=== PATIENT | female | born 1965 | race Caucasian/White ===

== ENCOUNTER 2016-12-08 13:00 | Inpatient (IN) ==
[2016-12-08 14:52] LABS: Basophils # (Auto) 0 K/mcL (0.0-0.3); Basophils % (Auto) 0.3 % (0.0-2.0); Eosinophils # (Auto) 0.1 K/mcL (0.0-0.7); Eosinophils % (Auto) 0.5 % (0.0-7.0); Lymphocytes # (Auto) 3.2 K/mcL (1.5-4.8); Lymphocytes % (Auto) 32.1 % (15.5-49.0); Mean Cell Volume 98.5 fL (80.0-100.0); Mean Corpuscular Hemoglobin 33.5 pg (26.0-34.0); Monocytes # (Auto) 0.5 K/mcL (0.1-0.9); Monocytes % (Auto) 5.1 % (1.0-12.0); Platelet Count 250 K/mcL (140-440); RBC 4.58 M/mcL (4.00-5.20); Red Cell Distribution Width 12.9 % (11.5-14.5)
[2016-12-08 15:02] LABS: Blood Urea Nitrogen 10 mg/dl (6-20)
[2016-12-08 15:46] LABS: Appearance,Urine CLOUDY; Bacteria,Urine 0 /hpf (0); Bilirubin,Urine NEG (NEG); Color,Urine YELLOW; Glucose,Urine (UA) NEGATIVE (NEG); Leukocyte Esterase,Urine 25 /uL (NEG); Mucus,Urine MANY /hpf (0); Nitrate,Urine NEG (NEG); Protein,Urine NEG (NEG); Specific Gravity,Urine 1.025 (1.000-1.035); Urine Blood NEG mg/dL (<0.03); Urine Budding Yeast FEW /hpf (0); Urine RBC 6 /hpf (0-1); Urine Squamous Epithelial Cell 21 /hpf (0-4); Urine Transitional Epi Cells < 1 /hpf (0-2); Urine WBC 5 /hpf (0-4)
[2016-12-14] MEDS ORDERED: PREGABALIN 75 MG CAPSULE PO SCH (05:00)
[2016-12-14] MEDS ORDERED: ceFAZolin 1 GM VIAL IV SCH (05:00)
[2016-12-14] MEDS ORDERED: CELECOXIB 200 MG CAPSULE PO SCH (05:00)
[2016-12-14] MEDS ORDERED: oxyCODONE 10 MG TAB.ER.12H PO SCH (05:00)
[2016-12-14] MEDS ORDERED: KETOROLAC 30 MG, ROPIVACAINE HCL/PF 49.5 ML, EPINEPHrine 0.5 MG, 0.9 % SODIUM CHLORIDE ... IJ SCH (06:30)
[2016-12-14] MEDS ORDERED: PROPOFOL 200 MG/20 ML VIAL IV ONE (15:15)
[2016-12-14] MEDS ORDERED: MIDAZOLAM 5 MG/5 ML VIAL IV ONE (15:15)
[2016-12-14] MEDS ORDERED: ROPIVACAINE HCL/PF 30 ML VIAL IJ ONE (15:15)
[2016-12-14] MEDS ORDERED: GLYCOPYRROLATE 0.2 MG/ML VIAL IV ONE (15:15)
[2016-12-14] MEDS ORDERED: PHENYLEPHRINE 10 MG/ML VIAL IV ONE (15:15)
[2016-12-14] MEDS ORDERED: ePHEDrine 50 MG/ML AMPUL IV ONE (15:15)
[2016-12-14] MEDS ORDERED: TRANEXAMIC ACID 1,000 MG/10 ML VIAL IV ONE (15:15)
[2016-12-14] MEDS ORDERED: DEXAMETHASONE 10 MG/ML VIAL IV ONE (15:15)
[2016-12-14] MEDS ORDERED: ONDANSETRON 4 MG/2 ML VIAL IV ONE (15:15)
[2016-12-14] MEDS ORDERED: LIDOCAINE HCL/PF 100 MG/5 ML SYRINGE IV ONE (15:15)
[2016-12-14] MEDS ORDERED: GENTAMICIN SULFATE 800 MG/20 ML VIAL IR ONE (15:40)
[2016-12-14] MEDS ORDERED: MEPERIDINE 25 MG/ML SYRINGE IV PRN (17:10)
[2016-12-14] MEDS ORDERED: FLUMAZENIL 0.1 MG/ML ML IV PRN (17:10)
[2016-12-14] MEDS ORDERED: fentaNYL 100 MCG/2 ML VIAL IV PRN (17:10)
[2016-12-14] MEDS ORDERED: PROMETHAZINE 25 MG/ML VIAL IM PRN ×2 (17:10→17:14)
[2016-12-14] MEDS ORDERED: ONDANSETRON 4 MG/2 ML VIAL IV PRN ×2 (17:10→17:14)
[2016-12-14] MEDS ORDERED: LACTATED RINGERS 250 ML IV PRN (17:10)
[2016-12-14] MEDS ORDERED: IPRATROPIUM/ALBUTEROL 3 ML AMPUL.NEB NEB PRN (17:10)
[2016-12-14] MEDS ORDERED: METHOCARBAMOL 1,000 MG/10 ML VIAL IV PRN (17:10)
[2016-12-14] MEDS ORDERED: HYDROmorphone 2 MG/ML SYRINGE IV PRN ×2 (17:10→17:14)
[2016-12-14] MEDS ORDERED: BENZOCAINE/MENTHOL 1 LOZENGE PO PRN ×2 (17:10→17:14)
[2016-12-14] MEDS ORDERED: NALOXONE HCL 0.4 MG/ML VIAL IV PRN (17:10)
[2016-12-14] MEDS ORDERED: ePHEDrine 50 MG/ML AMPUL IV PRN (17:10)
[2016-12-14] MEDS ORDERED: MEPERIDINE 50 MG/ML SYRINGE IM PRN (17:10)
[2016-12-14] MEDS ORDERED: diphenhydrAMINE 50 MG/ML VIAL IV PRN (17:10)
[2016-12-14] MEDS ORDERED: PROMETHAZINE 25 MG/ML VIAL IV PRN (17:10)
--- NOTE | 2016-12-14 17:13 | Brief Operative Note ---
Date of procedure: 12/14/16 Pre-op diagnosis: left knee osteoarthritis, retained hardware Post-op diagnosis: same Procedure: left total knee arthroplasty, hardware removal Grafts/Implants: Yes Anesthesia: spinal Complications: none Surgeon: Benji Cerrato Medical Records Field Technician: Sally Angelo Estimated blood loss (cc): 100 Tourniquet Time (Minutes): 73 Specimens Removed/Pathology: none sent Condition: stable Disposition: PACU
[2016-12-14] MEDS ORDERED: METHOCARBAMOL 750 MG TABLET PO PRN (17:14)
[2016-12-14] MEDS ORDERED: POLYETHYLENE GLYCOL 3350 17 GM PACKET PO PRN (17:14)
[2016-12-14] MEDS ORDERED: DEXTROSE 50% 50 ML VIAL IV PRN (17:14)
[2016-12-14] MEDS ORDERED: MAGNESIUM HYDROXIDE 30 ML ORAL.SUSP PO PRN (17:14)
[2016-12-14] MEDS ORDERED: TRANEXAMIC ACID 1,000 MG/10 ML VIAL IV SCH (17:14)
[2016-12-14] MEDS ORDERED: FLEETS ADULT ENEMA PR PRN (17:14)
[2016-12-14] MEDS ORDERED: BISACODYL 10 MG SUPP.RECT PR PRN (17:14)
[2016-12-14] MEDS ORDERED: LACTATED RINGERS 1,000 ML IV SCH (17:15)
[2016-12-14] MEDS ORDERED: INSULIN LISPRO 1 UNIT/0.01 ML UNIT SQ SCH (17:30)
--- NOTE | 2016-12-14 18:15 | XRay Report ---
HISTORY: Reason for Exam:Post-Op Total Knee FINDINGS: There is a well positioned total knee prosthesis. No fracture is present. Air is present in the soft tissues around the joint due to the surgical procedure. There are calcified phleboliths in the anterior smith. IMPRESSION: Well-positioned left knee prosthesis Interpreted and Authenticated by: Magdy Trejo 12/14/16
[2016-12-14] MEDS: 0.9 % SODIUM CHLORIDE 1,000 ML IV SCH (19:11)
[2016-12-14] MEDS: DOCUSATE SODIUM 100 MG CAPSULE PO SCH (21:46)
[2016-12-14] MEDS: FERROUS SULFATE 325 MG TABLET PO SCH (21:47)
[2016-12-14] MEDS: ASPIRIN 325 MG ENTERIC COATED TABLET PO SCH (21:47)
[2016-12-14] MEDS: CITALOPRAM 20 MG TABLET PO SCH (21:47)
[2016-12-14] MEDS: traZODone HCL 50 MG TABLET PO SCH (21:47)
[2016-12-14] MEDS: SENNOSIDES 1 TABLET PO SCH (21:47)
[2016-12-14] MEDS: SIMVASTATIN 20 MG TABLET PO SCH (21:48)
[2016-12-14] MEDS: MIRTAZAPINE 15 MG TABLET PO SCH (21:48)
[2016-12-14] MEDS: metFORMIN 500 MG TABLET PO SCH (21:48)
[2016-12-14] MEDS: INSULIN LISPRO 1 UNIT/0.01 ML UNIT SQ SCH (21:49)
[2016-12-14] MEDS: LOSARTAN 25 MG TABLET PO SCH (21:51)
[2016-12-14] MEDS: 0.9 % SODIUM CHLORIDE 10 ML SYRINGE IV SCH (22:44)
[2016-12-14] MEDS: ceFAZolin 1 GM VIAL IV SCH (23:15)
[2016-12-15] MEDS: 0.9 % SODIUM CHLORIDE 1,000 ML IV SCH ×4 (03:55→16:54)
[2016-12-15] MEDS: 0.9 % SODIUM CHLORIDE 10 ML SYRINGE IV SCH ×3 (06:00→21:28)
--- NOTE | 2016-12-15 06:49 | Orthopedic Progress Note ---
Subjective Patient information: Note initiated : 12/15/16 at 6:47 am Service Date, if different from initiated Date: [] Patient: Unique Spencer 51 y/o F admitted on 12/14/16 for Left Total Knee Arthroplasty. Chief Complaint: [] Interval history: doing well. pain under control Objective Vital signs: Vital Signs Temp Pulse Resp BP Pulse Ox 12/15/16 03:06 98.1 F 69 18 105/68 92 12/14/16 23:16 97.6 F 70 18 92/58 93 12/14/16 21:15 98 12/14/16 21:14 98 12/14/16 21:05 76 113/75 98 12/14/16 20:05 63 101/66 94 12/14/16 19:35 62 105/72 94 12/14/16 19:05 68 96/63 93 12/14/16 18:50 66 104/48 92 12/14/16 18:35 64 118/73 89 L 12/14/16 18:20 67 123/79 84 L 12/14/16 18:15 97.1 F 66 16 114/65 96 12/14/16 18:05 97.1 F 66 16 114/65 96 12/14/16 17:50 97.1 F 76 16 137/79 99 12/14/16 17:45 97.1 F 71 16 134/70 96 12/14/16 17:40 97.1 F 70 16 119/68 95 12/14/16 17:35 97.1 F 66 16 101/62 93 12/14/16 13:02 98.3 F 16 122/74 92 Intake and Output 12/14/16 12/15/16 12/15/16 21:59 05:59 13:59 Intake Total 2040 / 2040 1200 / 1200 Output Total 450 / 450 200 / 200 Balance 1590 / 1590 1000 / 1000 Intake: IV 1000 / 1000 Sodium Chloride 0.9% 1, 1000 / 1000 000 ml @ 125 mls/hr IV . Q8H [facility] Rx#:[id number] Oral 240 / 240 200 / 200 IV - Manual Only 1800 / 1800 Output: Urine Catheter Amount 450 / 450 200 / 200 Other: Meal Dinner Percent of Meal Consumed 75% Feeding Ability Independent Weight 174 lb 8 oz Intake & Output: Intake & Output 12/14/16 12/15/1617 21:59 05:59 13:59 Intake Total 0 / 2040 1200 / 1200 Output Total 450 / 450 200 / 200 Balance 1590 / 1590 1000 / 1000 Weight 174 lb 8 oz Intake: IV 1000 / 1000 Sodium Chloride 0.9% 1, 1000 / 1000 000 ml @ 125 mls/hr IV . Q8H [facility] Rx#:[id number] Oral 240 / 240 200 / 200 IV - Manual Only 1800 / 1800 Output: Urine Catheter Amount 450 / 450 200 / 200 Other: Meal Dinner Percent of Meal Consumed 75% Feeding Ability Independent Incision: Yes healing Incision clean and dry: Yes Dressing: Yes clean, Yes dry, Yes intact Weight bearing status: full Neurological exam IM: Yes alert, Yes normal gait, Yes oriented X3, Yes motor sensory intact, Yes neurovascular intact Extremities exam IM: Yes normal inspection, Yes Foot pink and warm, Yes neurovascular intact - Labs CBC & BMP: 12/08/16 13:46 12/08/16 13:46 Labs: Orthopedic Labs 12/08/16 12/08/16 13:46 13:34 PT 13.7 Cancelled INR 1.0 Cancelled 12/15/16 12/08/16 12/08/16 05:38 13:46 13:35 Hgb Pending 15.4 H Cancelled Hct Pending 45.1 Cancelled Assessment and Plan (1) Knee osteoarthritis pod 1 s/p tka wbat pain control dvt prophylaxis d/c planning Status: Acute
--- NOTE | 2016-12-15 06:51 | Discharge Summary ---
Ortho Discharge - TKA - Patient Instructions Diet: Regular Diet Activity: activity as tolerated, ambulate with assistive device, weight bearing as tolerated Total Knee Protocol: For Total Knee: Start ROM NGA with stationary bike or rocking chair. Work on gaining full extension of knee. Posterior dislocation precautions provided. Hip abductor strengthening and gait training instructions provided. Apply Cryocuff as instructed. Dressing Care: May shower in 2 days Patient Education: Total Knee Replacement (DC) - Problem Maintenance (1) Knee osteoarthritis Status: Acute - Follow Up Plan Follow Up Appointments: Sally Angelo PA-C [Physician Strategic Marketing Manager] - 12/29/16 10:40 am Disposition: Home, Self-Care Prognosis: Good Rehab Potential: Good I certify that the patient requires SNF services: No Overall status at discharge: patient is progressing back to baseline - Orders For Discharge Prescriptions: Aspirin [Ecotrin] 325 mg PO BID #60 Docusate Sodium [Colace] 100 mg PO BID #60 capsule oxyCODONE/APAP [Percocet 5-325 mg] 1 - 2 tab PO Q4HP PRN #60 tablet PRN Reason: Pain
[2016-12-15] MEDS: ceFAZolin 1 GM VIAL IV SCH (06:57)
[2016-12-15] MEDS: INSULIN LISPRO 1 UNIT/0.01 ML UNIT SQ SCH ×4 (07:54→21:26)
[2016-12-15] MEDS: LEVOTHYROXINE 25 MCG TABLET PO SCH (07:55)
[2016-12-15] MEDS: FERROUS SULFATE 325 MG TABLET PO SCH ×2 (07:55→17:12)
[2016-12-15] MEDS: LEVOTHYROXINE SODIUM 112 MCG TABLET PO SCH (07:55)
[2016-12-15] MEDS: metFORMIN 500 MG TABLET PO SCH ×2 (07:55→17:12)
[2016-12-15] MEDS: PANTOPRAZOLE 40 MG TABLET PO SCH (07:55)
[2016-12-15] MEDS: GLIMEPIRIDE 2 MG TABLET PO SCH (08:05)
--- NOTE | 2016-12-15 09:15 | Operative Note ---
DATE OF OPERATION: 12/14/2016 PREOPERATIVE DIAGNOSES: 1. Degenerative joint disease, left knee. 2. Retained hardware, left knee. POSTOPERATIVE DIAGNOSES: 1. Degenerative joint disease, left knee. 2. Retained hardware, left knee. PROCEDURE: 1. Left total knee arthroplasty. 2. Left knee hardware removal. SURGEON: Amalia Cerrato M.D. BAKERY TEAM LEADER SURGEON: Sally Angelo PA-C. ANESTHESIA: Spinal with LMA assist. ESTIMATED BLOOD LOSS: 100 mL. COMPLICATIONS: None noted. SPECIMENS REMOVED: None. DRAINS: None. TOURNIQUET TIME: 1 hour 13 minutes at 300 mmHg. IMPLANTS: DePuy CMW2 gentamicin bone cement 20 grams x4; DePuy Attune patella medialized dome 35 mm cemented AOX; DePuy Attune tibial insert fixed bearing posterior stabilized size 5, 6 mm AOX; DePuy Attune femoral posterior stabilized size 5, left narrow; DePuy Attune tibial base fixed bearing size 4 cemented. INDICATIONS: The patient has had a long-standing history of worsening pain in the knee that has failed conservative treatment. Radiographs have confirmed advanced degenerative joint disease. After a long discussion about treatment options, the patient elected to proceed with a knee arthroplasty. The risks and benefits were discussed with the patient in detail including, but not limited to, the risks of anesthesia, problems with the heart or lungs related to anesthesia, infection, compromise or injury to the nerves and blood vessels, deep venous thrombosis, pulmonary embolism, pneumonia, continued pain after surgery, worsening pain or symptoms after surgery, swelling, loss of motion, instability, leg length discrepancy, and need for repeat surgery. DESCRIPTION OF PROCEDURE: The patient was seen in the pre-anesthesia waiting room where all questions were answered and the correct side and site were identified and marked. The patient was transferred to the operating room and administered the anesthetic and given pre-operative antibiotics. A time-out was then called. The extremity was prepped and draped, exsanguinated, and the tourniquet was inflated to 300 mmHg. A midline skin incision was then made with a standard medial parapatellar arthrotomy. Debridement of the menisci, ACL, and PCL was performed followed by balancing releases in the medial lateral plane. We then established intramedullary access to both the femur and tibia in a standard fashion. The femoral guide daina was initially placed with the distal femoral guide, pinned into place, and the distal femoral cut was performed and checked with a flat plate. We then turned our attention to the tibia. There was a screw in the tibial tubercle. This was dissected down, and we removed the screw. It was a 4.5 mm cortical screw, and this was backed out. The intramedullary guide was placed with the proximal tibial cutting block. The block was appropriately positioned off the affected side, varus and valgus was checked with the extra-medullary guide, and the block was pinned into place. The proximal tibial cut was performed and the tibia was prepared for the tibial implant with appropriate rotation. The tibia, femur, and posterior compartment were debrided of osteophytes, loose bodies, and meniscal fragments We then used the gap balancing technique to balance extension with the first two cuts and good balancing was obtained with a 10 millimeter gap block. We turned our attention back to the femur and used the referencing block and implant to size appropriately. Using the gap balancing technique for the flexion space we set our rotation of the femur off the tibial cut. Anesthesia gave the patient 1 gram of Tranexamic Acid via an intravenous route. We placed the 4 in 1 cutting block and made anterior, posterior, and chamfer cuts. Box plasty cuts were then made in a standard fashion for the posterior stabilized prosthesis. We then completed osteophyte release and posterior capsule release from the posterior compartment. Trials were placed and we chose the polyethylene insert thickness that provided the best stability in all planes. With the trials in place, we did a measured resection for a resurfacing patella. We sized the patella and placed the patella trial and performed a lateral facetectomy with the saw and rongeur. Good tracking was obtained. We removed all trials, irrigated and dried all cut surfaces. We cemented the components into place including tibia, femur and patella. We placed a trial liner and held the knee in full extension with the patella compressed while the cement cured. We then removed all excess cement and placed the final polyethylene tibiofemoral component. Irrigation with 3 liters of antibiotic saline was then performed using jet-lavage. We let the tourniquet down and coagulated bleeding vessels. We injected a 100 cubic centimeter volume including Ropivacaine 49.25 cubic centimeters at 5 milligrams per cubic centimeter, Ketorolac 30 milligrams, and Epinephrine 0.5 milligrams into 100 cubic centimeters volume of normal saline. We placed a deep drain and closed the retinaculum with looped #0 Maxon. We closed the subcutaneous tissue and skin in layers out to bart in the skin. A sterile pressure dressing was applied. All needle and sponge counts were correct. The patient was transferred to the recovery room in stable condition. WANDA:[email or web address] Job ID: [id number] Doc ID: [id number] Amalia Cerrato MD
[2016-12-15] MEDS: DOCUSATE SODIUM 100 MG CAPSULE PO SCH ×2 (09:37→21:24)
[2016-12-15] MEDS: ASPIRIN 325 MG ENTERIC COATED TABLET PO SCH ×2 (09:38→21:24)
[2016-12-15] MEDS: oxyCODONE/APAP 5/325MG TABLET PO PRN ×2 (14:06→21:24)
[2016-12-15] MEDS: LOSARTAN 25 MG TABLET PO SCH (21:24)
[2016-12-15] MEDS: traZODone HCL 50 MG TABLET PO SCH (21:24)
[2016-12-15] MEDS: SIMVASTATIN 20 MG TABLET PO SCH (21:24)
[2016-12-15] MEDS: CITALOPRAM 20 MG TABLET PO SCH (21:25)
[2016-12-15] MEDS: MIRTAZAPINE 15 MG TABLET PO SCH (21:25)
[2016-12-15] MEDS: SENNOSIDES 1 TABLET PO SCH (21:25)
[2016-12-15] MEDS ORDERED: FUROSEMIDE 20 MG/2 ML VIAL IV ONE ×2 (22:00→22:05)
[2016-12-16] MEDS: oxyCODONE/APAP 5/325MG TABLET PO PRN ×3 (01:16→08:53)
[2016-12-16] MEDS: 0.9 % SODIUM CHLORIDE 1,000 ML IV SCH (01:17)
[2016-12-16] MEDS: 0.9 % SODIUM CHLORIDE 10 ML SYRINGE IV SCH (05:23)
--- NOTE | 2016-12-16 06:53 | Orthopedic Progress Note ---
Subjective Patient information: Note initiated : 12/16/16 at 6:52 am Service Date, if different from initiated Date: [] Patient: Unique Spencer 51 y/o F admitted on 12/14/16 for Left Total Knee Arthroplasty. Chief Complaint: [] Interval history: doing well. no complaints Objective Vital signs: Vital Signs Temp Pulse Pulse Resp BP Pulse Ox 12/16/16 04:00 98.7 F 81 16 100/64 91 12/15/16 23:13 97.9 F 67 20 113/71 94 12/15/16 20:00 98.6 F 72 20 111/66 94 12/15/16 17:08 95 12/15/16 16:00 97.7 F 18 103/67 90 12/15/16 12:07 93 12/15/16 12:00 97.7 F 18 98/60 95 12/15/16 07:18 97.5 F 18 92/58 95 12/15/16 07:13 66 93 12/15/16 07:12 93 Intake and Output 12/15/16 12/16/16 12/16/16 21:59 05:59 13:59 Intake Total 1350 / 1350 Output Total 400 / 400 676 / 676 Balance -400 / -400 674 / 674 Intake: IV 1000 / 1000 Sodium Chloride 0.9% 1, 1000 / 1000 000 ml @ 125 mls/hr IV . Q8H [facility] Rx#:[id number] Oral 350 / 350 Output: Void Amount 400 / 400 675 / 675 # of times incontinent of 1 / 1 urine Other: Meal Dinner Percent of Meal Consumed 100% # Voids 1 1 Weight 184 lb 8 oz Intake & Output: Intake & Output 12/15/16 12/16/16 12/16/16 21:59 05:59 13:59 Intake Total 1350 / 1350 Output Total 400 / 400 676 / 676 Balance -400 / -400 674 / 674 Weight 184 lb 8 oz Intake: IV 1000 / 1000 Sodium Chloride 0.9% 1, 1000 / 1000 000 ml @ 125 mls/hr IV . Q8H [facility] Rx#:[id number] Oral 350 / 350 Output: Void Amount 400 / 400 675 / 675 # of times incontinent of 1 / 1 urine Other: Meal Dinner Percent of Meal Consumed 100% # Voids 1 1 Incision: Yes healing Incision clean and dry: Yes Dressing: Yes clean, Yes dry, Yes intact Weight bearing status: full Neurological exam IM: Yes alert, Yes normal gait, Yes oriented X3, Yes motor sensory intact, Yes neurovascular intact Extremities exam IM: No calf tenderness, Yes Foot pink and warm, Yes neurovascular intact - Labs CBC & BMP: 12/15/16 05:38 12/08/16 13:46 Labs: Orthopedic Labs 12/08/16 12/08/16 13:46 13:34 PT 13.7 Cancelled INR 1.0 Cancelled 12/16/16 12/15/16 12/08/16 04:45 05:38 13:46 Hgb Pending 12.6 15.4 H Hct Pending 36.9 45.1 12/08/16 13:35 Hgb Cancelled Hct Cancelled Assessment and Plan (1) Knee osteoarthritis pod 2 s/p tka wbat pain control dvt prophylaxis d/c planning Status: Acute
[2016-12-16] MEDS: LEVOTHYROXINE 25 MCG TABLET PO SCH (07:10)
[2016-12-16] MEDS: GLIMEPIRIDE 2 MG TABLET PO SCH (07:10)
[2016-12-16] MEDS: LEVOTHYROXINE SODIUM 112 MCG TABLET PO SCH (07:10)
[2016-12-16] MEDS: PANTOPRAZOLE 40 MG TABLET PO SCH (07:10)
[2016-12-16] MEDS: INSULIN LISPRO 1 UNIT/0.01 ML UNIT SQ SCH (07:16)
[2016-12-16] MEDS: metFORMIN 500 MG TABLET PO SCH (08:40)
[2016-12-16] MEDS: DOCUSATE SODIUM 100 MG CAPSULE PO SCH (08:40)
[2016-12-16] MEDS: FERROUS SULFATE 325 MG TABLET PO SCH (08:40)
[2016-12-16] MEDS: ASPIRIN 325 MG ENTERIC COATED TABLET PO SCH (08:40)
== END 2016-12-16 11:40 | disposition home or self-care (01) | DRG 470 ==
LOC: MEDSUR 12-14 12:45
PROVIDERS: ADMIT Orthopaedic Surgery Sports Medicine; ATTEND Orthopaedic Surgery Sports Medicine

== ENCOUNTER 2016-12-19 18:00 | Inpatient (IN) ==
[2016-12-19] MEDS ORDERED: 0.9 % SODIUM CHLORIDE 1,000 ML IV ONE ×2 (18:12→19:26)
[2016-12-19] MEDS ORDERED: ONDANSETRON 4 MG/2 ML VIAL IV ONE (18:19)
[2016-12-19] MEDS ORDERED: PROMETHAZINE 25 MG/ML VIAL ONE (18:39)
[2016-12-19] MEDS ORDERED: PROMETHAZINE 25 MG/ML VIAL IV ONE (18:43)
--- NOTE | 2016-12-19 18:43 | Emergency Department Note ---
SOB HPI - General Chief Complaint: Shortness of Breath/Dyspnea Stated Complaint: Shortness of breath, vomiting Time Seen by Provider: 12/19/16 18:38 Source: patient Mode of arrival: ambulatory Limitations: no limitations - History of Present Illness This patient had a left knee replacement last Tuesday by Dr. Cerrato. Today she developed nausea vomiting diarrhea and 30 minutes ago developed shortness of breath. No significant cough no pain with breathing. She does have swelling to the left leg. Her O2 saturation is 100% on room air. EKG was unremarkable. No chest pain. No abdominal pain. She does have clubbing but does not know the etiology. Does not have known COPD asthma cor pulmonale or pulmonary hypertension. MD Complaint: shortness of breath Onset (ago): minute(s) Context: recent illness Severity: moderate Consistency/Duration: constant Improves with: nothing - Related Data Home Medications Medication Instructions Recorded Confirmed Citalopram [Celexa] 40 mg PO HS 12/08/16 12/19/16 Ferrous Sulfate 325 mg PO BIDCC 12/08/16 12/19/16 Glimepiride [Amaryl] 2 mg PO QAMAC 12/08/16 12/19/16 Insulin Aspart [Novolog] 3 unit SQ TIDAC 12/08/16 12/19/16 Levothyroxine Sodium [Synthroid] 137 mcg PO QAMAC 12/08/16 12/19/16 Losartan [Cozaar] 6.25 mg PO HS 12/08/16 12/19/16 Mirtazapine [Remeron] 45 mg PO HS 12/08/16 12/19/16 Multivit,Ther Iron,Ca,FA & Min 1 tab PO DAILY 12/08/16 12/19/16 [Multivitamin W/Minerals] Omeprazole [PriLOSEC] 20 mg PO ACB 12/08/16 12/19/16 Pravastatin [Pravachol] 40 mg PO HS 12/08/16 12/19/16 metFORMIN [Glucophage] 500 mg PO BIDCC 12/08/16 12/19/16 traZODone HCL [Trazodone HCl] 50 mg PO HS 12/08/16 12/19/16 Previous Rx's Medication Instructions Recorded oxyCODONE/APAP [Percocet 5-325 mg] 1 - 2 tab PO Q4HP PRN #60 tablet 12/15/16 Ondansetron HCl [Zofran ODT] 4 mg SL Q4-6HP PRN #14 tablet 12/19/16 Allergies Allergy/AdvReac Type Severity Reaction Status Date / Time hydrocodone AdvReac Mild Itching Verified 12/19/16 18:05 codeine AdvReac Unknown Verified 12/19/16 18:05 ibuprofen [From Motrin] AdvReac Unknown Verified 12/19/16 18:05 lisinopril AdvReac Unknown Verified 12/19/16 18:05 quetiapine [From Seroquel] AdvReac Unknown Verified 12/19/16 18:05 Review of Systems Constitutional: Denies: fever, chills Eyes: Denies: eye pain ENT ED: Denies: ear pain Cardiovascular: Denies: chest pain Respiratory: Reports: dyspnea. Denies: cough Gastrointestinal: Reports: nausea, vomiting, diarrhea. Denies: abdominal pain Genitourinary: Denies: urgency Musculoskeletal: Denies: back pain Integumentary: Denies: rash, lesions Past Medical History - Past Medical History Medical history: Reports: arthritis, diabetes, hypertension, thyroid disease Surgical history ED: Reports: cholecystectomy, knee replacement Psychiatric history: Reports: depression Physical Exam - General Limitations: no limitations General appearance: alert, in no apparent distress - Head Head exam: atraumatic, normocephalic - Eye Eye exam: Present: normal appearance - ENT ENT exam: normal exam - Neck Neck exam: Present: normal inspection - Chest Chest inspection: Present: normal inspection - Respiratory Respiratory exam: Present: normal lung sounds bilaterally - Cardiovascular Cardiovascular exam: Present: regular rate, normal rhythm, normal heart sounds - Abdominal Exam Abdominal exam: Present: soft. Absent: distention, tenderness - Neurological Exam Neurological exam: Present: alert - Psychiatric Psychiatric exam: Present: normal affect, normal mood - Skin Skin exam: Present: warm, dry, intact Course Vital Signs Temperature 98.2 F 12/19/16 18:00 Pulse Rate 69 12/19/16 18:00 Respiratory Rate 18 12/19/16 18:00 Blood Pressure 148/79 12/19/16 18:00 Pulse Oximetry (%) 95 12/19/16 18:00 Temperature 98.2 F 12/19/16 18:00 Pulse Rate 73 12/19/16 21:00 Respiratory Rate 17 12/19/16 21:00 Blood Pressure 146/75 12/19/16 21:00 Pulse Oximetry (%) 93 12/19/16 21:00 Shortness of Breath/Dyspnea - [facility] Narrative Medical decision making narrative: CTA of chest was negative for PE but does show chronic lung disease with some sort of ground glass appearance. Left leg was negative for DVT. Nausea came under control with Zofran and Compazine. She finally felt well enough to go home. I think she most likely has a viral gastroenteritis. - Lab Data Lab results reviewed: Yes I reviewed the patient's lab results. Result diagrams: 12/19/16 18:14 12/19/16 18:14 Lab Results 12/19/16 12/19/16 12/19/16 Range/Units 18:14 18:14 18:14 WBC 11.6 H (4.5-11.0) K/mcL RBC 3.53 L (4.00-5.20) M/mcL Hgb 12.1 (12.0-15.0) g/dL Hct 34.7 L (36.0-48.0) % MCV 98.3 (80.0-100.0) fL MCH 34.2 H (26.0-34.0) pg MCHC 34.8 (31.0-36.0) g/dL RDW 12.8 (11.5-14.5) % Plt Count 291 (140-440) K/mcL MPV 7.9 (7.4-10.4) fL Gran % 78.2 H (38.0-78.0) % Lymph % (Auto) 15.5 (15.5-49.0) % [place] % (Auto) 5.5 (1.0-12.0) % Eos % (Auto) 0.6 (0.0-7.0) % Baso % (Auto) 0.2 (0.0-2.0) % Gran # 9.1 H (1.8-8.0) K/mcL Lymph # 1.8 (1.5-4.8) K/mcL Titus # 0.6 (0.1-0.9) K/mcL Eos # 0.1 (0.0-0.7) K/mcL Baso # 0 (0.0-0.3) K/mcL PT (11.9-14.5) sec INR (0.9-1.1) D-Dimer 1.79 H (0.00-0.40) ug/ml Sodium 140 (133-145) mmol/L Potassium 3.2 L (3.3-5.1) mmol/L Chloride 98 (96-108) mmol/L Carbon Dioxide 21 L (22-30) mmol/L Anion Gap 21.0 H (8-16) BUN 11 (6-20) mg/dl Creatinine 0.6 (0.6-1.1) mg/dl GFR Calculation 104 Glucose 147 H (70-105) mg/dL Calcium 8.9 (8.6-10.4) mg/dl Total Bilirubin 0.9 (0.0-1.0) mg/dL AST 16 (0-37) U/l ALT 10 (0-40) U/l Alkaline Phosphatase 67 (39-117) U/L Troponin T (0-0.03) ng/ml NT-Pro-B Natriuret Pep (0-125) pg/ml Total Protein 7.4 (5.9-8.4) gm/dL Albumin 3.8 (3.2-5.2) gm/dL Globulin 3.6 (2.2-3.7) gm/dL Albumin/Globulin Ratio 1.1 (1.0-2.3) Urine Color Urine Appearance Urine pH (5.0-9.0) Ur Specific [place] (1.000-1.035) Urine Protein (NEG) mg/dL Urine Glucose (UA) (NEG) mg/dL Urine Ketones (NEG) mg/dL Urine Occult Blood (<0.03) mg/dL Urine Nitrate (NEG) Urine Bilirubin (NEG) mg/dL Urine Urobilinogen (NEG) mg/dL Ur Leukocyte Esterase (NEG) /uL Ur Culture Indicated? 12/19/16 12/19/16 12/19/16 Range/Units 18:14 18:14 18:14 WBC (4.5-11.0) K/mcL RBC (4.00-5.20) M/mcL Hgb (12.0-15.0) g/dL Hct (36.0-48.0) % MCV (80.0-100.0) fL MCH (26.0-34.0) pg MCHC (31.0-36.0) g/dL RDW (11.5-14.5) % Plt Count (140-440) K/mcL MPV (7.4-10.4) fL Gran % (38.0-78.0) % Lymph % (Auto) (15.5-49.0) % [place]itus % (Auto) (1.0-12.0) % Eos % (Auto) (0.0-7.0) % Baso % (Auto) (0.0-2.0) % Gran # (1.8-8.0) K/mcL Lymph # (1.5-4.8) K/mcL Titus # (0.1-0.9) K/mcL Eos # (0.0-0.7) K/mcL Baso # (0.0-0.3) K/mcL PT 13.6 (11.9-14.5) sec INR 1.0 (0.9-1.1) D-Dimer (0.00-0.40) ug/ml Sodium (133-145) mmol/L Potassium (3.3-5.1) mmol/L Chloride (96-108) mmol/L Carbon Dioxide (22-30) mmol/L Anion Gap (8-16) BUN (6-20) mg/dl Creatinine (0.6-1.1) mg/dl GFR Calculation Glucose (70-105) mg/dL Calcium (8.6-10.4) mg/dl Total Bilirubin (0.0-1.0) mg/dL AST (0-37) U/l ALT (0-40) U/l Alkaline Phosphatase (39-117) U/L Troponin T < 0.01 (0-0.03) ng/ml NT-Pro-B Natriuret Pep 1123.0 H (0-125) pg/ml Total Protein (5.9-8.4) gm/dL Albumin (3.2-5.2) gm/dL Globulin (2.2-3.7) gm/dL Albumin/Globulin Ratio (1.0-2.3) Urine Color Urine Appearance Urine pH (5.0-9.0) Ur Specific [place] (1.000-1.035) Urine Protein (NEG) mg/dL Urine Glucose (UA) (NEG) mg/dL Urine Ketones (NEG) mg/dL Urine Occult Blood (<0.03) mg/dL Urine Nitrate (NEG) Urine Bilirubin (NEG) mg/dL Urine Urobilinogen (NEG) mg/dL Ur Leukocyte Esterase (NEG) /uL Ur Culture Indicated? 12/19/16 Range/Units 19:26 WBC (4.5-11.0) K/mcL RBC (4.00-5.20) M/mcL Hgb (12.0-15.0) g/dL Hct (36.0-48.0) % MCV (80.0-100.0) fL MCH (26.0-34.0) pg MCHC (31.0-36.0) g/dL RDW (11.5-14.5) % Plt Count (140-440) K/mcL MPV (7.4-10.4) fL Gran % (38.0-78.0) % Lymph % (Auto) (15.5-49.0) % [place] % (Auto) (1.0-12.0) % Eos % (Auto) (0.0-7.0) % Baso % (Auto) (0.0-2.0) % Gran # (1.8-8.0) K/mcL Lymph # (1.5-4.8) K/mcL Titus # (0.1-0.9) K/mcL Eos # (0.0-0.7) K/mcL Baso # (0.0-0.3) K/mcL PT (11.9-14.5) sec INR (0.9-1.1) D-Dimer (0.00-0.40) ug/ml Sodium (133-145) mmol/L Potassium (3.3-5.1) mmol/L Chloride (96-108) mmol/L Carbon Dioxide (22-30) mmol/L Anion Gap (8-16) BUN (6-20) mg/dl Creatinine (0.6-1.1) mg/dl GFR Calculation Glucose (70-105) mg/dL Calcium (8.6-10.4) mg/dl Total Bilirubin (0.0-1.0) mg/dL AST (0-37) U/l ALT (0-40) U/l Alkaline Phosphatase (39-117) U/L Troponin T (0-0.03) ng/ml NT-Pro-B Natriuret Pep (0-125) pg/ml Total Protein (5.9-8.4) gm/dL Albumin (3.2-5.2) gm/dL Globulin (2.2-3.7) gm/dL Albumin/Globulin Ratio (1.0-2.3) Urine Color Yellow Urine Appearance Clear Urine pH 6.0 (5.0-9.0) Ur Specific [place] 1.024 (1.000-1.035) Urine Protein Neg (NEG) mg/dL Urine Glucose (UA) Negative (NEG) mg/dL Urine Ketones 80 A (NEG) mg/dL Urine Occult Blood Neg (<0.03) mg/dL Urine Nitrate Neg (NEG) Urine Bilirubin Neg (NEG) mg/dL Urine Urobilinogen 2.0 A (NEG) mg/dL Ur Leukocyte Esterase Neg (NEG) /uL Ur Culture Indicated? No - Radiology Data Radiology results reviewed: Yes I reviewed the patient's radiology results. Disposition Clinical Impression: Gastroenteritis Disposition: Home, Self-Care Condition: Good Instructions: Gastroenteritis (ED) Prescriptions: Ondansetron HCl [Zofran ODT] 4 mg SL Q4-6HP PRN #14 tablet PRN Reason: Nausea Referrals: Caroline Cardona ARNP [Primary Care Provider] - Time of Disposition: 21:52
[2016-12-19 18:50] LABS: Basophils # (Auto) 0 K/mcL (0.0-0.3); Basophils % (Auto) 0.2 % (0.0-2.0); Eosinophils # (Auto) 0.1 K/mcL (0.0-0.7); Eosinophils % (Auto) 0.6 % (0.0-7.0); Granulocytes % (Auto) 78.2 % (38.0-78.0); Lymphocytes # (Auto) 1.8 K/mcL (1.5-4.8); Lymphocytes % (Auto) 15.5 % (15.5-49.0); Mean Cell Volume 98.3 fL (80.0-100.0); Mean Corpuscular HGB Conc 34.8 g/dL (31.0-36.0); Mean Corpuscular Hemoglobin 34.2 pg (26.0-34.0); Monocytes # (Auto) 0.6 K/mcL (0.1-0.9); Monocytes % (Auto) 5.5 % (1.0-12.0); Platelet Count 291 K/mcL (140-440); RBC 3.53 M/mcL (4.00-5.20); Red Cell Distribution Width 12.8 % (11.5-14.5)
[2016-12-19 19:15] LABS: ALT/SGPT 10 U/l (0-40); Albumin 3.8 gm/dL (3.2-5.2); Albumin/Globulin Ratio 1.1 (1.0-2.3); Alkaline Phosphatase 67 U/L (39-117); Blood Urea Nitrogen 11 mg/dl (6-20)
[2016-12-19] MEDS ORDERED: PROCHLORPERAZINE 10 MG/2 ML VIAL IV ONE (19:46)
[2016-12-19 20:15] LABS: Appearance,Urine CLEAR; Bilirubin,Urine NEG (NEG); Color,Urine YELLOW; Glucose,Urine (UA) NEGATIVE (NEG); Leukocyte Esterase,Urine NEG /uL (NEG); Nitrate,Urine NEG (NEG); Protein,Urine NEG (NEG); Specific Gravity,Urine 1.024 (1.000-1.035); Urine Blood NEG mg/dL (<0.03)
--- NOTE | 2016-12-19 20:19 | XRay Report ---
HISTORY: Reason for Exam:Shortness of breath FINDINGS: The lungs are clear. The heart, mediastinum, rosemary and pleura are normal. IMPRESSION: Normal chest Interpreted and Authenticated by: Magdy Trejo 12/19/16
--- NOTE | 2016-12-19 20:20 | XRay Report ---
HISTORY: Reason for Exam:nausea, vomiting, diarrhea FINDINGS: The bowel pattern is normal. The stomach is decompressed and there is very little air in the large or small intestine. There are clips in the gallbladder fossa. There are several phleboliths in the pelvis. There are a few vascular calcifications in both sides of the pelvis and in the groin. There is spur formation around the margins of the disks in the lower thoracic and mid lumbar spine. There is also a mild dextroscoliotic curvature. IMPRESSION: Normal bowel pattern Interpreted and Authenticated by: Magdy Trejo 12/19/16
--- NOTE | 2016-12-19 20:47 | Cat Scan Report ---
CLINICAL INFORMATION: Reason for Exam:Chest tightness, PE COMPARISON: None TECHNIQUE: Axial images obtained through the chest. intravenous contrast administration was administered, and scanning was performed during pulmonary arterial phase. Sagittally and coronally reformatted images were obtained. MIP reformatted images. FINDINGS: The pulmonary arteries are normal with no intraluminal filling defects. The aorta is normal in caliber and there is no aneurysm or dissection. Small amount of plaque is seen in the aortic arch. There is also plaque formation in the left anterior descending coronary artery. The heart size is normal. There is a mosaic pattern of mild groundglass alveolar opacities in both lower lobes and lingula. No lobar consolidation is present and there is no mass or pleural effusion. There is honeycombing in both upper lobes with numerous tiny cystic structures, predominantly in the periphery of the lungs. Associated with this is mild interstitial fibrosis. There are no abnormally enlarged lymph nodes. Patient is small hiatus hernia. There is moderate amount of gas in the distal thoracic esophagus. IMPRESSION: No evidence of pulmonary emboli Mild groundglass alveolar infiltrates in both lower lobes and lingula with honeycombing and mild interstitial fibrosis in the upper lobes. This could be due to a relatively early stage of usual interstitial pneumonia (idiopathic pulmonary fibrosis). Chronic hypersensitivity reaction and pneumonia are also in the differential. Mild atherosclerotic coronary artery disease Dr. Nieves was called with results Interpreted and Authenticated by: Magdy Trejo 12/19/16
[2016-12-19] MEDS ORDERED: ONDANSETRON (PP) 4 MG TABLET SL ONE (21:50)
[2016-12-19] MEDS ORDERED: IODIXANOL 100 ML BOTTLE IV ONE (22:46)
[2016-12-20] MEDS ORDERED: 0.9 % SODIUM CHLORIDE 1,000 ML IV ONE (01:41)
[2016-12-20] MEDS ORDERED: POTASSIUM CHLORIDE 40 MEQ in DEXTROSE 5% IN WATER 500 ML IV ONE (01:41)
[2016-12-20] MEDS ORDERED: NALOXONE HCL 0.4 MG/ML VIAL IV PRN (01:42)
[2016-12-20] MEDS ORDERED: IPRATROPIUM/ALBUTEROL 3 ML AMPUL.NEB NEB PRN (01:42)
[2016-12-20] MEDS ORDERED: LEVOFLOXACIN 750 MG/150 ML BAG IV SCH ×2 (01:45→17:00)
[2016-12-20] MEDS ORDERED: DEXTROSE 50% 50 ML VIAL IV PRN (01:51)
--- NOTE | 2016-12-20 02:02 | Internal Med History&Physical ---
Medical - H&P: HPI Patient information: Note initiated : 12/20/16 at 1:55 am Service Date, if different from initiated Date: [] Patient: Unique Spencer a 51 y/o F admitted on 12/19/16 for Shortness of breath, vomiting. Chief Complaint: [] History of present illness: Ms. Spencer is a 51 year old female with h/o asthma, DM, recent right TKA , presents to the hospital today with complaints of abdominal pain x 1 day. Nausea adn vomiting . The patient notes that she was ok until this AM, and then she has sudden onset abdominal pain, predominantly in the mid, and right abdominal region, diffuse, burining type, moving up, intermittent in nature. The pain lasts for 5-10 mins once it comes then subsides but does not go away. The patients pain is associated with significant nausea and vomiting. She denies any aggravating or releving factor for her pain. In the ER the patient has mild leucocytosis, and gievn her h/o recent SX she underwent a CTA chest which is neg for PE, but did show early pulmonary fibrosis vs infiltrate. Pt has no respiratory symptoms, The patient K was 3.2, X ray of Abdomen is negative. LFT neg, Pt has TKA done last month, and was taking narcotic pain medication for pain management. She had some constipation and she took 3 pills of OTC stool softeners to help her go and stopped the percoset which helped her a bit. Pt has s/p cholecystectomy, but still has her appendix. She does not report any urinary complaints. All systems: reviewed and no additional remarkable complaints except as stated ( as per HPI) Medical - H&P: PMH Medical history: HTN HLD DM Depression Obesity Surgical history: s/p TKA left leg S/p cholecystetomy Family history: reviewed and not pertinent Social history: denies smoking denies etoh denies recreational drugs. Medical - H&P: Meds Home Medications Medication Instructions Recorded Confirmed Type Citalopram [Celexa] 40 mg PO HS 12/08/16 12/19/16 History Ferrous Sulfate 325 mg PO BIDCC 12/08/16 12/19/16 History Glimepiride [Amaryl] 2 mg PO QAMAC 12/08/16 12/19/16 History Insulin Aspart [Novolog] 3 unit SQ TIDAC 12/08/16 12/19/16 History Levothyroxine Sodium [Synthroid] 137 mcg PO QAMAC 12/08/16 12/19/16 History Losartan [Cozaar] 6.25 mg PO HS 12/08/16 12/19/16 History Mirtazapine [Remeron] 45 mg PO HS 12/08/16 12/19/16 History Multivit,Ther Iron,Ca,FA & Min 1 tab PO DAILY 12/08/16 12/19/16 History [Multivitamin W/Minerals] Omeprazole [PriLOSEC] 20 mg PO ACB 12/08/16 12/19/16 History Pravastatin [Pravachol] 40 mg PO HS 12/08/16 12/19/16 History metFORMIN [Glucophage] 500 mg PO BIDCC 12/08/16 12/19/16 History traZODone HCL [Trazodone HCl] 50 mg PO HS 12/08/16 12/19/16 History oxyCODONE/APAP [Percocet 5-325 mg] 1 - 2 tab PO Q4HP PRN #60 tablet 12/15/1611/01 Rx Ondansetron HCl [Zofran ODT] 4 mg SL Q4-6HP PRN #14 tablet 12/19/16 Rx Allergies Allergy/AdvReac Type Severity Reaction Status Date / Time hydrocodone AdvReac Mild Itching Verified 12/19/16 18:05 codeine AdvReac Unknown Verified 12/19/16 18:05 ibuprofen [From Motrin] AdvReac Unknown Verified 12/19/16 18:05 lisinopril AdvReac Unknown Verified 12/19/16 18:05 quetiapine [From Seroquel] AdvReac Unknown Verified 12/19/16 18:05 Medical - H&P: Exam - Constitutional Vitals: Temp Pulse Resp BP Pulse Ox 97.9 F 67 18 147/81 95 12/19/16 22:56 12/19/16 22:56 12/19/16 22:56 12/19/16 22:56 12/19/16 22:56 Exam: GENERAL: The patient is a well-developed, well-nourished in no apparent distress. Is alert and oriented x3. VITAL SIGNS: Reviewed and as noted elsewhere. HEENT: Head is normocephalic and atraumatic. Extraocular muscles are intact. Pupils are equal, round, and reactive to light. Nares appeared normal. Mouth appears any without lesions. Mucous membranes are moist. NECK: Normal to inspection, Supple, No lymphadenopathy or thyromegaly. LUNGS: Air entry equal on both sides, no wheezing, crackles or rhonchi noted. No accessory muscles of respiration HEART: Regular rate and rhythm normal, S1 and S2 heard, no Gallop, S3 or Rub Noted, No Gross murmur heard. ABDOMEN: Soft, tender in the right lower quadrant, right upper quadrant. Positive bowel sounds but hypoactive. No hepatosplenomegaly was noted. EXTREMITIES: No cyanosis, clubbing, rash, lesions or edema. NEUROLOGIC: Cranial nerves II through XII are grossly intact. Motor and Sensory System Grossly Intact PSYCHIATRIC: Normal affect, Normal Mood. Appropriate Behavior. SKIN: No ulceration or wounds noted, No jaundice, No rash noted. Medical - H&P: Reslt - Labs CBC & Chem 7: 12/19/16 18:14 12/19/16 18:14 Medical - H&P: A/P - Narrative A/P Narrative: a/p Pneumonia: Noted on CT Scan,: Elevated wbc noted, Blood cultures, patients can sometimes have GI symptoms with atypical PNA, IV levofloxacin for now, monitor. Nausea vomiting diarrhea / Abdominal pain : Etiology? await Cdiff? due to PNA? given her tenderness, will get CT abdomen. IV fluids for the night and then once she is better hydrated will get CT in the AM. IV pepcid, IV zofran and phenergan for symptomatic control Hypokalemia: K 3.2. replace IV Dm: insluin with sliding scale HTN: BP stable, hold meds for now, monitor and resume once renal function is stable. HLD: continue statin DVT: hep sq Code: Full Diet. : DM/ Cardiac diet. Medical - H&P: Qual - VTE Deep Vein Thrombosis/Pulmonary Embolism Present on Admission: No
[2016-12-20] MEDS ORDERED: LEVOFLOXACIN 750 MG/150 ML BAG IV ONE (02:08)
[2016-12-20] MEDS ORDERED: FAMOTIDINE/PF 20 MG/2 ML VIAL IV ONE (02:09)
[2016-12-20] MEDS ORDERED: POTASSIUM CHLORIDE 20 MEQ/10 ML VIAL IV ONE (02:10)
[2016-12-20] MEDS: FAMOTIDINE/PF 20 MG/2 ML VIAL IV SCH ×3 (02:14→20:48)
[2016-12-20 02:19] LABS: Amylase 33 U/L (28-100); Lipase 16 U/L (7-60)
[2016-12-20] MEDS: PROMETHAZINE 25 MG/ML VIAL IV PRN ×2 (02:26→09:46)
[2016-12-20] MEDS: 0.9 % SODIUM CHLORIDE 1,000 ML IV SCH ×4 (03:54→20:16)
[2016-12-20] MEDS: 0.9 % SODIUM CHLORIDE 10 ML SYRINGE IV SCH ×3 (05:24→20:39)
[2016-12-20 07:17] LABS: Basophils # (Auto) 0 K/mcL (0.0-0.3); Basophils % (Auto) 0.2 % (0.0-2.0); Eosinophils # (Auto) 0 K/mcL (0.0-0.7); Eosinophils % (Auto) 0.4 % (0.0-7.0); Granulocytes % (Auto) 86.9 % (38.0-78.0); Lymphocytes # (Auto) 0.8 K/mcL (1.5-4.8); Lymphocytes % (Auto) 8.2 % (15.5-49.0); Mean Cell Volume 99.2 fL (80.0-100.0); Mean Corpuscular HGB Conc 34.5 g/dL (31.0-36.0); Mean Corpuscular Hemoglobin 34.2 pg (26.0-34.0); Monocytes # (Auto) 0.4 K/mcL (0.1-0.9); Monocytes % (Auto) 4.3 % (1.0-12.0); Platelet Count 213 K/mcL (140-440); RBC 3.09 M/mcL (4.00-5.20); Red Cell Distribution Width 13.1 % (11.5-14.5)
[2016-12-20 07:32] LABS: Estimated Average Glucose(eAG) 111 mg/dL; Hemoglobin A1C 5.5 % HGB (4.0-6.0)
[2016-12-20 07:48] LABS: ALT/SGPT 9 U/l (0-40); Albumin 3.3 gm/dL (3.2-5.2); Albumin/Globulin Ratio 1.1 (1.0-2.3); Alkaline Phosphatase 57 U/L (39-117); Bilirubin,Direct < 0.2 mg/dL (0.0-0.3); Blood Urea Nitrogen 5 mg/dl (6-20); Gamma Glutamyl Transpeptidase 19 U/L (5-36); Magnesium 1.4 mg/dL (1.6-2.5); Uric Acid 3.9 mg/dL (2.5-8.0)
[2016-12-20] MEDS: MULTIVIT,THER IRON,CA,FA & MIN 1 TABLET PO SCH (07:59)
[2016-12-20] MEDS: HEPARIN 5,000 UNIT/ML VIAL SQ SCH ×2 (08:10→20:38)
[2016-12-20] MEDS: LEVOTHYROXINE SODIUM 112 MCG TABLET PO SCH (08:10)
[2016-12-20] MEDS: LEVOTHYROXINE 25 MCG TABLET PO SCH (08:10)
[2016-12-20] MEDS: INSULIN LISPRO 1 UNIT/0.01 ML UNIT SQ SCH ×4 (08:28→20:30)
--- NOTE | 2016-12-20 09:27 | Ultrasound Report ---
CLINICAL INFORMATION: Five days status post knee replacement swelling. COMPARISON: None. TECHNIQUE: FINDINGS: The entire deep venous system including the common femoral, superficial femoral, popliteal and paired trifurcation calf veins are easily compressible and show normal venous blood flow on color and spectral Doppler. No evidence of thrombus IMPRESSION: No evidence of deep vein thrombosis. 6 cm fluid collection in the medial popliteal fossa is likely a postoperative seroma, Interpreted and Authenticated by: Benji Rojas 12/20/16
--- NOTE | 2016-12-20 11:02 | Cat Scan Report ---
CLINICAL INFORMATION: Abdominal pain COMPARISON: None. TECHNIQUE: Following enteric contrast, 80 cc of Isovue-300 were injected intravenously, and 60 seconds later, 2.5 mm helical slices were obtained from the mid heart through the subtrochanteric regions. Following reconstruction, 2.5 mm sagittal, coronal and axial reformatted images were processed and reviewed at bone, lung and soft tissue windows. Five minutes later, 5 mm helical slices were obtained from the mid heart through the kidneys and viewed at soft tissue windows. FINDINGS: Lung bases show minimal patchy groundglass airspace disease - more prominent on the right side. This is unchanged from a chest CT performed as one day prior. There are no effusions. The visualized heart is mildly enlarged. There is mild fibrofatty calcific plaque visualized coronary arteries. Images should the abdomen show the gallbladder is surgically absent. Intrahepatic and common bile duct are normal caliber: CBD is 5 mm. The liver, both kidneys, adrenal glands, spleen and pancreas are normal in size, configuration and attenuation a focal lesion. Aorta is normal in contour and caliber with scattered fibrofatty and calcific plaque. Celiac, SMA, KARI, renal and iliac arteries are widely patent Images through the pelvis show urinary bladder to be normal. Uterus is anteflexed and normal in size - 7.5 x 4 cm. A 4 mm submucosal fibroid is seen in the lower uterine segment. A 3 cm giant diverticulum projects in the superior possible transverse colon into the sumeet hepatis region. There is mild inflammation in the surrounding mesenteric fat compatible with focal diverticulitis. No abscess or other complication. The remaining colon, including the appendix, small bowel and stomach are normal. Bone windows show no seen osseous abnormality IMPRESSION: Giant (3 cm) inflamed diverticuli projecting from the proximal transverse colon. No evidence of abscess or other complication. Interpreted and Authenticated by: Benji Rojas 12/20/16
[2016-12-20] MEDS: CIPROFLOXACIN 400 MG/200 ML BAG IV SCH ×3 (12:45→20:22)
[2016-12-20] MEDS: metroNIDAZOLE 500 MG/100 ML BAG IV SCH ×2 (14:15→22:05)
[2016-12-20] MEDS: HYDROmorphone 2 MG/ML SYRINGE IV PRN ×2 (14:25→20:21)
--- NOTE | 2016-12-20 14:25 | General Surgery Consult Note ---
History of Present Illness Patient information: Note initiated : 12/20/16 at 2:23 pm Service Date, if different from initiated Date: [] Patient: Unique Spencer 51 y/o F admitted on 12/19/16 for Shortness of Breath, Vomiting/Gastroenteritis. Chief Complaint: [] Reason for consult: other (diverticulitis transverse colon) History of present illness: 51-year-old female who developed acute onset of nausea and vomiting about 12:30 yesterday she had emesis multiple times and states that the emesis turned brown. The pain became increasingly more severe and she was seen in the emergency room. Initially she was evaluated for possible PE but this was negative. CT of the abdomen revealed the large single transverse colon diverticulum measuring 3 cm with tissue edema around the diverticulum but no free air. She had diarrhea but she took for stool softeners immediately prior to having onset of symptoms. Her symptoms persist and she still has nausea and vomiting with by mouth intake. Her x-rays were reviewed with the radiologist and he feels that this is a transverse colon diverticulum with inflammation. There is no other pathology noted. Review of Systems - Constitutional fatigue, weakness, no weight loss - EENT Nose, mouth and throat: dry mouth, no abnormal hearing, no mouth lesions, no throat swelling - Cardiovascular palpatations, rapid heart rate, no chest pain at rest, no claudication, no irregular heart rhythm, no syncope - Respiratory other (shortness of breath), no pain on inspirtation, no chest congestion - Gastrointestinal abdominal pain, change in bowel habits, constipation, nausea, vomiting - Musculoskeletal abnormal gait, joint swelling, myalgias - Integumentary no bleeding lesions, no changing lesions, no pruritus, no rash - Neurological weakness, no abnormal hearing, no confusion, no disequilibrium, no dizziness, no headache(s), no numbness, no syncope - Psychiatric depression, no anxiety, no confusion, no paranoia - Endocrine fatigue, heat intolerance - Hematologic/Lymphatic no easy bleeding, no easy bruising, no lymphadenopathy - Allergic/Immunologic no tongue swelling, no throat swelling, no wheezing, no lip swelling Past History Past medical history: diabetes mellitus Hypertension Hypothyroidism Depression Asthma Past surgical history: right knee exploration and patella surgery Left total knee arthroplasty Cholecystectomy Past family history: mother age 71 with diabetes mellitus father and 2 siblings are alive and well Past social history: negative for tobacco Denies alcohol use Denies recreational drug use Medications and Allergies Home Medications Medication Instructions Recorded Confirmed Type Citalopram [Celexa] 40 mg PO HS 12/08/16 12/19/16 History Ferrous Sulfate 325 mg PO BIDCC 12/08/16 12/19/16 History Glimepiride [Amaryl] 2 mg PO QAMAC 12/08/16 12/19/16 History Insulin Aspart [Novolog] 3 unit SQ TIDAC 12/08/16 12/19/16 History Levothyroxine Sodium [Synthroid] 137 mcg PO QAMAC 12/08/16 12/19/16 History Losartan [Cozaar] 6.25 mg PO HS 12/08/16 12/19/16 History Mirtazapine [Remeron] 45 mg PO 12/08/16 12/19/16 History Multivit,Ther Iron,Ca,FA & Min 1 tab PO DAILY 12/08/16 12/19/16 History [Multivitamin W/Minerals] Omeprazole [PriLOSEC] 20 mg PO ACB 12/08/16 12/19/16 History Pravastatin [Pravachol] 40 mg PO 12/08/16 12/19/16 History metFORMIN [Glucophage] 500 mg PO BIDCC 12/08/16 12/19/16 History traZODone HCL [Trazodone HCl] 50 mg PO 12/08/16 12/19/16 History oxyCODONE/APAP [Percocet 5-325 mg] 1 - 2 tab PO Q4HP PRN #60 tablet 12/15/1611/01 Rx Ondansetron HCl [Zofran ODT] 4 mg SL Q4-6HP PRN #14 tablet 12/19/16 Rx Allergies Allergy/AdvReac Type Severity Reaction Status Date / Time hydrocodone AdvReac Mild Itching Verified 12/19/16 18:05 codeine AdvReac Unknown Verified 12/19/16 18:05 ibuprofen [From Motrin] AdvReac Unknown Verified 12/19/16 18:05 lisinopril AdvReac Unknown Verified 12/19/16 18:05 quetiapine [From Seroquel] AdvReac Unknown Verified 12/19/16 18:05 Exam Temp Pulse Resp BP Pulse Ox 98.1 F 66 18 145/86 96 12/20/16 11:59 06/05/17 03:55 12/20/16 11:59 12/20/16 11:59 12/20/16 11:59 - General physical appearance well developed, well nourished, moderate pain, obese - Eyes PERRL, normal ocular movement - ENT normal pinna, normal nares, normal mucosa, no hearing loss, no congestion - Head Head exam IM: Present: atraumatic, normocephalic - Neck no masses, no bruits, trachea midline, no lymphadectomy, no venous distension - Cardiovascular Cardiovascular exam IM: Present: normal rate and rhythm, +S1, +S2, systolic murmur. Absent: JVD Intensity IM: 08/23 - Respiratory normal expansion, normal respiratory effort, clear to percussion, clear to auscultation - Abdomen Abdomen: Present: soft, tender (obese, distended, diffuse tenderness with guarding; hypoactive bowel sounds), bowel sounds Hernia: Present: none - Genitourinary Present: normal external genitalia - Integumentary Present: no rash, no growths, no abnormal pigmentation - Neurologic Present: normal coordination, normal sensation - Musculoskeletal Present: normal gait, normal posture - Psychiatric Present: oriented to time, oriented to person, oriented to place, speech is normal, memory intact Results - Labs 12/20/16 05:20 12/20/16 05:20 Abnormal lab results 12/20/16 12/20/16 Range/Units 05:20 05:20 RBC 3.09 L (4.00-5.20) M/mcL Hgb 10.6 L (12.0-15.0) g/dL Hct 30.6 L (36.0-48.0) % MCH 34.2 H (26.0-34.0) pg Gran % 86.9 H (38.0-78.0) % Lymph % (Auto) 8.2 L (15.5-49.0) % Gran # 8.5 H (1.8-8.0) K/mcL Lymph # 0.8 L (1.5-4.8) K/mcL Carbon Dioxide 20 L (22-30) mmol/L BUN 5 L (6-20) mg/dl Creatinine 0.4 L (0.6-1.1) mg/dl Glucose 181 H (70-105) mg/dL Calcium 7.9 L (8.6-10.4) mg/dl Phosphorus 2.1 L (2.7-4.5) mg/dL Magnesium 1.4 L (1.6-2.5) mg/dL Lactate Dehydrogenase 279 H (94-250) U/L Diabetes panel 12/20/16 12/20/16 Range/Units 05:20 05:20 Sodium 138 (133-145) mmol/L Potassium 3.7 (3.3-5.1) mmol/L Chloride 102 (96-108) mmol/L Carbon Dioxide 20 L (22-30) mmol/L BUN 5 L (6-20) mg/dl Creatinine 0.4 L (0.6-1.1) mg/dl Glucose 181 H (70-105) mg/dL Hemoglobin A1c 5.5 (4.0-6.0) % HGB Calcium 7.9 L (8.6-10.4) mg/dl AST 15 (0-37) U/l ALT 9 (0-40) U/l Alkaline Phosphatase 57 (39-117) U/L Total Protein 6.3 (5.9-8.4) gm/dL Albumin 3.3 (3.2-5.2) gm/dL Triglycerides 108 (<150) mg/dl Calcium panel 12/20/16 Range/Units 05:20 Calcium 7.9 L (8.6-10.4) mg/dl Phosphorus 2.1 L (2.7-4.5) mg/dL Albumin 3.3 (3.2-5.2) gm/dL Pituitary panel 12/20/16 Range/Units 05:20 Sodium 138 (133-145) mmol/L Potassium 3.7 (3.3-5.1) mmol/L Chloride 102 (96-108) mmol/L Carbon Dioxide 20 L (22-30) mmol/L BUN 5 L (6-20) mg/dl Creatinine 0.4 L (0.6-1.1) mg/dl Glucose 181 H (70-105) mg/dL Calcium 7.9 L (8.6-10.4) mg/dl Adrenal panel 12/20/16 Range/Units 05:20 Sodium 138 (133-145) mmol/L Potassium 3.7 (3.3-5.1) mmol/L Chloride 102 (96-108) mmol/L Carbon Dioxide 20 L (22-30) mmol/L BUN 5 L (6-20) mg/dl Creatinine 0.4 L (0.6-1.1) mg/dl Glucose 181 H (70-105) mg/dL Calcium 7.9 L (8.6-10.4) mg/dl Total Bilirubin 0.7 (0.0-1.0) mg/dL AST 15 (0-37) U/l ALT 9 (0-40) U/l Alkaline Phosphatase 57 (39-117) U/L Total Protein 6.3 (5.9-8.4) gm/dL Albumin 3.3 (3.2-5.2) gm/dL All other labs normal. Assessment and Plan (1) Diverticulitis large intestine patient will be treated with IV antibiotics. Because of the size of the diverticulum if she does not respond in 72 hours she should have follow-up CT to determine if sheeeds to have operative therapy. It is anticipated that she will respond to treatment Status: Acute (2) Diabetes mellitus Status: Acute Qualifiers: Diabetes mellitus type: type 2 Diabetes mellitus complication status: without complication Diabetes mellitus penitentiary insulin use: without penitentiary use Qualified Code(s): E11.9 - Type 2 diabetes mellitus without complications (3) Hypertension Status: Acute Qualifiers: Hypertension type: essential hypertension Qualified Code(s): I10 - Essential (primary) hypertension (4) Depression Status: Acute
[2016-12-20] MEDS ORDERED: MAGNESIUM SULFATE 2 GM/50 ML BAG IV ONE (19:15)
[2016-12-20] MEDS: SIMVASTATIN 20 MG TABLET PO SCH (20:17)
[2016-12-20] MEDS: MIRTAZAPINE 15 MG TABLET PO SCH (20:17)
[2016-12-20] MEDS ORDERED: CITALOPRAM 20 MG TABLET PO SCH ×2 (21:00)
[2016-12-21] MEDS: HYDROmorphone 2 MG/ML SYRINGE IV PRN ×3 (01:05→17:18)
[2016-12-21] MEDS: PROMETHAZINE 25 MG/ML VIAL IV PRN ×2 (01:05→21:45)
[2016-12-21] MEDS: 0.9 % SODIUM CHLORIDE 1,000 ML IV SCH ×5 (04:02→19:45)
[2016-12-21] MEDS: metroNIDAZOLE 500 MG/100 ML BAG IV SCH ×4 (05:17→21:56)
[2016-12-21] MEDS: 0.9 % SODIUM CHLORIDE 10 ML SYRINGE IV SCH ×3 (05:29→20:33)
[2016-12-21 06:21] LABS: Basophils # (Auto) 0 K/mcL (0.0-0.3); Basophils % (Auto) 0.3 % (0.0-2.0); Eosinophils # (Auto) 0 K/mcL (0.0-0.7); Eosinophils % (Auto) 0.3 % (0.0-7.0); Granulocytes % (Auto) 63.8 % (38.0-78.0); Lymphocytes # (Auto) 2.9 K/mcL (1.5-4.8); Mean Cell Volume 100.2 fL (80.0-100.0); Mean Corpuscular HGB Conc 34.2 g/dL (31.0-36.0); Mean Corpuscular Hemoglobin 34.3 pg (26.0-34.0); Monocytes # (Auto) 0.8 K/mcL (0.1-0.9); Monocytes % (Auto) 7.6 % (1.0-12.0); Platelet Count 228 K/mcL (140-440); RBC 2.83 M/mcL (4.00-5.20); Red Cell Distribution Width 13.4 % (11.5-14.5)
[2016-12-21 06:45] LABS: ALT/SGPT 9 U/l (0-40); Albumin/Globulin Ratio 1.1 (1.0-2.3); Alkaline Phosphatase 51 U/L (39-117); Bilirubin,Direct < 0.2 mg/dL (0.0-0.3); Blood Urea Nitrogen 6 mg/dl (6-20); Gamma Glutamyl Transpeptidase 19 U/L (5-36); Magnesium 2.1 mg/dL (1.6-2.5)
[2016-12-21] MEDS: INSULIN LISPRO 1 UNIT/0.01 ML UNIT SQ SCH ×4 (06:53→20:24)
[2016-12-21] MEDS: LEVOTHYROXINE SODIUM 112 MCG TABLET PO SCH (07:16)
[2016-12-21] MEDS: LEVOTHYROXINE 25 MCG TABLET PO SCH (07:16)
[2016-12-21] MEDS ORDERED: POTASSIUM PHOSPHATE 20 MEQ in DEXTROSE 5% IN WATER 250 ML IV ONE (08:30)
[2016-12-21] MEDS: FAMOTIDINE/PF 20 MG/2 ML VIAL IV SCH ×2 (08:47→20:21)
[2016-12-21] MEDS: HEPARIN 5,000 UNIT/ML VIAL SQ SCH ×2 (08:47→20:21)
[2016-12-21] MEDS: MULTIVIT,THER IRON,CA,FA & MIN 1 TABLET PO SCH ×2 (08:47→08:48)
[2016-12-21] MEDS: CIPROFLOXACIN 400 MG/200 ML BAG IV SCH ×2 (08:47→20:33)
--- NOTE | 2016-12-21 13:06 | General Surgery Progress Note ---
Subjective Patient reports: feels better, still having pain, pain is less, flatus, no bowel movement, afebrile Narrative: Note initiated : 12/21/16 at 1:04 pm Service Date, if different from initiated Date: [] Patient: Unique Spencer 51 y/o F admitted on 12/20/16 for Shortness of Breath, Vomiting/Gastroenteritis, PNA. Chief Complaint: [patient feels better. She is bloated but she has less pain. She denies nausea and complains of mild hunger. She has had flatus but no bowel movement as yet. She remains afebrile and her leukocytosis has resolved] Objective Temp Pulse Resp BP Pulse Ox 98.1 F 60 20 119/72 95 12/21/16 12:00 12/21/16 12:00 12/21/16 12:00 12/21/16 12:00 12/21/16 12:00 - Additional Data Intake & Output - Last 24 hours: Intake & Output 12/19/16 12/20/16 12/21/16 12/22/16 05:59 05:59 05:59 05:59 Intake Total 1350 / 2650 Output Total 175 / 195 550 / 550 Balance 1175 / 2455 -550 / -550 Weight 175 lb - General physical appearance no distress, moderate pain - Eyes PERRL - ENT no congestion - Neck no venous distension - Respiratory clear to auscultation - Cardiovascular Cardiovascular exam: Present: normal rate and rhythm, RRR, +S1, +S2. Absent: JVD - Abdomen soft, tender, distended (moderate distention but less than on yesterday; tenderness in the midepigastrium but no guarding;very good active bowel sounds) - Integumentary no rash, no growths, no abnormal pigmentation - Neurologic normal coordination, normal sensation - Musculoskeletal normal gait, normal posture - Psychiatric oriented to time, oriented to person, oriented to place, speech is normal, memory intact - Labs 12/21/16 04:58 12/21/16 04:57 Diabetes panel 12/21/16 Range/Units 04:57 Sodium 140 (133-145) mmol/L Potassium 3.4 (3.3-5.1) mmol/L Chloride 106 (96-108) mmol/L Carbon Dioxide 21 L (22-30) mmol/L BUN 6 (6-20) mg/dl Creatinine 0.5 L (0.6-1.1) mg/dl Glucose 100 (70-105) mg/dL Calcium 7.7 L (8.6-10.4) mg/dl AST 18 (0-37) U/l ALT 9 (0-40) U/l Alkaline Phosphatase 51 (39-117) U/L Total Protein 5.8 L (5.9-8.4) gm/dL Albumin 3.0 L (3.2-5.2) gm/dL Triglycerides 159 H (<150) mg/dl Calcium panel 12/21/16 Range/Units 04:57 Calcium 7.7 L (8.6-10.4) mg/dl Phosphorus 1.8 L (2.7-4.5) mg/dL Albumin 3.0 L (3.2-5.2) gm/dL Pituitary panel 12/21/16 Range/Units 04:57 Sodium 140 (133-145) mmol/L Potassium 3.4 (3.3-5.1) mmol/L Chloride 106 (96-108) mmol/L Carbon Dioxide 21 L (22-30) mmol/L BUN 6 (6-20) mg/dl Creatinine 0.5 L (0.6-1.1) mg/dl Glucose 100 (70-105) mg/dL Calcium 7.7 L (8.6-10.4) mg/dl Adrenal panel 12/21/16 Range/Units 04:57 Sodium 140 (133-145) mmol/L Potassium 3.4 (3.3-5.1) mmol/L Chloride 106 (96-108) mmol/L Carbon Dioxide 21 L (22-30) mmol/L BUN 6 (6-20) mg/dl Creatinine 0.5 L (0.6-1.1) mg/dl Glucose 100 (70-105) mg/dL Calcium 7.7 L (8.6-10.4) mg/dl Total Bilirubin 0.7 (0.0-1.0) mg/dL AST 18 (0-37) U/l ALT 9 (0-40) U/l Alkaline Phosphatase 51 (39-117) U/L Total Protein 5.8 L (5.9-8.4) gm/dL Albumin 3.0 L (3.2-5.2) gm/dL Assessment and Plan (1) Diverticulitis large intestine Status: Acute Assessment and plan: patient is clinically improved; we'll continue present therapy and will allow her to have clear liquids. She is advised that if she should develop nausea that she is to discontinue the liquids. We'll schedule CT of the abdomen and pelvis for Tuesday. Current Visit: Yes (2) Diabetes mellitus Status: Acute Current Visit: Yes (3) Hypertension Status: Acute Current Visit: Yes (4) Depression Status: Acute Current Visit: Yes - Time Spent With Patient Total time spent is greater than 50% in coordination of care (as documented) at patient's floor/unit and/or counseling patient:
--- NOTE | 2016-12-21 14:45 | Internal Med Progress Note ---
Medical - PN: Subj Patient information: Note initiated : 12/21/16 at 2:43 pm Service Date, if different from initiated Date: [] Patient: Unique Spencer a 51 y/o F admitted on 12/20/16 for Shortness of Breath, Vomiting/Gastroenteritis, PNA. Chief Complaint: [] Interval history: Ms. Spencer is a 51 year old female with h/o asthma, DM, recent right TKA , presents to the hospital today with complaints of abdominal pain x 1 day. Nausea adn vomiting . The patient notes that she was ok until this AM, and then she has sudden onset abdominal pain, predominantly in the mid, and right abdominal region, diffuse, burning type, moving up, intermittent in nature. The pain lasts for 5-10 mins once it comes then subsides but does not go away. The patients pain is associated with significant nausea and vomiting. She denies any aggravating or releving factor for her pain. In the ER the patient has mild leucocytosis, and gievn her h/o recent SX she underwent a CTA chest which is neg for PE, but did show early pulmonary fibrosis vs infiltrate. Pt has no respiratory symptoms, The patient K was 3.2, X ray of Abdomen is negative. LFT neg, Pt has TKA done last month, and was taking narcotic pain medication for pain management. She had some constipation and she took 3 pills of OTC stool softeners to help her go and stopped the percoset which helped her a bit. Pt has s/p cholecystectomy, but still has her appendix. She does not report any urinary complaints. / Pt seen examined, had CT Abdomen done yesterday, noted to have large diverticulium with diverticulitis, Gen surg consulted, advised IV ABX and close monitoring. Appreciate consult. Patient reports that the lung findings she has are chronic and she has had a lung biopsy for same. Pt is now on cipro and flagyl for Abdominal source. Plan is for CT scan abdo and pelvis on Tuesday to evaluate the diverticulitis. She is still nauseas, but pain is better. No vomiting. Pertinent ROS: Denies headache, dizziness Denies chest pain, palpitations Denies cough or shortness of breath Present abdominal pain, and nausea no vomiting. - Constitutional Vitals: Vital Signs Temp Pulse Resp BP Pulse Ox 98.1 F 60 20 119/72 95 12/21/16 12:00 12/21/16 12:00 12/21/16 12:00 12/21/16 12:00 12/21/16 12:00 Period Temp Pulse Resp BP Sys/Mcdonough Pulse Ox Last 24 Hr 97.8 F-98.4 F 60-70 16-20 105-125/68-78 92-95 Intake and Output 12/21/16 12/21/16 12/21/16 05:59 13:59 21:59 Intake Total 1150 / 1150 Output Total 175 / 175 550 / 550 Balance 975 / 975 -550 / -550 Intake & Output: Intake & Output 12/21/16 12/21/16 12/21/16 05:59 13:59 21:59 Intake Total 1150 / 1150 Output Total 175 / 175 550 / 550 Balance 975 / 975 -550 / -550 Intake: IV 1100 / 1100 Sodium Chloride 0.9% 1, 1000 / 1000 000 ml @ 125 mls/hr IV . Q8H [facility] Rx#:[id number] Oral 50 / 50 Output: Void Amount 175 / 175 550 / 550 Other: # Voids 1 Exam: Constitutional; Afebrile, cooperative, alert, not in distress. Eyes- No icterus, , No periorbital swelling Ears- Ext ear normal, hearing normal to conversation. Neck- Midline trachea, supple Respiratory system: Air Entry equal on both sides, No crackles or wheezing, no rhonchi. CVS- Rate rhythm regular, S1,S2 heard, no gallop, no rub. Abdomen- Soft nontender abdomen, but distended, hypoactive BS, patient layboy tender on the rigth side of abdomen. 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 Medical - PN: Obj Da - Labs CBC & Chem 7: 12/21/16 04:58 12/21/16 04:57 Labs: Abnormal Lab Results 12/21/16 12/21/16 04:58 04:57 RBC 2.83 L Hgb 9.7 L Hct 28.3 L MCV 100.2 H MCH 34.3 H Carbon Dioxide 21 L Creatinine 0.5 L Calcium 7.7 L Phosphorus 1.8 L Lactate Dehydrogenase 289 H Total Protein 5.8 L Albumin 3.0 L Triglycerides 159 H Meds: Medications Albuterol/Ipratropium (Duoneb) 3 ml NEB Q4HRT PRN PRN Reason: Shortness Of Breath Or Wheezing Dextrose (Dextrose 50%) 0 ml IV UD PRN PRN Reason: Hypoglycemia Diagnostic Test (Pha) (Accu-Chek) 1 each FS ACHS [facility] Last Admin: 12/21/16 11:09 Dose: 1 each Famotidine (Pepcid) 20 mg IV Q12 [facility] Last Admin: 12/21/16 08:47 Dose: 20 mg Heparin Sodium (Porcine) (Heparin) 5,000 unit SQ Q12 [facility] Last Admin: 12/21/16 08:47 Dose: 5,000 unit Hydromorphone HCl (Dilaudid) 0.5 mg IV Q2HP PRN PRN Reason: Pain Last Admin: 12/21/16 09:07 Dose: 0.5 mg Sodium Chloride (Sodium Chloride 0.9%) 1,000 mls @ 125 mls/hr IV .Q8H [facility] Last Admin: 12/21/16 09:51 Dose: Not Given Metronidazole (Flagyl) 500 mg in 100 mls @ 100 mls/hr IV Q8H [facility] Last Admin: 12/21/16 14:35 Dose: 100 mls/hr Ciprofloxacin (Cipro) 400 mg in 200 mls @ 200 mls/hr IV Q12H [facility] Insulin Human Lispro (Humalog) 0 unit SQ [facility] PRN Reason: Protocol Last Admin: 12/21/16 11:18 Dose: 1 unit Iron Carb/Multivit/Shirt Presser/Folic Acid (Multivitamin W/Minerals) 1 tab PO DAILY [facility] Last Admin: 12/21/16 08:48 Dose: Not Given Levothyroxine Sodium (Synthroid) 112 mcg PO QAMAC [facility] Last Admin: 12/21/16 07:16 Dose: 112 mcg Levothyroxine Sodium (Synthroid) 25 mcg PO QAMAC [facility] Last Admin: 12/21/16 07:16 Dose: 25 mcg Mirtazapine (Remeron) 45 mg PO HS [facility] Last Admin: 12/20/16 20:17 Dose: Not Given Naloxone HCl (Narcan) 0.1 mg IV Q2MIN PRN PRN Reason: Opiate Reversal Promethazine HCl (Phenergan) 12.5 mg IV Q6HP PRN PRN Reason: Nausea And Vomiting Last Admin: 12/21/16 01:05 Dose: 12.5 mg Simvastatin (Zocor) 20 mg PO HS [facility] Last Admin: 12/20/16 20:17 Dose: Not Given Sodium Chloride (Saline Flush) 10 ml IV Q8 [facility] Last Admin: 12/21/16 14:12 Dose: Not Given Medical - PN: A/P - Time Spent With Patient Total time spent is greater than 50% in coordination of care (as documented) at patient's floor/unit and/or counseling patient: - Narrative A/P Narrative: a/p Pneumonia: Noted on CT Scan,: Given h/o lung fibrosis and past history of bx, I think pts symptoms are more likely GI and not PNA Nausea vomiting improved Diverticulitis: IV cipro and flagyl, Appreciate Gen Surg consult, resume liquid diet, CT abdo on tuesday. Hypokalemia: back to normal Dm: insulin with sliding scale HTN: BP stable, monitor. meds on hold HLD: continue statin DVT: hep sq Code: Full Diet. : clear liquid diet. Medical - PN: Qual - VTE Deep Vein Thrombosis/Pulmonary Embolism Present on Admission: No
[2016-12-21] MEDS: MIRTAZAPINE 15 MG TABLET PO SCH (20:30)
[2016-12-21] MEDS: SIMVASTATIN 20 MG TABLET PO SCH (20:30)
[2016-12-21] MEDS ORDERED: METOCLOPRAMIDE 10 MG/2 ML VIAL ONE (22:30)
[2016-12-22] MEDS: METOCLOPRAMIDE 10 MG/2 ML VIAL IV SCH ×5 (02:19→23:40)
[2016-12-22] MEDS: 0.9 % SODIUM CHLORIDE 1,000 ML IV SCH ×3 (05:11→16:57)
[2016-12-22] MEDS: 0.9 % SODIUM CHLORIDE 10 ML SYRINGE IV SCH ×3 (05:11→21:32)
[2016-12-22] MEDS: metroNIDAZOLE 500 MG/100 ML BAG IV SCH ×3 (05:13→22:38)
[2016-12-22 05:18] LABS: Basophils # (Auto) 0 K/mcL (0.0-0.3); Basophils % (Auto) 0 % (0.0-2.0); Eosinophils # (Auto) 0.1 K/mcL (0.0-0.7); Eosinophils % (Auto) 0.4 % (0.0-7.0); Granulocytes % (Auto) 91.5 % (38.0-78.0); Lymphocytes # (Auto) 0.7 K/mcL (1.5-4.8); Lymphocytes % (Auto) 5.7 % (15.5-49.0); Mean Cell Volume 98.9 fL (80.0-100.0); Mean Corpuscular HGB Conc 34.3 g/dL (31.0-36.0); Mean Corpuscular Hemoglobin 33.9 pg (26.0-34.0); Monocytes # (Auto) 0.3 K/mcL (0.1-0.9); Monocytes % (Auto) 2.4 % (1.0-12.0); Platelet Count 281 K/mcL (140-440); RBC 3.42 M/mcL (4.00-5.20); Red Cell Distribution Width 13.1 % (11.5-14.5)
[2016-12-22 05:33] LABS: ALT/SGPT 15 U/l (0-40); Albumin 3.5 gm/dL (3.2-5.2); Alkaline Phosphatase 75 U/L (39-117); Bilirubin,Direct 0.5 mg/dL (0.0-0.3); Blood Urea Nitrogen 4 mg/dl (6-20); Gamma Glutamyl Transpeptidase 34 U/L (5-36); Magnesium 1.7 mg/dL (1.6-2.5); Uric Acid 4.2 mg/dL (2.5-8.0)
[2016-12-22] MEDS ORDERED: METOCLOPRAMIDE 10 MG/2 ML VIAL ONE (06:02)
[2016-12-22] MEDS: LEVOTHYROXINE SODIUM 112 MCG TABLET PO SCH (07:05)
[2016-12-22] MEDS: LEVOTHYROXINE 25 MCG TABLET PO SCH (07:05)
[2016-12-22] MEDS: INSULIN LISPRO 1 UNIT/0.01 ML UNIT SQ SCH ×4 (07:24→21:30)
[2016-12-22] MEDS ORDERED: MAGNESIUM SULFATE 2 GM/50 ML BAG IV ONE (08:09)
[2016-12-22] MEDS: HEPARIN 5,000 UNIT/ML VIAL SQ SCH ×2 (08:40→21:28)
[2016-12-22] MEDS: FAMOTIDINE/PF 20 MG/2 ML VIAL IV SCH ×2 (08:40→21:28)
[2016-12-22] MEDS: MULTIVIT,THER IRON,CA,FA & MIN 1 TABLET PO SCH (08:40)
[2016-12-22] MEDS ORDERED: IOPAMIDOL 100 ML BOTTLE IJ ONE (08:59)
[2016-12-22] MEDS: CIPROFLOXACIN 400 MG/200 ML BAG IV SCH ×2 (09:12→21:22)
--- NOTE | 2016-12-22 12:39 | Internal Med Progress Note ---
Medical - PN: Subj Patient information: Note initiated : 12/22/16 at 12:36 pm Service Date, if different from initiated Date: [] Patient: Unique Spencer a 51 y/o F admitted on 12/20/16 for Shortness of Breath, Vomiting/Gastroenteritis, PNA. Chief Complaint: [] Interval history: Ms. Spencer is a 51 year old female with h/o asthma, DM, recent right TKA , presents to the hospital today with complaints of abdominal pain x 1 day. Nausea adn vomiting . The patient notes that she was ok until this AM, and then she has sudden onset abdominal pain, predominantly in the mid, and right abdominal region, diffuse, burning type, moving up, intermittent in nature. The pain lasts for 5-10 mins once it comes then subsides but does not go away. The patients pain is associated with significant nausea and vomiting. She denies any aggravating or releving factor for her pain. In the ER the patient has mild leucocytosis, and gievn her h/o recent SX she underwent a CTA chest which is neg for PE, but did show early pulmonary fibrosis vs infiltrate. Pt has no respiratory symptoms, The patient K was 3.2, X ray of Abdomen is negative. LFT neg, Pt has TKA done last month, and was taking narcotic pain medication for pain management. She had some constipation and she took 3 pills of OTC stool softeners to help her go and stopped the percoset which helped her a bit. Pt has s/p cholecystectomy, but still has her appendix. She does not report any urinary complaints. / Pt seen examined, had CT Abdomen done yesterday, noted to have large diverticulium with diverticulitis, Gen surg consulted, advised IV ABX and close monitoring. Appreciate consult. Patient reports that the lung findings she has are chronic and she has had a lung biopsy for same. Pt is now on cipro and flagyl for Abdominal source. Plan is for CT scan abdo and pelvis on Tuesday to evaluate the diverticulitis. She is still nauseas, but pain is better. No vomiting. 12/22 Pt seen examined, pt was drowsy last night needing oxygen, etiology? drug related vs infection. WBC count is up today, CT scan abdomen done, read pending. Patient this AM still has nausea, abdmoinal pain is better. She still has loose stools. Pertinent ROS: Denies headache, dizziness Denies chest pain, palpitations Denies cough or shortness of breath Present abdominal pain, nausea no vomiting. - Constitutional Vitals: Vital Signs Temp Pulse Resp BP Pulse Ox 97.7 F 69 18 157/81 95 12/22/16 11:23 12/22/16 07:13 12/22/16 11:23 12/22/16 11:23 12/22/16 11:23 Period Temp Pulse Resp BP Sys/Mcdonough Pulse Ox Last 24 Hr 96.9 F-98.2 F 60-71 12-20 110-171/66-88 94-98 Intake and Output 12/21/16 12/22/16 12/22/16 21:59 05:59 13:59 Intake Total 500 / 500 1200 / 1200 600 / 600 Output Total 850 / 850 2300 / 2300 1500 / 1500 Balance -350 / -350 -1100 / -1100 -900 / -900 Weight 175 lb 8 oz Intake & Output: Intake & Output 12/21/16 12/22/16 12/22/16 21:59 05:59 13:59 Intake Total 500 / 500 1200 / 1200 600 / 600 Output Total 850 / 850 2300 / 2300 1500 / 1500 Balance -350 / -350 -1100 / -1100 -900 / -900 Weight 175 lb 8 oz Intake: IV 300 / 300 1100 / 1100 Sodium Chloride 0.9% 1, 1000 / 1000 000 ml @ 125 mls/hr IV . Q8H [facility] Rx#:[id number] Oral 200 / 200 100 / 100 600 / 600 Output: Void Amount 550 / 550 2300 / 2300 1300 / 1300 Urine/Stool Mix 300 / 300 200 / 200 Other: # Voids 1 1 # Bowel Movements 1 Exam: Constitutional; Afebrile, cooperative, alert, not in distress. Eyes- No icterus, , No periorbital swelling Ears- Ext ear normal, hearing normal to conversation. Neck- Midline trachea, supple Respiratory system: Air Entry equal on both sides, No crackles or wheezing, no rhonchi. CVS- Rate rhythm regular, S1,S2 heard, no gallop, no rub. Abdomen- Soft abdomen, distention improved, tenderness improved. 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 Medical - PN: Obj Da - Labs CBC & Chem 7: 12/22/16 04:10 12/22/16 04:10 Labs: Abnormal Lab Results 12/22/16 12/22/16 12/21/16 04:10 04:10 04:58 WBC 13.0 H RBC 3.42 L 2.83 L Hgb 11.6 L 9.7 L Hct 33.9 L 28.3 L MCV 100.2 H MCH 34.3 H Gran % 91.5 H Lymph % (Auto) 5.7 L Gran # 11.9 H Lymph # 0.7 L Carbon Dioxide 18 L Anion Gap 19.0 H BUN 4 L Creatinine 0.5 L Glucose 188 H Calcium 8.3 L Phosphorus 2.2 L Total Bilirubin 1.4 H Direct Bilirubin 0.5 H Lactate Dehydrogenase 367 H Total Protein Albumin Triglycerides 168 H 12/21/16 04:57 WBC RBC Hgb Hct MCV MCH Gran % Lymph % (Auto) Gran # Lymph # Carbon Dioxide 21 L Anion Gap BUN Creatinine 0.5 L Glucose Calcium 7.7 L Phosphorus 1.8 L Total Bilirubin Direct Bilirubin Lactate Dehydrogenase 289 H Total Protein 5.8 L Albumin 3.0 L Triglycerides 159 H Meds: Medications Albuterol/Ipratropium (Duoneb) 3 ml NEB Q4HRT PRN PRN Reason: Shortness Of Breath Or Wheezing Dextrose (Dextrose 50%) 0 ml IV UD PRN PRN Reason: Hypoglycemia Diagnostic Test (Pha) (Accu-Chek) 1 each FS ACHS [facility] Last Admin: 12/22/16 11:20 Dose: 1 each Famotidine (Pepcid) 20 mg IV Q12 [facility] Last Admin: 12/22/16 08:40 Dose: 20 mg Heparin Sodium (Porcine) (Heparin) 5,000 unit SQ Q12 [facility] Last Admin: 12/22/16 08:40 Dose: 5,000 unit Sodium Chloride (Sodium Chloride 0.9%) 1,000 mls @ 125 mls/hr IV .Q8H [facility] Last Admin: 12/22/16 09:17 Dose: Not Given Metronidazole (Flagyl) 500 mg in 100 mls @ 100 mls/hr IV Q8H [facility] Last Admin: 12/22/16 05:13 Dose: 100 mls/hr Ciprofloxacin (Cipro) 400 mg in 200 mls @ 200 mls/hr IV Q12H [facility] Last Admin: 12/22/16 09:12 Dose: 200 mls/hr Insulin Human Lispro (Humalog) 0 unit SQ ACHS [facility] PRN Reason: Protocol Last Admin: 12/22/16 11:30 Dose: 1 unit Iron Carb/Multivit/[place]/Folic Acid (Multivitamin W/Minerals) 1 tab PO DAILY [facility] Last Admin: 12/22/16 08:40 Dose: 1 tab Levothyroxine Sodium (Synthroid) 112 mcg PO QAMAC [facility] Last Admin: 12/22/16 07:05 Dose: 112 mcg Levothyroxine Sodium (Synthroid) 25 mcg PO QAMAC [facility] Last Admin: 12/22/16 07:05 Dose: 25 mcg Metoclopramide HCl (Reglan) 10 mg IV Q6 [facility] Last Admin: 12/22/16 11:30 Dose: 10 mg Mirtazapine (Remeron) 45 mg PO [facility] Last Admin: 12/21/16 20:30 Dose: 45 mg Morphine Sulfate (Morphine) 1 - 2 mg IV Q3HP PRN PRN Reason: Pain Naloxone HCl (Narcan) 0.1 mg IV Q2MIN PRN PRN Reason: Opiate Reversal Promethazine HCl (Phenergan) 12.5 mg IV Q6HP PRN PRN Reason: Nausea And Vomiting Last Admin: 12/21/16 21:45 Dose: 12.5 mg Simvastatin (Zocor) 20 mg PO [facility] Last Admin: 12/21/16 20:30 Dose: 20 mg Sodium Chloride (Saline Flush) 10 ml IV Q8 [facility] Last Admin: 12/22/16 05:11 Dose: 10 ml Medical - PN: A/P - Time Spent With Patient Total time spent is greater than 50% in coordination of care (as documented) at patient's floor/unit and/or counseling patient: - Narrative A/P Narrative: a/p Pneumonia: Noted on CT Scan,: Given h/o lung fibrosis and past history of bx, I think pts symptoms are more likely GI and not PNA Nausea vomiting improved, AMS last night, change dilaudid to morphine, hold phenergan and pt now using reglan. Diverticulitis: IV cipro and flagyl, Appreciate Gen Surg consult, resume liquid diet, CT abdo today, results pending, WBC up today. Hypokalemia: back to normal Dm: insulin with sliding scale HTN: BP stable, monitor. meds on hold HLD: continue statin DVT: hep sq Code: Full Diet. : clear liquid diet. Medical - PN: Qual - VTE Deep Vein Thrombosis/Pulmonary Embolism Present on Admission: No
--- NOTE | 2016-12-22 15:45 | General Surgery Progress Note ---
Subjective Patient reports: feels better, pain is less, flatus, bowel movement, nausea, vomiting, afebrile Narrative: Note initiated : 12/22/16 at 3:26 pm Service Date, if different from initiated Date: Patient: Unique Spencer 51 y/o F admitted on 12/20/16 for Shortness of Breath, Vomiting/Gastroenteritis, PNA. Chief Complaint: Mrs. Spencer is feeling much better however she continues to have right upper quadrant pain. She had nausea and vomiting last evening. CT scan of the abdomen does not show the same degree of inflammation that she had 2 days ago. The diverticulum is actually not easily recognizable on her present study. This was discussed with the radiologist and he cannot explain the fact that the degree of inflammation has improved and her symptoms have actually slightly worsened. Will give a trial of clear liquids. Her progress will be based on her response to oral intake. If she develops nausea and vomiting she will need to have an upper endoscopy. Objective Temp Pulse Resp BP Pulse Ox 97.7 F 69 18 157/81 95 12/22/16 11:23 12/22/16 07:13 12/22/16 11:23 12/22/16 11:23 12/22/16 11:23 - Additional Data Intake & Output - Last 24 hours: Intake & Output 12/20/16 12/21/16 12/22/16 12/23/16 05:59 05:59 05:59 05:59 Intake Total 1350 / 2650 2700 / 2700 700 / 700 Output Total 175 / 195 3700 / 3700 1800 / 1800 Balance 1175 / 2455 -1000 / -1000 -1100 / -1100 Weight 175 lb 175 lb 8 oz 175 lb 8 oz - General physical appearance no distress, no pain - Eyes PERRL - ENT no congestion - Neck no venous distension - Respiratory clear to auscultation - Cardiovascular Cardiovascular exam: Present: normal rate and rhythm, RRR, +S1, +S2. Absent: JVD - Abdomen soft, non tender, bowel sounds, distended (Abdomen is mildly distended but soft. She has good active bowel sounds. There is some minimal tenderness in the right upper quadrant.) - Neurologic normal coordination, normal sensation - Musculoskeletal normal gait, normal posture - Psychiatric oriented to time, oriented to person, oriented to place, speech is normal, memory intact - Labs 12/22/16 04:10 12/22/16 04:10 Diabetes panel 12/22/16 Range/Units 04:10 Sodium 135 (133-145) mmol/L Potassium 3.5 (3.3-5.1) mmol/L Chloride 98 (96-108) mmol/L Carbon Dioxide 18 L (22-30) mmol/L BUN 4 L (6-20) mg/dl Creatinine 0.5 L (0.6-1.1) mg/dl Glucose 188 H (70-105) mg/dL Calcium 8.3 L (8.6-10.4) mg/dl AST 25 (0-37) U/l ALT 15 (0-40) U/l Alkaline Phosphatase 75 (39-117) U/L Total Protein 7.0 (5.9-8.4) gm/dL Albumin 3.5 (3.2-5.2) gm/dL Triglycerides 168 H (<150) mg/dl Calcium panel 12/22/16 Range/Units 04:10 Calcium 8.3 L (8.6-10.4) mg/dl Phosphorus 2.2 L (2.7-4.5) mg/dL Albumin 3.5 (3.2-5.2) gm/dL Pituitary panel 12/22/16 Range/Units 04:10 Sodium 135 (133-145) mmol/L Potassium 3.5 (3.3-5.1) mmol/L Chloride 98 (96-108) mmol/L Carbon Dioxide 18 L (22-30) mmol/L BUN 4 L (6-20) mg/dl Creatinine 0.5 L (0.6-1.1) mg/dl Glucose 188 H (70-105) mg/dL Calcium 8.3 L (8.6-10.4) mg/dl Adrenal panel 12/22/16 Range/Units 04:10 Sodium 135 (133-145) mmol/L Potassium 3.5 (3.3-5.1) mmol/L Chloride 98 (96-108) mmol/L Carbon Dioxide 18 L (22-30) mmol/L BUN 4 L (6-20) mg/dl Creatinine 0.5 L (0.6-1.1) mg/dl Glucose 188 H (70-105) mg/dL Calcium 8.3 L (8.6-10.4) mg/dl Total Bilirubin 1.4 H (0.0-1.0) mg/dL AST 25 (0-37) U/l ALT 15 (0-40) U/l Alkaline Phosphatase 75 (39-117) U/L Total Protein 7.0 (5.9-8.4) gm/dL Albumin 3.5 (3.2-5.2) gm/dL Assessment and Plan (1) Diverticulitis large intestine Status: Acute Assessment and plan: Diet will be restarted with clear liquids. It will be advanced as she tolerates it. Labs will be repeated in the morning. Current Visit: Yes (2) Diabetes mellitus Status: Acute Current Visit: Yes (3) Hypertension Status: Acute Current Visit: Yes (4) Depression Status: Acute Current Visit: Yes - Time Spent With Patient Total time spent is greater than 50% in coordination of care (as documented) at patient's floor/unit and/or counseling patient:
--- NOTE | 2016-12-22 16:06 | Cat Scan Report ---
CLINICAL INFORMATION: Follow up diverticulitis in the proximal transverse colon COMPARISON: Abdomen and pelvic CT two days prior 12/20/2016. TECHNIQUE: Following enteric contrast, 80 cc of [id number] were injected intravenously, and 60 seconds later, 2.5 mm helical slices were obtained from the mid heart through the subtrochanteric regions. Following reconstruction, 2.5 mm sagittal, coronal and axial reformatted images were processed and reviewed at bone, lung and soft tissue windows. Five minutes later, 5 mm helical slices were obtained from the mid heart through the kidneys and viewed at soft tissue windows. FINDINGS: Lung bases show no abnormality - no effusion. The visualized heart is normal. Images should the abdomen show the gallbladder is surgically absent. The intrahepatic and extrahepatic bile ducts are normal caliber colon CBD is 5 mm. The liver, both kidneys, adrenal glands, spleen, pancreas and aorta including aortic branches are normal in size, configuration and attenuation without focal lesion. Images through the pelvis show urinary bladder to be normal. Uterus is slightly leftward tip but is normal in size. The region of the ovaries are normal. Since the previous study, the inflammation surrounding the giant diverticulum projecting superiorly from the proximal transverse colon has diminished considerably. There is a only a trace of simple appearing fluid in the right lower quadrant false pelvis. The remaining colon, including the appendix, small bowel and stomach are normal. Bone windows show no osseous abnormality IMPRESSION: 1. Marked improvement of focal diverticulitis in the proximal transverse colon. There is only minimal residual pericolonic inflammation. Trace amount of free fluid seen in the right lower quadrant. Exam is otherwise normal Interpreted and Authenticated by: Benji Rojas 12/22/16
[2016-12-22] MEDS: MIRTAZAPINE 15 MG TABLET PO SCH (21:28)
[2016-12-22] MEDS: SIMVASTATIN 20 MG TABLET PO SCH (21:28)
[2016-12-23] MEDS: 0.9 % SODIUM CHLORIDE 1,000 ML IV SCH ×3 (03:00→19:31)
[2016-12-23] MEDS: METOCLOPRAMIDE 10 MG/2 ML VIAL IV SCH ×4 (05:12→23:42)
[2016-12-23] MEDS: 0.9 % SODIUM CHLORIDE 10 ML SYRINGE IV SCH ×3 (05:12→21:13)
[2016-12-23 05:55] LABS: Basophils # (Auto) 0 K/mcL (0.0-0.3); Basophils % (Auto) 0.2 % (0.0-2.0); Eosinophils # (Auto) 0.1 K/mcL (0.0-0.7); Eosinophils % (Auto) 0.8 % (0.0-7.0); Granulocytes % (Auto) 70.1 % (38.0-78.0); Lymphocytes # (Auto) 2.2 K/mcL (1.5-4.8); Lymphocytes % (Auto) 23.1 % (15.5-49.0); Mean Cell Volume 99.5 fL (80.0-100.0); Mean Corpuscular HGB Conc 34.3 g/dL (31.0-36.0); Mean Corpuscular Hemoglobin 34.2 pg (26.0-34.0); Monocytes # (Auto) 0.6 K/mcL (0.1-0.9); Monocytes % (Auto) 5.8 % (1.0-12.0); Platelet Count 304 K/mcL (140-440); RBC 3.41 M/mcL (4.00-5.20); Red Cell Distribution Width 13.3 % (11.5-14.5)
[2016-12-23] MEDS: metroNIDAZOLE 500 MG/100 ML BAG IV SCH ×3 (06:07→23:42)
[2016-12-23 06:10] LABS: ALT/SGPT 16 U/l (0-40); Albumin 3.3 gm/dL (3.2-5.2); Alkaline Phosphatase 74 U/L (39-117); Bilirubin,Direct 0.3 mg/dL (0.0-0.3); Blood Urea Nitrogen 4 mg/dl (6-20); Gamma Glutamyl Transpeptidase 35 U/L (5-36); Magnesium 1.9 mg/dL (1.6-2.5); Uric Acid 5.4 mg/dL (2.5-8.0)
[2016-12-23] MEDS: INSULIN LISPRO 1 UNIT/0.01 ML UNIT SQ SCH ×4 (07:38→21:13)
[2016-12-23] MEDS: PROMETHAZINE 25 MG/ML VIAL IV PRN (07:39)
[2016-12-23] MEDS: LEVOTHYROXINE SODIUM 112 MCG TABLET PO SCH (07:39)
[2016-12-23] MEDS: LEVOTHYROXINE 25 MCG TABLET PO SCH (07:39)
[2016-12-23 08:46] LABS: Legionella pneumophilia Ag, Ur NOT DETECTED
[2016-12-23] MEDS: HEPARIN 5,000 UNIT/ML VIAL SQ SCH ×2 (09:12→21:12)
[2016-12-23] MEDS: MULTIVIT,THER IRON,CA,FA & MIN 1 TABLET PO SCH (09:12)
[2016-12-23] MEDS: FAMOTIDINE/PF 20 MG/2 ML VIAL IV SCH (09:12)
[2016-12-23] MEDS: CIPROFLOXACIN 400 MG/200 ML BAG IV SCH ×2 (09:15→21:12)
--- NOTE | 2016-12-23 10:39 | Internal Med Progress Note ---
Medical - PN: Subj Patient information: Note initiated : 12/23/16 at 10:39 am Service Date, if different from initiated Date: [] Patient: Unique Spencer a 51 y/o F admitted on 12/20/16 for Shortness of Breath, Vomiting/Gastroenteritis, PNA. Chief Complaint: [] Interval history: December 20, 2016: History of present illness: Ms. Spencer is a 51 year old female with h/o asthma, DM, recent right TKA , presents to the hospital today with complaints of abdominal pain x 1 day. Nausea and vomiting . The patient notes that she was ok until this AM, and then she has sudden onset abdominal pain, predominantly in the mid, and right abdominal region, diffuse, burning type, moving up, intermittent in nature. The pain lasts for 5-10 mins once it comes then subsides but does not go away. The patients pain is associated with significant nausea and vomiting. She denies any aggravating or releving factor for her pain. In the ER the patient has mild leucocytosis, and gievn her h/o recent SX she underwent a CTA chest which is neg for PE, but did show early pulmonary fibrosis vs infiltrate. Pt has no respiratory symptoms, The patient K was 3.2, X ray of Abdomen is negative. LFT neg, Pt has TKA done last month, and was taking narcotic pain medication for pain management. She had some constipation and she took 3 pills of OTC stool softeners to help her go and stopped the percoset which helped her a bit. Pt has s/p cholecystectomy, but still has her appendix. 12/21: Pt seen examined, had CT Abdomen done yesterday, noted to have large diverticulium with diverticulitis, Gen surg consulted, advised IV ABX and close monitoring. Appreciate consult. Patient reports that the lung findings she has are chronic and she has had a lung biopsy for same. Pt is now on cipro and flagyl for Abdominal source. Plan is for CT scan abdo and pelvis on Tuesday to evaluate the diverticulitis. She is still nauseas, but pain is better. No vomiting. 12/22: Pt seen examined, pt was drowsy last night needing oxygen, etiology? drug related vs infection. WBC count is up today, CT scan abdomen done, read pending. Patient this AM still has nausea, Abdominal pain is better. She still has loose stools. December 23: this patient had a left total knee replacement on December 14, 2016. She was discharged around December 17. hortly after, she felt that she developed constipation. She took bowel meds, and this was followed by the onset of nausea , vomiting, diarrhea. She presented to the emergency room on December 20, with abdominal pain, nausea and vomiting. workup actually showed diverticulitis, with a very large, 3 cm, diverticulum. Dr. Hayden of general surgery was then consulted. He suggested continuing IV antibiotics and bowel rest . CT scan yesterday looked improved, so a clear liquid diet was started. today, the patient notes she really is not feeling very well at all. She has significant nausea, and feels that her abdomen is more uncomfortable. She also feels a little bit feverish and chilled at times. She has not vomited. She has had several loose stools, and C. difficile screen has been negative. She denies headaches or dizziness, sore throat or cough, chest pain or palpitations, shortness of breath, dysuria. - Constitutional Vitals: Vital Signs Temp Pulse Resp BP Pulse Ox 98.5 F 65 20 122/70 95 12/23/16 07:55 12/23/16 04:00 12/23/16 07:55 12/23/16 07:55 12/23/16 07:55 Period Temp Pulse Resp BP Sys/Mcdonough Pulse Ox Last 24 Hr 97.2 F-98.5 F 61-66 16-20 117-157/67-81 91-96 Intake and Output 12/22/16 12/23/16 12/23/16 21:59 05:59 13:59 Intake Total 550 / 550 1450 / 1450 Output Total 850 / 850 1450 / 1450 800 / 800 Balance -300 / -300 0 / 0 -800 / -800 Weight 171 lb 8 oz Intake & Output: Intake & Output 12/22/16 12/23/16 12/23/16 21:59 05:59 13:59 Intake Total 550 / 550 1450 / 1450 Output Total 850 / 850 1450 / 1450 800 / 800 Balance -300 / -300 0 / 0 -800 / -800 Weight 171 lb 8 oz Intake: IV 100 / 100 1300 / 1300 Sodium Chloride 0.9% 1, 1000 / 1000 000 ml @ 125 mls/hr IV . Q8H KACEY Rx#:[id number] Oral 450 / 450 150 / 150 Output: Void Amount 850 / 850 1450 / 1450 800 / 800 Other: Meal Dinner Breakfast Percent of Meal Consumed 100% Refused Feeding Ability Independent # Voids 1 1 # Bowel Movements 1 1 on exam, she is a well-developed well-nourished female, who was sleeping when I enter the room. When I awakened her, she noted that she just was not feeling well today. neck is supple without obvious lymphadenopathy or JVD. Cardiac exam shows regular rate and rhythm, 2/6 systolic ejection murmur noted. Lungs: She does have a few crackles at the bases, but otherwise lungs are without rhonchi or wheezes. Abdomen:Is soft, but she does have some guarding, and appears to have minor rebound pain as well. the pain is fairly diffuse Bowel sounds are active, and somewhat high-pitched. Extremities: no edema. left knee incision is well-healed, without signs of infection. Neurologic exam: Is nonfocal. Medical - PN: Obj Da - Labs CBC & Chem 7: 12/23/16 04:20 12/23/16 04:20 Labs: Abnormal Lab Results 12/23/16 12/23/16 12/22/16 04:20 04:20 04:10 WBC RBC 3.41 L Hgb 11.6 L Hct 33.9 L MCV MCH 34.2 H MPV 7.3 L Gran % Lymph % (Auto) Gran # Lymph # Potassium 3.1 L Chloride 109 H Carbon Dioxide 21 L 18 L Anion Gap 19.0 H BUN 4 L 4 L Creatinine 0.5 L 0.5 L Glucose 130 H 188 H Calcium 8.5 L 8.3 L Phosphorus 2.3 L 2.2 L Total Bilirubin 1.2 H 1.4 H Direct Bilirubin 0.5 H Lactate Dehydrogenase 402 H 367 H Total Protein Albumin Triglycerides 157 H 168 H 12/22/16 12/21/16 12/21/16 04:10 04:58 04:57 WBC 13.0 H RBC 3.42 L 2.83 L Hgb 11.6 L 9.7 L Hct 33.9 L 28.3 L MCV 100.2 H MCH 34.3 H MPV Gran % 91.5 H Lymph % (Auto) 5.7 L Gran # 11.9 H Lymph # 0.7 L Potassium Chloride Carbon Dioxide 21 L Anion Gap BUN Creatinine 0.5 L Glucose Calcium 7.7 L Phosphorus 1.8 L Total Bilirubin Direct Bilirubin Lactate Dehydrogenase 289 H Total Protein 5.8 L Albumin 3.0 L Triglycerides 159 H December 22: -c. difficile screen is negative. -CT scan of the abdomen: market improvement of focal diverticulitis in the proximal transverse colon. Minimal residual pericolonic inflammation. december 20: Abdominal CT: Giant inflames diverticuli projecting from the proximal transverse colon, without evidence of abscess. December 19: - Blood cultures are negative so far -EKG: Shows sinus rhythm at a rate of 68. Left atrial enlargement. Probable old anteroseptal IA, with slow R-wave progression. -left lower extremity venous Doppler: 6 cm fluid collection into the popliteal fossa, likely a postop seroma -CT angios the chest: no pulmonary emboli. Mild groundglass alveolar infiltrates in both lower lobes, as well as honeycombing and mild interstitial fibrosis in the upper lobes. Possible early stage of usual interstitial pneumonia (idiopathic pulmonary fibrosis0. Consider also chronic hypersensitivity reaction and pneumonia. Mild atherosclerotic heart coronary artery disease. -chest x-ray: Lungs are clear, normal chest x-ray. abdominal x-ray appeared normal. Meds: Medications Albuterol/Ipratropium (Duoneb) 3 ml NEB Q4HRT PRN PRN Reason: Shortness Of Breath Or Wheezing Dextrose (Dextrose 50%) 0 ml IV UD PRN PRN Reason: Hypoglycemia Diagnostic Test (Pha) (Accu-Chek) 1 each FS ACHS [facility] Last Admin: 12/23/16 07:38 Dose: 1 each Famotidine (Pepcid) 20 mg IV Q12 [facility] Last Admin: 12/23/16 09:12 Dose: 20 mg Heparin Sodium (Porcine) (Heparin) 5,000 unit SQ Q12 [facility] Last Admin: 12/23/16 09:12 Dose: 5,000 unit Sodium Chloride (Sodium Chloride 0.9%) 1,000 mls @ 125 mls/hr IV .Q8H [facility] Last Admin: 12/23/16 03:00 Dose: 125 mls/hr Metronidazole (Flagyl) 500 mg in 100 mls @ 100 mls/hr IV Q8H [facility] Last Admin: 12/23/16 06:07 Dose: 100 mls/hr Ciprofloxacin (Cipro) 400 mg in 200 mls @ 200 mls/hr IV Q12H [facility] Last Admin: 12/23/16 09:15 Dose: 200 mls/hr Insulin Human Lispro (Humalog) 0 unit SQ ACHS [facility] PRN Reason: Protocol Last Admin: 12/23/16 07:38 Dose: 2 unit Iron Carb/Multivit/Rib Trim Separator/Folic Acid (Multivitamin W/Minerals) 1 tab PO DAILY [facility] Last Admin: 12/23/16 09:12 Dose: Not Given Levothyroxine Sodium (Synthroid) 112 mcg PO QAMAC [facility] Last Admin: 12/23/16 07:39 Dose: 112 mcg Levothyroxine Sodium (Synthroid) 25 mcg PO QAMAC [facility] Last Admin: 12/23/16 07:39 Dose: 25 mcg Metoclopramide HCl (Reglan) 10 mg IV Q6 [facility] Last Admin: 12/23/16 05:12 Dose: 10 mg Mirtazapine (Remeron) 45 mg PO [facility] Last Admin: 12/22/16 21:28 Dose: 45 mg Morphine Sulfate (Morphine) 1 - 2 mg IV Q3HP PRN PRN Reason: Pain Naloxone HCl (Narcan) 0.1 mg IV Q2MIN PRN PRN Reason: Opiate Reversal Promethazine HCl (Phenergan) 12.5 mg IV Q6HP PRN PRN Reason: Nausea And Vomiting Last Admin: 12/23/16 07:39 Dose: 12.5 mg Simvastatin (Zocor) 20 mg PO [facility] Last Admin: 12/22/16 21:28 Dose: 20 mg Sodium Chloride (Saline Flush) 10 ml IV Q8 [facility] Last Admin: 12/23/16 05:12 Dose: 10 ml Medical - PN: A/P - Time Spent With Patient Total time spent is greater than 50% in coordination of care (as documented) at patient's floor/unit and/or counseling patient: Greater than 35 minutes - Narrative A/P Narrative: #1. GI/infectious disease. -Patient presents with signs and symptoms of diverticulitis. She was improving yesterday, but is feeling worse today. White blood cell count is improving. Her exam appears more abnormal than yesterday I have contacted Dr. Hayden, and he will follow up with her later today. -continue IV ciprofloxacin and Flagyl. -continue anti-emetics. -Add IV Protonix, to replace her home omeprazole. -hold oral multivitamin, as this may aggravate nausea. Add when necessary Zofran. -we do not believe any longer that she has pneumonia. Chest CT is more suggestive of pulmonary fibrosis. #2. Neurologic. -Patient apparently had some confusion night before last, and this was thought due to a combination of Dilaudid and Phenergan. These were held and the patient seems quite alert today and neurologically intact. #3.Hypokalemia: -potassium is low again today, and will be replaced. 34.Dm: -blood sugars running in the 180 range. Continue sliding scale insulin. -metformin is on hold as well. - Amaryl is also on hold. #5.HTN: BP stable, monitor. meds on hold (losartan) 36. HLD: continue statin #7.DVT: hep sq #8. Code: Full #9. History of depression/insomnia. - Continue when necessary trazodone. continue mirtazapine. -resume Celexa when able. #10. Status post left total knee replacement. She has been doing well with physical therapy. Continue Percocet prn or morphine IV. #11. Postop anemia: Oral iron replacement is on hold as well. approximately 35 minutes has been spent so far today, reviewing the patient's chart, reviewing test results, interviewing and examining her, reviewing plan of care with staff, and touching base with Dr. Hayden. Medical - PN: Qual - VTE Deep Vein Thrombosis/Pulmonary Embolism Present on Admission: No
[2016-12-23] MEDS ORDERED: POTASSIUM CHLORIDE 40 MEQ in DEXTROSE 5% IN WATER 500 ML IV ONE (11:49)
[2016-12-23] MEDS: PANTOPRAZOLE 40 MG VIAL IV SCH (12:16)
[2016-12-23] MEDS: ONDANSETRON 4 MG/2 ML VIAL IV PRN (14:45)
--- NOTE | 2016-12-23 17:23 | General Surgery Progress Note ---
Subjective Patient reports: still having pain, flatus, bowel movement, nausea, vomiting, afebrile Narrative: Note initiated : 12/23/16 at 5:21 pm Service Date, if different from initiated Date: [] Patient: Unique Spencer 51 y/o F admitted on 12/20/16 for Shortness of Breath, Vomiting/Gastroenteritis, PNA. Chief Complaint: [Patient states that she is still having significant pain and she has nausea with vomiting shortly after eating. This suggests an upper GI problem. Discussed with her the need to proceed with upper endoscopy in the morning. She gives her informed consent. Will not advance diet until after endoscopy is completed. Patient will also be given Ativan 0.5 mg every 8 hours for anxiety] Objective Temp Pulse Resp BP Pulse Ox 98 F 65 20 118/70 95 12/23/16 15:52 12/23/16 04:00 12/23/16 15:52 12/23/16 15:52 12/23/16 15:52 - Additional Data Intake & Output - Last 24 hours: Intake & Output 12/21/16 12/22/16 12/23/16 12/24/16 05:59 05:59 05:59 05:59 Intake Total 1350 / 2650 2700 / 2700 3900 / 3900 350 / 350 Output Total 175 / 195 3700 / 3700 4100 / 4100 1450 / 1450 Balance 1175 / 2455 -1000 / -1000 -200 / -200 -1100 / -1100 Weight 175 lb 175 lb 8 oz 171 lb 8 oz - Respiratory clear to auscultation - Cardiovascular Cardiovascular exam: Present: normal rate and rhythm, RRR, +S1, +S2. Absent: JVD - Abdomen soft, non tender, bowel sounds, distended (The patient's abdomen is mildly distended but is nontender to palpation. She has good active bowel sounds. The tenderness that she had in the right upper quadrant and epigastric region is no longer present.) - Musculoskeletal normal gait, normal posture - Psychiatric oriented to time, oriented to person, oriented to place, speech is normal, memory intact, other (She also has significant anxiety) - Labs 12/23/16 04:20 12/23/16 04:20 Diabetes panel 12/23/16 Range/Units 04:20 Sodium 145 (133-145) mmol/L Potassium 3.1 L (3.3-5.1) mmol/L Chloride 109 H (96-108) mmol/L Carbon Dioxide 21 L (22-30) mmol/L BUN 4 L (6-20) mg/dl Creatinine 0.5 L (0.6-1.1) mg/dl Glucose 130 H (70-105) mg/dL Calcium 8.5 L (8.6-10.4) mg/dl AST 29 (0-37) U/l ALT 16 (0-40) U/l Alkaline Phosphatase 74 (39-117) U/L Total Protein 6.5 (5.9-8.4) gm/dL Albumin 3.3 (3.2-5.2) gm/dL Triglycerides 157 H (<150) mg/dl Calcium panel 12/23/16 Range/Units 04:20 Calcium 8.5 L (8.6-10.4) mg/dl Phosphorus 2.3 L (2.7-4.5) mg/dL Albumin 3.3 (3.2-5.2) gm/dL Pituitary panel 12/23/16 Range/Units 04:20 Sodium 145 (133-145) mmol/L Potassium 3.1 L (3.3-5.1) mmol/L Chloride 109 H (96-108) mmol/L Carbon Dioxide 21 L (22-30) mmol/L BUN 4 L (6-20) mg/dl Creatinine 0.5 L (0.6-1.1) mg/dl Glucose 130 H (70-105) mg/dL Calcium 8.5 L (8.6-10.4) mg/dl Adrenal panel 12/23/16 Range/Units 04:20 Sodium 145 (133-145) mmol/L Potassium 3.1 L (3.3-5.1) mmol/L Chloride 109 H (96-108) mmol/L Carbon Dioxide 21 L (22-30) mmol/L BUN 4 L (6-20) mg/dl Creatinine 0.5 L (0.6-1.1) mg/dl Glucose 130 H (70-105) mg/dL Calcium 8.5 L (8.6-10.4) mg/dl Total Bilirubin 1.2 H (0.0-1.0) mg/dL AST 29 (0-37) U/l ALT 16 (0-40) U/l Alkaline Phosphatase 74 (39-117) U/L Total Protein 6.5 (5.9-8.4) gm/dL Albumin 3.3 (3.2-5.2) gm/dL Assessment and Plan (1) Diverticulitis large intestine Status: Acute Assessment and plan: Scheduled for upper endoscopy in the morning. Current Visit: Yes (2) Diabetes mellitus Status: Acute Current Visit: Yes (3) Hypertension Status: Acute Current Visit: Yes (4) Depression Status: Acute Current Visit: Yes - Time Spent With Patient Total time spent is greater than 50% in coordination of care (as documented) at patient's floor/unit and/or counseling patient:
[2016-12-23] MEDS ORDERED: traZODone HCL 50 MG TABLET PO SCH (21:00)
[2016-12-23] MEDS: MIRTAZAPINE 15 MG TABLET PO SCH (21:12)
[2016-12-23] MEDS: SIMVASTATIN 20 MG TABLET PO SCH (21:12)
[2016-12-24] MEDS: ONDANSETRON 4 MG/2 ML VIAL IV PRN ×3 (02:19→13:41)
[2016-12-24] MEDS: 0.9 % SODIUM CHLORIDE 1,000 ML IV SCH ×4 (04:32→20:55)
[2016-12-24 05:50] LABS: Basophils # (Auto) 0 K/mcL (0.0-0.3); Basophils % (Auto) 0.2 % (0.0-2.0); Eosinophils # (Auto) 0.1 K/mcL (0.0-0.7); Eosinophils % (Auto) 0.6 % (0.0-7.0); Granulocytes % (Auto) 87.1 % (38.0-78.0); Lymphocytes # (Auto) 0.9 K/mcL (1.5-4.8); Mean Cell Volume 100.1 fL (80.0-100.0); Mean Corpuscular HGB Conc 34.3 g/dL (31.0-36.0); Mean Corpuscular Hemoglobin 34.4 pg (26.0-34.0); Monocytes # (Auto) 0.5 K/mcL (0.1-0.9); Monocytes % (Auto) 4.1 % (1.0-12.0); Platelet Count 310 K/mcL (140-440); RBC 3.61 M/mcL (4.00-5.20); Red Cell Distribution Width 13.3 % (11.5-14.5)
[2016-12-24] MEDS: METOCLOPRAMIDE 10 MG/2 ML VIAL IV SCH ×3 (05:54→17:40)
[2016-12-24] MEDS: metroNIDAZOLE 500 MG/100 ML BAG IV SCH ×3 (05:55→22:30)
[2016-12-24] MEDS: 0.9 % SODIUM CHLORIDE 10 ML SYRINGE IV SCH ×3 (06:09→21:12)
[2016-12-24 06:16] LABS: ALT/SGPT 14 U/l (0-40); Albumin 3.5 gm/dL (3.2-5.2); Albumin/Globulin Ratio 1.1 (1.0-2.3); Alkaline Phosphatase 71 U/L (39-117); Bilirubin,Direct 0.2 mg/dL (0.0-0.3); Blood Urea Nitrogen 4 mg/dl (6-20); Gamma Glutamyl Transpeptidase 37 U/L (5-36); Magnesium 1.6 mg/dL (1.6-2.5); Uric Acid 5.1 mg/dL (2.5-8.0)
[2016-12-24] MEDS: PANTOPRAZOLE 40 MG VIAL IV SCH ×2 (07:46→17:40)
[2016-12-24] MEDS: INSULIN LISPRO 1 UNIT/0.01 ML UNIT SQ SCH ×4 (07:46→21:11)
[2016-12-24] MEDS: LEVOTHYROXINE SODIUM 112 MCG TABLET PO SCH (07:47)
[2016-12-24] MEDS: LEVOTHYROXINE 25 MCG TABLET PO SCH (07:47)
[2016-12-24] MEDS: HEPARIN 5,000 UNIT/ML VIAL SQ SCH (08:57)
[2016-12-24] MEDS: CIPROFLOXACIN 400 MG/200 ML BAG IV SCH ×2 (08:59→21:00)
[2016-12-24] MEDS: PROMETHAZINE 25 MG/ML VIAL IV PRN (09:00)
[2016-12-24] MEDS ORDERED: GLYCOPYRROLATE 0.2 MG/ML VIAL IV ONE (09:10)
[2016-12-24] MEDS ORDERED: PROPOFOL 200 MG/20 ML VIAL IV ONE (09:10)
[2016-12-24] MEDS ORDERED: MIDAZOLAM 5 MG/5 ML VIAL IV ONE (09:10)
--- NOTE | 2016-12-24 09:33 | Brief Operative Note ---
Date of procedure: 12/24/16 Pre-op diagnosis: recurrent nausea and vomiting; acute abdominal pain Post-op diagnosis: other (gastroparesis; bilious retention with diffuse severe gastritis) Procedure: EGD WITH LALI-TEST AND ANTRAL BIOPSIES Grafts/Implants: No Anesthesia: MAC Findings: RETAINED BILE IN ESOPHAGUS STOMACH ABOUT 1/2 FILLED WITH THICK BILE SEVERE TOTAL GASTRIC INFLAMMATION DUODENAL BULB INFLAMMATION MARKED GASTROPARESIS Complications: none Surgeon: Nickie Hayden Specimens Removed/Pathology: other (GASTRIC ANTRUM BIOPSIES AND LALI TEST) Condition: stable Disposition: PACU
--- NOTE | 2016-12-24 09:39 | Internal Med Progress Note ---
Medical - PN: Subj Patient information: Note initiated : 12/24/16 at 9:39 am Patient: Unique Spencer 51 y/o F admitted on 12/20/16 for Shortness of Breath, Vomiting/Gastroenteritis, PNA. Interval history: December 20, 2016: History of present illness: Ms. Spencer is a 51 year old female with h/o asthma, DM, recent right TKA , presents to the hospital today with complaints of abdominal pain x 1 day. Nausea and vomiting . The patient notes that she was ok until this AM, and then she has sudden onset abdominal pain, predominantly in the mid, and right abdominal region, diffuse, burning type, moving up, intermittent in nature. The pain lasts for 5-10 mins once it comes then subsides but does not go away. The patients pain is associated with significant nausea and vomiting. She denies any aggravating or releving factor for her pain. In the ER the patient has mild leucocytosis, and gievn her h/o recent SX she underwent a CTA chest which is neg for PE, but did show early pulmonary fibrosis vs infiltrate. Pt has no respiratory symptoms, The patient K was 3.2, X ray of Abdomen is negative. LFT neg, Pt has TKA done last month, and was taking narcotic pain medication for pain management. She had some constipation and she took 3 pills of OTC stool softeners to help her go and stopped the percoset which helped her a bit. Pt has s/p cholecystectomy, but still has her appendix. 12/21: Pt seen examined, had CT Abdomen done yesterday, noted to have large diverticulium with diverticulitis, Gen surg consulted, advised IV ABX and close monitoring. Appreciate consult. Patient reports that the lung findings she has are chronic and she has had a lung biopsy for same. Pt is now on cipro and flagyl for Abdominal source. Plan is for CT scan abdo and pelvis on Tuesday to evaluate the diverticulitis. She is still nauseas, but pain is better. No vomiting. 12/22: Pt seen examined, pt was drowsy last night needing oxygen, etiology? drug related vs infection. WBC count is up today, CT scan abdomen done, read pending. Patient this AM still has nausea, Abdominal pain is better. She still has loose stools. December 23: this patient had a left total knee replacement on December 14, 2016. She was discharged around December 17. hortly after, she felt that she developed constipation. She took bowel meds, and this was followed by the onset of nausea , vomiting, diarrhea. She presented to the emergency room on December 20, with abdominal pain, nausea and vomiting. workup actually showed diverticulitis, with a very large, 3 cm, diverticulum. Dr. Hayden of general surgery was then consulted. He suggested continuing IV antibiotics and bowel rest . CT scan yesterday looked improved, so a clear liquid diet was started. today, the patient notes she really is not feeling very well at all. She has significant nausea, and feels that her abdomen is more uncomfortable. She also feels a little bit feverish and chilled at times. She has not vomited. She has had several loose stools, and C. difficile screen has been negative. She denies headaches or dizziness, sore throat or cough, chest pain or palpitations, shortness of breath, dysuria. December 24: the patient has continued to have abdominal discomfort overnight and this morning, as well as ongoing nausea. She did have an upper endoscopy this morning with Dr. Hayden, which showed severe gastritis and retention of bile and market gastroparesis. otherwise, she denied fever or chills, headaches or dizziness, chest pain or shortness of breath, rectal bleeding, dysuria. - Constitutional Vitals: Vital Signs Temp Pulse Resp BP Pulse Ox 98.3 F 68 18 130/74 95 12/24/16 06:47 12/24/16 04:00 12/24/16 07:56 12/24/16 06:47 12/24/16 07:56 Period Temp Pulse Resp BP Sys/Mcdonough Pulse Ox Last 24 Hr 97.7 F-98.3 F 58-68 14-20 99-172/57-80 90-95 Intake and Output 12/23/16 12/24/16 12/24/16 21:59 05:59 13:59 Intake Total 790 / 790 300 / 300 1000 / 1000 Output Total 1050 / 1050 300 / 300 200 / 200 Balance -260 / -260 0 / 0 800 / 800 Weight 165 lb 8 oz Intake & Output: Intake & Output 12/23/16 12/24/16 12/24/16 21:59 05:59 13:59 Intake Total 790 / 790 300 / 300 1000 / 1000 Output Total 1050 / 1050 300 / 300 200 / 200 Balance -260 / -260 0 / 0 800 / 800 Weight 165 lb 8 oz Intake: IV 620 / 620 300 / 300 1000 / 1000 Sodium Chloride 0.9% 1, 1000 / 1000 000 ml @ 125 mls/hr IV . Q8H [facility] Rx#:[id number] Potassium Chloride 40 Meq 520 / 520 In Dextrose 5% in Water 500 ml @ 130 mls/hr IV ONCE ONE Rx#:[id number] Oral 170 / 170 Output: Void Amount 1050 / 1050 300 / 300 200 / 200 Other: # Voids 1 1 # Bowel Movements 1 he is not in acute distress, but does grimace during her abdominal exam. neck is supple without obvious lymphadenopathy or JVD. Cardiac exam shows regular rate and rhythm, 2/6 systolic ejection murmur noted. Lungs: She does have a few crackles at the bases, but otherwise lungs are without rhonchi or wheezes. Abdomen:Is soft, but she does have some guarding, and appears to have minor rebound pain as well. he feels she is most tender in her lower abdomen this morning. Extremities: no edema. left knee incision is well-healed, without signs of infection. Neurologic exam: Is nonfocal. Medical - PN: Obj Da - Labs CBC & Chem 7: 12/24/16 04:40 12/24/16 04:40 Labs: Abnormal Lab Results 12/24/16 12/24/16 12/23/16 04:40 04:40 04:20 WBC 11.8 H RBC 3.61 L Hgb Hct MCV 100.1 H MCH 34.4 H MPV 7.2 L Gran % 87.1 H Lymph % (Auto) 8.0 L Gran # 10.3 H Lymph # 0.9 L Potassium 3.1 L Chloride 109 H Carbon Dioxide 21 L 21 L Anion Gap 17.0 H BUN 4 L 4 L Creatinine 0.5 L 0.5 L Glucose 196 H 130 H Calcium 8.3 L 8.5 L Phosphorus 2.4 L 2.3 L Total Bilirubin 1.1 H 1.2 H Direct Bilirubin GGT 37 H Lactate Dehydrogenase 467 H 402 H Triglycerides 167 H 157 H 12/23/16 12/22/16 12/22/16 04:20 04:10 04:10 WBC 13.0 H RBC 3.41 L 3.42 L Hgb 11.6 L 11.6 L Hct 33.9 L 33.9 L MCV MCH 34.2 H MPV 7.3 L Gran % 91.5 H Lymph % (Auto) 5.7 L Gran # 11.9 H Lymph # 0.7 L Potassium Chloride Carbon Dioxide 18 L Anion Gap 19.0 H BUN 4 L Creatinine 0.5 L Glucose 188 H Calcium 8.3 L Phosphorus 2.2 L Total Bilirubin 1.4 H Direct Bilirubin 0.5 H GGT Lactate Dehydrogenase 367 H Triglycerides 168 H December 22: -c. difficile screen is negative. -CT scan of the abdomen: market improvement of focal diverticulitis in the proximal transverse colon. Minimal residual pericolonic inflammation. december 20: Abdominal CT: Giant inflames diverticuli projecting from the proximal transverse colon, without evidence of abscess. December 19: - Blood cultures are negative so far -EKG: Shows sinus rhythm at a rate of 68. Left atrial enlargement. Probable old anteroseptal MT, with slow R-wave progression. -left lower extremity venous Doppler: 6 cm fluid collection into the popliteal fossa, likely a postop seroma -CT angios the chest: no pulmonary emboli. Mild groundglass alveolar infiltrates in both lower lobes, as well as honeycombing and mild interstitial fibrosis in the upper lobes. Possible early stage of usual interstitial pneumonia (idiopathic pulmonary fibrosis0. Consider also chronic hypersensitivity reaction and pneumonia. Mild atherosclerotic heart coronary artery disease. -chest x-ray: Lungs are clear, normal chest x-ray. abdominal x-ray appeared normal. Meds: Medications Albuterol/Ipratropium (Duoneb) 3 ml NEB Q4HRT PRN PRN Reason: Shortness Of Breath Or Wheezing Dextrose (Dextrose 50%) 0 ml IV UD PRN PRN Reason: Hypoglycemia Diagnostic Test (Pha) (Accu-Chek) 1 each FS ACHS KACEY Last Admin: 12/24/16 07:45 Dose: 1 each Heparin Sodium (Porcine) (Heparin) 5,000 unit SQ Q12 [facility] Last Admin: 12/24/16 08:57 Dose: Not Given Sodium Chloride (Sodium Chloride 0.9%) 1,000 mls @ 125 mls/hr IV .Q8H [facility] Last Admin: 12/24/16 08:58 Dose: 125 mls/hr Metronidazole (Flagyl) 500 mg in 100 mls @ 100 mls/hr IV Q8H [facility] Last Admin: 12/24/16 05:55 Dose: 100 mls/hr Ciprofloxacin (Cipro) 400 mg in 200 mls @ 200 mls/hr IV Q12H [facility] Last Admin: 12/24/16 08:59 Dose: 200 mls/hr Insulin Human Lispro (Humalog) 0 unit SQ ACHS [facility] PRN Reason: Protocol Last Admin: 12/24/16 07:46 Dose: 4 unit Levothyroxine Sodium (Synthroid) 112 mcg PO [facility] Last Admin: 12/24/16 07:47 Dose: Not Given Levothyroxine Sodium (Synthroid) 25 mcg PO [facility] Last Admin: 12/24/16 07:47 Dose: Not Given Metoclopramide HCl (Reglan) 10 mg IV Q6 [facility] Last Admin: 12/24/16 05:54 Dose: 10 mg Mirtazapine (Remeron) 45 mg PO [facility] Last Admin: 12/23/16 21:12 Dose: 45 mg Morphine Sulfate (Morphine) 1 - 2 mg IV Q3HP PRN PRN Reason: Pain Last Admin: 12/23/16 17:52 Dose: 1 mg Naloxone HCl (Narcan) 0.1 mg IV Q2MIN PRN PRN Reason: Opiate Reversal Ondansetron HCl (Zofran) 4 mg IV Q4-6HP PRN PRN Reason: Nausea And Vomiting Last Admin: 12/24/16 07:56 Dose: 4 mg Pantoprazole Sodium (Protonix) 40 mg IV [facility] Last Admin: 12/24/16 07:46 Dose: Not Given Promethazine HCl (Phenergan) 12.5 mg IV Q6HP PRN PRN Reason: Nausea And Vomiting Last Admin: 12/24/16 09:00 Dose: 12.5 mg Simvastatin (Zocor) 20 mg PO [facility] Last Admin: 12/23/16 21:12 Dose: 20 mg Sodium Chloride (Saline Flush) 10 ml IV Q8 [facility] Last Admin: 12/24/16 06:09 Dose: Not Given Trazodone HCl (Desyrel) 50 mg PO [facility] Last Admin: 12/23/16 21:12 Dose: 50 mg Medical - PN: A/P - Time Spent With Patient Total time spent is greater than 50% in coordination of care (as documented) at patient's floor/unit and/or counseling patient: - Narrative A/P Narrative: #1. GI/infectious disease. -Patient presents with signs and symptoms of diverticulitis. she initially improved with IV antibiotics, but then had recurrent upper abdominal pain. Upper endoscopy today show severe gastroparesis and bile retention. she is now on oral sucralfate plus IV Protonix. Biopsies are pending. -Continue Reglan for gastroparesis. -continue IV ciprofloxacin and Flagyl. -continue anti-emetics. -White blood cell count is a bit higher today. Continue to follow. -replace phosphorus when taking by mouth well #2. Neurologic. -Patient apparently had some confusion night before last, and this was thought due to a combination of Dilaudid and Phenergan. These were held and the patient now seems quite alert and neurologically intact. #3.Hypokalemia: -potassium is improved. 34.Dm: -blood sugars running in the 136-180 range. Continue sliding scale insulin. -metformin is on hold as well. - Amaryl is also on hold. #5.HTN: BP stable, monitor. meds on hold (losartan) 36. HLD: continue statin #7.DVT: hep sq #8. Code: Full #9. History of depression/insomnia. - Continue when necessary trazodone. continue mirtazapine. -resume Celexa when able. #10. Status post left total knee replacement. She has been doing well with physical therapy. Continue Percocet prn or morphine IV. #11. Postop anemia: Oral iron replacement is on hold as well. approximately 25 minutes has been spent so far today, reviewing the patient's chart, reviewing test results, interviewing and examining her, reviewing plan of care with staff. Medical - PN: Qual - VTE Deep Vein Thrombosis/Pulmonary Embolism Present on Admission: No
[2016-12-24] MEDS ORDERED: DEXTROSE 50% 50 ML VIAL IV PRN (09:50)
[2016-12-24] MEDS ORDERED: IPRATROPIUM/ALBUTEROL 3 ML AMPUL.NEB NEB PRN (09:50)
[2016-12-24] MEDS ORDERED: NALOXONE HCL 0.4 MG/ML VIAL IV PRN (09:50)
[2016-12-24] MEDS ORDERED: PROMETHAZINE 25 MG/ML VIAL IV PRN (09:50)
--- NOTE | 2016-12-24 10:01 | Operative Note ---
DATE OF OPERATION: 12/24/2016 PREOPERATIVE DIAGNOSIS: Recurrent nausea and vomiting, acute abdominal pain. POSTOPERATIVE DIAGNOSIS: Gastroparesis, marked bilious retention with diffuse severe gastritis. PROCEDURE: Esophagogastroduodenoscopy with CLOtest and antral biopsies, and aspiration of large volume of gastric bile. FINDINGS: Retained bile in the esophagus; stomach about one-half filled with thick, viscous bile; severe total inflammation of the stomach starting at the GE junction and extending to the antrum with some deformity of the pylorus with no actual ulcerations, scattered areas of superficial bleeding with no major bleeding, duodenal bulb inflammation, marked gastroparesis. DESCRIPTION OF PROCEDURE: Under general anesthesia, the patient was turned to the left lateral decubitus position. A timeout procedure was carried out as per protocol. Biteblock was placed. The scope was introduced into the retropharynx and into the esophagus. There was some retained bile scattered throughout the esophagus down to the GE junction. The stomach was over one-half filled with thick viscous bile that had to be irrigated in order to aspirate it. The stomach was quite raw starting at the GE junction and extending to the pylorus. There was more intense inflammation in the antrum. Pylorus opened appropriately. There was even bile in the duodenum, which was thicker and more prominent than usual. Second and third portions of the duodenum were unremarkable. Duodenal bulb showed moderate inflammation. The scope was pulled back. Biopsies of the antrum were taken for CLOtest and for routine pathology. The rest of the bile was aspirated. Retroflex view did not reveal any significant abnormality. Some bile in the deeper portion of the fundus was also aspirated. Patient tolerated procedure well. The scope was removed. Patient was awakened and moved to the GI recovery area in stable condition. LCS:ravi Job ID: [id number] Doc ID: [id number] Nickie Hayden M.D.
[2016-12-24] MEDS: SUCRALFATE 1 GM/10 ML ORAL.SUSP PO SCH ×2 (11:55→17:40)
[2016-12-24] MEDS ORDERED: SUCRALFATE 1 GM/10 ML ORAL.SUSP PO SCH (12:00)
[2016-12-24] MEDS ORDERED: PANTOPRAZOLE 40 MG VIAL IV SCH (17:00)
[2016-12-24] MEDS: MIRTAZAPINE 15 MG TABLET PO SCH (21:11)
[2016-12-24] MEDS: SIMVASTATIN 20 MG TABLET PO SCH (21:11)
[2016-12-24] MEDS: traZODone HCL 50 MG TABLET PO SCH (21:11)
[2016-12-25] MEDS: METOCLOPRAMIDE 10 MG/2 ML VIAL IV SCH ×5 (00:02→23:55)
[2016-12-25] MEDS: 0.9 % SODIUM CHLORIDE 1,000 ML IV SCH ×4 (02:37→19:06)
[2016-12-25] MEDS: metroNIDAZOLE 500 MG/100 ML BAG IV SCH ×3 (06:03→21:31)
[2016-12-25] MEDS: SUCRALFATE 1 GM/10 ML ORAL.SUSP PO SCH ×5 (06:03→23:55)
[2016-12-25] MEDS: 0.9 % SODIUM CHLORIDE 10 ML SYRINGE IV SCH ×3 (06:04→23:08)
[2016-12-25 07:08] LABS: Basophils # (Auto) 0 K/mcL (0.0-0.3); Basophils % (Auto) 0.3 % (0.0-2.0); Eosinophils # (Auto) 0.1 K/mcL (0.0-0.7); Eosinophils % (Auto) 0.6 % (0.0-7.0); Granulocytes % (Auto) 86.9 % (38.0-78.0); Lymphocytes # (Auto) 0.9 K/mcL (1.5-4.8); Lymphocytes % (Auto) 7.6 % (15.5-49.0); Mean Cell Volume 98.8 fL (80.0-100.0); Mean Corpuscular HGB Conc 34.3 g/dL (31.0-36.0); Mean Corpuscular Hemoglobin 33.9 pg (26.0-34.0); Monocytes # (Auto) 0.5 K/mcL (0.1-0.9); Monocytes % (Auto) 4.6 % (1.0-12.0); Platelet Count 300 K/mcL (140-440); RBC 3.67 M/mcL (4.00-5.20); Red Cell Distribution Width 13.6 % (11.5-14.5)
[2016-12-25] MEDS: PANTOPRAZOLE 40 MG VIAL IV SCH ×2 (07:26→17:11)
[2016-12-25] MEDS: LEVOTHYROXINE 25 MCG TABLET PO SCH ×2 (07:27→07:31)
[2016-12-25] MEDS: LEVOTHYROXINE SODIUM 112 MCG TABLET PO SCH ×2 (07:27→07:31)
[2016-12-25 07:42] LABS: ALT/SGPT 12 U/l (0-40); Albumin 3.4 gm/dL (3.2-5.2); Albumin/Globulin Ratio 1.1 (1.0-2.3); Alkaline Phosphatase 70 U/L (39-117); Bilirubin,Direct 0.2 mg/dL (0.0-0.3); Blood Urea Nitrogen 4 mg/dl (6-20); Gamma Glutamyl Transpeptidase 33 U/L (5-36); Magnesium 1.4 mg/dL (1.6-2.5); Uric Acid 5.1 mg/dL (2.5-8.0)
[2016-12-25] MEDS: ONDANSETRON 4 MG/2 ML VIAL IV PRN (07:52)
[2016-12-25] MEDS: INSULIN LISPRO 1 UNIT/0.01 ML UNIT SQ SCH ×4 (07:52→21:25)
[2016-12-25] MEDS ORDERED: POTASSIUM CHLORIDE 40 MEQ in DEXTROSE 5% IN WATER 500 ML IV ONE (08:22)
[2016-12-25] MEDS: CIPROFLOXACIN 400 MG/200 ML BAG IV SCH ×2 (08:57→20:26)
[2016-12-25] MEDS: PIPERACILLIN SODIUM/TAZOBACTAM 3.375 GM in DEXTROSE 5% IN WATER 50 ML IV SCH ×4 (11:20→23:56)
--- NOTE | 2016-12-25 11:35 | Internal Med Progress Note ---
Medical - PN: Subj Patient information: Note initiated : 12/25/16 at 11:35 am Patient: Unique Spencer a 51 y/o F admitted on 12/20/16 for Shortness of Breath, Vomiting/ diarrhea and apparent diverticulitis. Interval history: December 20, 2016: History of present illness: Ms. Spencer is a 51 year old female with h/o asthma, DM, recent right TKA , presents to the hospital today with complaints of abdominal pain x 1 day. Nausea and vomiting . The patient notes that she was ok until this AM, and then she has sudden onset abdominal pain, predominantly in the mid, and right abdominal region, diffuse, burning type, moving up, intermittent in nature. The pain lasts for 5-10 mins once it comes then subsides but does not go away. The patients pain is associated with significant nausea and vomiting. She denies any aggravating or releving factor for her pain. In the ER the patient has mild leucocytosis, and gievn her h/o recent SX she underwent a CTA chest which is neg for PE, but did show early pulmonary fibrosis vs infiltrate. Pt has no respiratory symptoms, The patient K was 3.2, X ray of Abdomen is negative. LFT neg, Pt has TKA done last month, and was taking narcotic pain medication for pain management. She had some constipation and she took 3 pills of OTC stool softeners to help her go and stopped the percoset which helped her a bit. Pt has s/p cholecystectomy, but still has her appendix. 12/21: Pt seen examined, had CT Abdomen done yesterday, noted to have large diverticulium with diverticulitis, Gen surg consulted, advised IV ABX and close monitoring. Appreciate consult. Patient reports that the lung findings she has are chronic and she has had a lung biopsy for same. Pt is now on cipro and flagyl for Abdominal source. Plan is for CT scan abdo and pelvis on Tuesday to evaluate the diverticulitis. She is still nauseas, but pain is better. No vomiting. 12/22: Pt seen examined, pt was drowsy last night needing oxygen, etiology? drug related vs infection. WBC count is up today, CT scan abdomen done, read pending. Patient this AM still has nausea, Abdominal pain is better. She still has loose stools. December 23: this patient had a left total knee replacement on December 14, 2016. She was discharged around December 17. hortly after, she felt that she developed constipation. She took bowel meds, and this was followed by the onset of nausea , vomiting, diarrhea. She presented to the emergency room on December 20, with abdominal pain, nausea and vomiting. workup actually showed diverticulitis, with a very large, 3 cm, diverticulum. Dr. Hayden of general surgery was then consulted. He suggested continuing IV antibiotics and bowel rest . CT scan yesterday looked improved, so a clear liquid diet was started. today, the patient notes she really is not feeling very well at all. She has significant nausea, and feels that her abdomen is more uncomfortable. She also feels a little bit feverish and chilled at times. She has not vomited. She has had several loose stools, and C. difficile screen has been negative. She denies headaches or dizziness, sore throat or cough, chest pain or palpitations, shortness of breath, dysuria. December 24: the patient has continued to have abdominal discomfort overnight and this morning, as well as ongoing nausea. She did have an upper endoscopy this morning with Dr. Hayden, which showed severe gastritis and retention of bile and marked gastroparesis. otherwise, she denied fever or chills, headaches or dizziness, chest pain or shortness of breath, rectal bleeding, dysuria. December 25: today, the patient says she is feeling quite a bit better. She is having much less abdominal discomfort, and says she is feeling hungry. 1 bottle of her blood cultures is now growing a gram-positive daina . The patient denies fever or chills, sinus symptoms, sore throat, cough or shortness of breath. She is no longer having nausea or vomiting, or diarrhea. She denies dysuria. -he is now on Protonix plus Carafate for her gastritis and is definitely feeling better. - Constitutional Vitals: Vital Signs Temp Pulse Resp BP Pulse Ox 97.5 F 78 20 150/79 94 12/25/16 07:51 12/25/16 01:32 12/25/16 07:51 12/25/16 07:51 12/25/16 07:51 Period Temp Pulse Resp BP Sys/Mcdonough Pulse Ox Last 24 Hr 97.5 F-98.5 F 61-78 16-20 108-159/76-88 91-95 Intake and Output 12/24/16 12/25/16 12/25/16 21:59 05:59 13:59 Intake Total 100 / 100 1300 / 1300 Output Total 200 / 200 Balance 100 / 100 1100 / 1100 Weight 163 lb Intake & Output: Intake & Output 12/24/16 12/25/16 12/25/16 21:59 05:59 13:59 Intake Total 100 / 100 1300 / 1300 Output Total 200 / 200 Balance 100 / 100 1100 / 1100 Weight 163 lb Intake: IV 100 / 100 1300 / 1300 Sodium Chloride 0.9% 1, 1000 / 1000 000 ml @ 125 mls/hr IV . Q8H KACEY Rx#:[id number] Oral 0 / 0 Output: Void Amount 200 / 200 Other: # Voids 1 on exam, she is sitting up in a chair, smiling. Neck shows no obvious JVD or lymphadenopathy. cardiac exam: Shows regular rate and rhythm. Lungs are clear to auscultation. Abdomen is soft, and without obvious tenderness. There is no guarding or rebound. Bowel sounds are active. Extremities: Her left lower extremity still has a fair amount of swelling and bruising, but the incision over her knee appears well healed. Neurologic exam: Is grossly nonfocal. Medical - PN: Obj Da - Labs CBC & Chem 7: 12/25/16 04:54 12/25/16 04:54 Labs: Abnormal Lab Results 12/25/16 12/25/16 12/24/16 04:54 04:54 04:40 WBC 11.9 H RBC 3.67 L Hgb Hct MCV MCH MPV 7.3 L Gran % 86.9 H Lymph % (Auto) 7.6 L Gran # 10.3 H Lymph # 0.9 L Potassium 2.9 L* Chloride Carbon Dioxide 21 L 21 L Anion Gap 18.0 H 17.0 H BUN 4 L 4 L Creatinine 0.4 L 0.5 L Glucose 175 H 196 H Calcium 8.1 L 8.3 L Phosphorus 2.5 L 2.4 L Magnesium 1.4 L Total Bilirubin 1.1 H GGT 37 H Lactate Dehydrogenase 396 H 467 H Triglycerides 167 H 12/24/16 12/23/16 12/23/16 04:40 04:20 04:20 WBC 11.8 H RBC 3.61 L 3.41 L Hgb 11.6 L Hct 33.9 L MCV 100.1 H MCH 34.4 H 34.2 H MPV 7.2 L 7.3 L Gran % 87.1 H Lymph % (Auto) 8.0 L Gran # 10.3 H Lymph # 0.9 L Potassium 3.1 L Chloride 109 H Carbon Dioxide 21 L Anion Gap BUN 4 L Creatinine 0.5 L Glucose 130 H Calcium 8.5 L Phosphorus 2.3 L Magnesium Total Bilirubin 1.2 H GGT Lactate Dehydrogenase 402 H Triglycerides 157 H December 25: 1 anaerobic bottle of the blood cultures is now growing a gram- positive bacillus. ID to follow. December 22: -c. difficile screen is negative. -CT scan of the abdomen: market improvement of focal diverticulitis in the proximal transverse colon. Minimal residual pericolonic inflammation. december 20: Abdominal CT: Giant inflames diverticuli projecting from the proximal transverse colon, without evidence of abscess. December 19: - Blood cultures are negative so far -EKG: Shows sinus rhythm at a rate of 68. Left atrial enlargement. Probable old anteroseptal PA, with slow R-wave progression. -left lower extremity venous Doppler: 6 cm fluid collection into the popliteal fossa, likely a postop seroma -CT angios the chest: no pulmonary emboli. Mild groundglass alveolar infiltrates in both lower lobes, as well as honeycombing and mild interstitial fibrosis in the upper lobes. Possible early stage of usual interstitial pneumonia (idiopathic pulmonary fibrosis0. Consider also chronic hypersensitivity reaction and pneumonia. Mild atherosclerotic heart coronary artery disease. -chest x-ray: Lungs are clear, normal chest x-ray. abdominal x-ray appeared normal. Meds: Medications Albuterol/Ipratropium (Duoneb) 3 ml NEB Q4HRT PRN PRN Reason: Shortness Of Breath Or Wheezing Dextrose (Dextrose 50%) 0 ml IV UD PRN PRN Reason: Hypoglycemia Diagnostic Test (Pha) (Accu-Chek) 1 each FS ACHS [facility], [facility] Last Admin: 12/25/16 07:27 Dose: 1 each Ciprofloxacin (Cipro) 400 mg in 200 mls @ 200 mls/hr IV Q12H [facility] Last Admin: 12/25/16 08:57 Dose: 200 mls/hr Metronidazole (Flagyl) 500 mg in 100 mls @ 100 mls/hr IV Q8H [facility] Last Admin: 12/25/16 06:03 Dose: 100 mls/hr Sodium Chloride (Sodium Chloride 0.9%) 1,000 mls @ 125 mls/hr IV .Q8H [facility] Last Admin: 12/25/16 06:08 Dose: 125 mls/hr Potassium Chloride 40 meq/ (Dextrose) 520 mls @ 130 mls/hr IV ONCE ONE Stop: 12/25/16 12:21 Last Admin: 12/25/16 10:33 Dose: 130 mls/hr Piperacillin Sod/Tazobactam (Sod 3.375 gm/ Dextrose) 50 mls @ 100 mls/hr IV Q6H [facility] Last Admin: 12/25/16 11:20 Dose: 100 mls/hr Insulin Human Lispro (Humalog) 0 unit SQ ACHS [facility]1983 PRN Reason: Protocol Last Admin: 12/25/16 07:52 Dose: 2 unit Levothyroxine Sodium (Synthroid) 25 mcg PO QAMAC [facility] Last Admin: 12/25/16 07:31 Dose: Not Given Levothyroxine Sodium (Synthroid) 112 mcg PO QAMAC [facility] Last Admin: 12/25/16 07:31 Dose: Not Given Metoclopramide HCl (Reglan) 10 mg IV Q6 [facility] Last Admin: 12/25/16 06:03 Dose: 10 mg Mirtazapine (Remeron) 45 mg PO HS [facility] Last Admin: 12/24/16 21:11 Dose: 45 mg Morphine Sulfate (Morphine) 1 - 2 mg IV Q3HP PRN PRN Reason: Pain Last Admin: 12/25/16 07:40 Dose: 1 mg Naloxone HCl (Narcan) 0.1 mg IV Q2MIN PRN PRN Reason: Opiate Reversal Ondansetron HCl (Zofran) 4 mg IV Q4-6HP PRN PRN Reason: Nausea And Vomiting Last Admin: 12/25/16 07:52 Dose: 4 mg Pantoprazole Sodium (Protonix) 40 mg IV BIDAC [facility] Last Admin: 12/25/16 07:26 Dose: 40 mg Promethazine HCl (Phenergan) 12.5 mg IV Q6HP PRN PRN Reason: Nausea And Vomiting Simvastatin (Zocor) 20 mg PO HS [facility] Last Admin: 12/24/16 21:11 Dose: 20 mg Sodium Chloride (Saline Flush) 10 ml IV Q8 [facility] Last Admin: 12/25/16 06:04 Dose: Not Given Sucralfate (Carafate) 1 gm PO Q6 [facility] Last Admin: 12/25/16 06:03 Dose: 1 gm Trazodone HCl (Desyrel) 50 mg PO HS [facility] Last Admin: 12/24/16 21:11 Dose: 50 mg Medical - PN: A/P - Time Spent With Patient Total time spent is greater than 50% in coordination of care (as documented) at patient's floor/unit and/or counseling patient: 25 - 35 minutes - Narrative A/P Narrative: #1. GI/infectious disease. -Patient presented with signs and symptoms of diverticulitis. she initially improved with IV antibiotics, but then had recurrent upper abdominal pain. Upper endoscopy showed severe gastroparesis and bile retention. she is now on oral sucralfate plus IV Protonix. Biopsies are pending. -Continue Reglan for gastroparesis. -GI symptoms are much improved. Dr. Hayden has started advancing her diet. -one bottle of the blood cultures is now growing a gram-positive bacillus . Sensitivities are pending. Hopefully Flagyl will cover this, but I will also add Zosyn today, to give her more coverage for anaerobes -continue IV ciprofloxacin and Flagyl. -continue anti-emetics. -replace phosphorus when taking by mouth well #2. Neurologic. -Patient apparently had some confusion few nights ago, and this was thought due to a combination of Dilaudid and Phenergan. These were held and the patient now seems quite alert and neurologically intact. #3.Renal. Hypokalemia: -potassium is low again today, presumably due to her intermittent diarrhea. This was replaced IV. We will recheck again this afternoon. -Replace magnesium IV 34.Dm: -blood sugars running in the 153-161 range. Continue sliding scale insulin. -metformin is on hold as well. - Amaryl is also on hold. #5.HTN: BP stable, monitor. meds on hold (losartan) -- resume when taking by mouth well. 36. HLD: continue statin #7.DVT: hep sq #8. Code: Full #9. History of depression/insomnia. - Continue when necessary trazodone. continue mirtazapine. -resume Celexa when able. #10. Status post left total knee replacement. She has been doing well with physical therapy. Continue Percocet prn Morphine was discontinued regarding nausea. #11. Postop anemia: Oral iron replacement is on hold as well. approximately 30 minutes has been spent so far today, reviewing the patient's chart, reviewing test results, interviewing and examining her, touching base with Dr. Hayden about antibiotics, reviewing plan of care with staff. Medical - PN: Qual - VTE Deep Vein Thrombosis/Pulmonary Embolism Present on Admission: No
--- NOTE | 2016-12-25 11:42 | General Surgery Progress Note ---
Subjective Patient reports: feels better, pain is less, flatus, bowel movement, afebrile Narrative: Note initiated : 12/25/16 at 11:40 am Service Date, if different from initiated Date: [] Patient: Unique Spencer 51 y/o F admitted on 12/20/16 for Shortness of Breath, Vomiting/Gastroenteritis, PNA. Chief Complaint: [Mrs. Spencer is actually better than yesterday. She complains of gagging but she has not had any witnessed nausea or vomiting. She states that the nausea lasts a few minutes and is temporally related to her morphine sulfate injections. In between times she feels well. Her abdominal pain is fairly well controlled and she has been taken the morphine sulfate for her knee pain. She has had flatus with small bowel movements] Objective Temp Pulse Resp BP Pulse Ox 98.2 F 78 18 149/85 95 12/25/16 11:35 12/25/16 01:32 12/25/16 11:35 12/25/16 11:35 12/25/16 11:35 - Additional Data Intake & Output - Last 24 hours: Intake & Output 12/23/16 12/24/16 12/25/16 12/26/16 05:59 05:59 05:59 05:59 Intake Total 3900 / 3900 2390 / 2390 2600 / 2600 Output Total 4100 / 4100 2550 / 2550 800 / 800 Balance -200 / -200 -160 / -160 1800 / 1800 Weight 171 lb 8 oz 165 lb 8 oz 163 lb - General physical appearance no distress - Eyes PERRL - ENT normal pinna, normal nares, normal mucosa, decreased hearing - Neck no masses, no venous distension - Respiratory normal expansion, normal respiratory effort, clear to percussion, clear to auscultation - Cardiovascular Cardiovascular exam: Present: normal rate and rhythm, RRR, +S1, +S2 - Abdomen non tender, distended (Abdomen is mildly distended but is actually quite unremarkable to palpation and she has good active bowel sounds she no longer has epigastric tenderness) - Integumentary no rash, no growths, no abnormal pigmentation - Neurologic normal coordination, normal sensation - Musculoskeletal normal gait, normal posture - Psychiatric oriented to time, oriented to person, oriented to place, speech is normal, memory intact - Labs 12/25/16 04:54 12/25/16 04:54 Diabetes panel 12/25/16 Range/Units 04:54 Sodium 138 (133-145) mmol/L Potassium 2.9 L* (3.3-5.1) mmol/L Chloride 99 (96-108) mmol/L Carbon Dioxide 21 L (22-30) mmol/L BUN 4 L (6-20) mg/dl Creatinine 0.4 L (0.6-1.1) mg/dl Glucose 175 H (70-105) mg/dL Calcium 8.1 L (8.6-10.4) mg/dl AST 22 (0-37) U/l ALT 12 (0-40) U/l Alkaline Phosphatase 70 (39-117) U/L Total Protein 6.4 (5.9-8.4) gm/dL Albumin 3.4 (3.2-5.2) gm/dL Triglycerides 127 (<150) mg/dl Calcium panel 12/25/16 Range/Units 04:54 Calcium 8.1 L (8.6-10.4) mg/dl Phosphorus 2.5 L (2.7-4.5) mg/dL Albumin 3.4 (3.2-5.2) gm/dL Pituitary panel 12/25/16 Range/Units 04:54 Sodium 138 (133-145) mmol/L Potassium 2.9 L* (3.3-5.1) mmol/L Chloride 99 (96-108) mmol/L Carbon Dioxide 21 L (22-30) mmol/L BUN 4 L (6-20) mg/dl Creatinine 0.4 L (0.6-1.1) mg/dl Glucose 175 H (70-105) mg/dL Calcium 8.1 L (8.6-10.4) mg/dl Adrenal panel 12/25/16 Range/Units 04:54 Sodium 138 (133-145) mmol/L Potassium 2.9 L* (3.3-5.1) mmol/L Chloride 99 (96-108) mmol/L Carbon Dioxide 21 L (22-30) mmol/L BUN 4 L (6-20) mg/dl Creatinine 0.4 L (0.6-1.1) mg/dl Glucose 175 H (70-105) mg/dL Calcium 8.1 L (8.6-10.4) mg/dl Total Bilirubin 1.0 (0.0-1.0) mg/dL AST 22 (0-37) U/l ALT 12 (0-40) U/l Alkaline Phosphatase 70 (39-117) U/L Total Protein 6.4 (5.9-8.4) gm/dL Albumin 3.4 (3.2-5.2) gm/dL Assessment and Plan (1) Diverticulitis large intestine Status: Acute Assessment and plan: Clinically stable at this time We will continue present meds except for morphine sulfate which will be discontinued Started on full liquid diet Apply scopolamine patch Current Visit: Yes (2) Diabetes mellitus Status: Acute Current Visit: Yes (3) Hypertension Status: Acute Current Visit: Yes (4) Depression Status: Acute Current Visit: Yes - Time Spent With Patient Total time spent is greater than 50% in coordination of care (as documented) at patient's floor/unit and/or counseling patient:
[2016-12-25] MEDS ORDERED: MEPERIDINE 25 MG/ML SYRINGE IV PRN (11:48)
[2016-12-25] MEDS ORDERED: SCOPOLAMINE 1 PATCH PATCH TOPICAL SCH (12:00)
[2016-12-25] MEDS ORDERED: MAGNESIUM SULFATE 2 GM/50 ML BAG IV ONE (15:23)
[2016-12-25 15:24] LABS: Blood Urea Nitrogen 4 mg/dl (6-20)
[2016-12-25] MEDS ORDERED: POTASSIUM CHLORIDE 80 MEQ in DEXTROSE 5% IN WATER 1,000 ML IV ONE (19:56)
[2016-12-25] MEDS: SIMVASTATIN 20 MG TABLET PO SCH (20:26)
[2016-12-25] MEDS: traZODone HCL 50 MG TABLET PO SCH (20:26)
[2016-12-25] MEDS: MIRTAZAPINE 15 MG TABLET PO SCH (20:26)
[2016-12-25] MEDS ORDERED: POTASSIUM CHLORIDE 20 MEQ/10 ML VIAL IV ONE (21:15)
[2016-12-26 05:37] LABS: Basophils # (Auto) 0 K/mcL (0.0-0.3); Basophils % (Auto) 0.3 % (0.0-2.0); Eosinophils # (Auto) 0.1 K/mcL (0.0-0.7); Eosinophils % (Auto) 0.4 % (0.0-7.0); Granulocytes % (Auto) 85.9 % (38.0-78.0); Lymphocytes # (Auto) 0.8 K/mcL (1.5-4.8); Mean Cell Volume 99.4 fL (80.0-100.0); Mean Corpuscular HGB Conc 34.5 g/dL (31.0-36.0); Mean Corpuscular Hemoglobin 34.3 pg (26.0-34.0); Monocytes # (Auto) 0.7 K/mcL (0.1-0.9); Monocytes % (Auto) 6.4 % (1.0-12.0); Platelet Count 296 K/mcL (140-440); Red Cell Distribution Width 14.3 % (11.5-14.5)
[2016-12-26] MEDS: METOCLOPRAMIDE 10 MG/2 ML VIAL IV SCH (05:38)
[2016-12-26] MEDS: metroNIDAZOLE 500 MG/100 ML BAG IV SCH ×3 (05:38→22:27)
[2016-12-26] MEDS: PIPERACILLIN SODIUM/TAZOBACTAM 3.375 GM in DEXTROSE 5% IN WATER 50 ML IV SCH ×3 (05:38→18:35)
[2016-12-26] MEDS: SUCRALFATE 1 GM/10 ML ORAL.SUSP PO SCH ×3 (05:38→17:14)
[2016-12-26] MEDS: 0.9 % SODIUM CHLORIDE 10 ML SYRINGE IV SCH ×3 (05:39→20:43)
[2016-12-26] MEDS: 0.9 % SODIUM CHLORIDE 1,000 ML IV SCH ×2 (05:39→12:26)
[2016-12-26 06:09] LABS: ALT/SGPT 11 U/l (0-40); Albumin 3.7 gm/dL (3.2-5.2); Albumin/Globulin Ratio 1.2 (1.0-2.3); Alkaline Phosphatase 73 U/L (39-117); Bilirubin,Direct 0.3 mg/dL (0.0-0.3); Blood Urea Nitrogen 5 mg/dl (6-20); Gamma Glutamyl Transpeptidase 31 U/L (5-36); Magnesium 1.8 mg/dL (1.6-2.5); Uric Acid 3.7 mg/dL (2.5-8.0)
[2016-12-26] MEDS: INSULIN LISPRO 1 UNIT/0.01 ML UNIT SQ SCH ×6 (07:20→20:40)
[2016-12-26] MEDS: CIPROFLOXACIN 400 MG/200 ML BAG IV SCH ×2 (09:44→20:42)
[2016-12-26] MEDS: PANTOPRAZOLE 40 MG VIAL IV SCH ×2 (09:44→17:05)
[2016-12-26] MEDS: LEVOTHYROXINE SODIUM 112 MCG TABLET PO SCH (09:45)
[2016-12-26] MEDS: LEVOTHYROXINE 25 MCG TABLET PO SCH (09:45)
[2016-12-26] MEDS ORDERED: ONDANSETRON ODT 4 MG TABLET SL PRN (10:42)
[2016-12-26] MEDS: METOCLOPRAMIDE 10 MG TABLET PO SCH ×3 (11:09→20:42)
--- NOTE | 2016-12-26 11:11 | General Surgery Progress Note ---
Subjective Patient reports: feels better, pain is less, tolerating liquids well, flatus, bowel movement, nausea, afebrile Narrative: Note initiated : 12/26/16 at 11:09 am Service Date, if different from initiated Date: [] Patient: Unique Spencer 51 y/o F admitted on 12/20/16 for Shortness of Breath, Vomiting/Gastroenteritis, PNA. Chief Complaint: [Mrs. Spencer continues to improve. She had some nausea last evening but is doing much better now. She is having regular bowel movements and is tolerating most of her diet. She denies any significant abdominal pain.] Objective Temp Pulse Resp BP Pulse Ox 98.6 F 73 20 139/70 90 12/26/16 07:27 12/26/16 04:00 12/26/16 07:27 12/26/16 07:27 12/26/16 07:27 - Additional Data Intake & Output - Last 24 hours: Intake & Output 12/24/16 12/25/16 12/26/16 12/27/16 05:59 05:59 05:59 05:59 Intake Total 2390 / 2390 2600 / 2600 1470 / 1470 Output Total 2550 / 2550 800 / 800 1400 / 1400 Balance -160 / -160 1800 / 1800 70 / 70 Weight 165 lb 8 oz 163 lb 161 lb 8 oz - General physical appearance well nourished, no distress, no pain - Eyes PERRL - ENT normal pinna, no congestion - Neck no venous distension - Respiratory normal expansion, normal respiratory effort, clear to auscultation - Cardiovascular Cardiovascular exam: Present: normal rate and rhythm, RRR, +S1, +S2. Absent: JVD - Abdomen soft, non tender, bowel sounds (Abdomen is soft with mild distention. She has good active bowel sounds. There is no palpable tenderness at this time.), distended - Neurologic normal coordination, normal sensation - Musculoskeletal normal gait - Psychiatric oriented to time - Labs 12/26/16 04:38 12/26/16 04:38 Diabetes panel 12/25/16 12/26/16 Range/Units 14:00 04:38 Sodium 136 139 (133-145) mmol/L Potassium 3.0 L 3.9 (3.3-5.1) mmol/L Chloride 99 102 (96-108) mmol/L Carbon Dioxide 22 24 (22-30) mmol/L BUN 4 L 5 L (6-20) mg/dl Creatinine 0.9 0.9 (0.6-1.1) mg/dl Glucose 147 H 263 H (70-105) mg/dL Calcium 8.3 L 9.2 (8.6-10.4) mg/dl AST 24 (0-37) U/l ALT 11 (0-40) U/l Alkaline Phosphatase 73 (39-117) U/L Total Protein 6.8 (5.9-8.4) gm/dL Albumin 3.7 (3.2-5.2) gm/dL Triglycerides 94 (<150) mg/dl Calcium panel 12/25/16 12/26/16 Range/Units 14:00 04:38 Calcium 8.3 L 9.2 (8.6-10.4) mg/dl Phosphorus 2.8 (2.7-4.5) mg/dL Albumin 3.7 (3.2-5.2) gm/dL Pituitary panel 12/25/16 12/26/16 Range/Units 14:00 04:38 Sodium 136 139 (133-145) mmol/L Potassium 3.0 L 3.9 (3.3-5.1) mmol/L Chloride 99 102 (96-108) mmol/L Carbon Dioxide 22 24 (22-30) mmol/L BUN 4 L 5 L (6-20) mg/dl Creatinine 0.9 0.9 (0.6-1.1) mg/dl Glucose 147 H 263 H (70-105) mg/dL Calcium 8.3 L 9.2 (8.6-10.4) mg/dl Adrenal panel 12/25/16 12/26/16 Range/Units 14:00 04:38 Sodium 136 139 (133-145) mmol/L Potassium 3.0 L 3.9 (3.3-5.1) mmol/L Chloride 99 102 (96-108) mmol/L Carbon Dioxide 22 24 (22-30) mmol/L BUN 4 L 5 L (6-20) mg/dl Creatinine 0.9 0.9 (0.6-1.1) mg/dl Glucose 147 H 263 H (70-105) mg/dL Calcium 8.3 L 9.2 (8.6-10.4) mg/dl Total Bilirubin 1.1 H (0.0-1.0) mg/dL AST 24 (0-37) U/l ALT 11 (0-40) U/l Alkaline Phosphatase 73 (39-117) U/L Total Protein 6.8 (5.9-8.4) gm/dL Albumin 3.7 (3.2-5.2) gm/dL Assessment and Plan (1) Diverticulitis large intestine Status: Acute Assessment and plan: Clinically stable at this time Switch to oral medications and start carbohydrate consistent diet with diabetic coverage ;saline lock IV Current Visit: Yes (2) Diabetes mellitus Status: Acute Assessment and plan: Start oral Amaryl and continue sliding scale coverage Current Visit: Yes (3) Hypertension Status: Acute Current Visit: Yes (4) Depression Status: Acute Current Visit: Yes - Time Spent With Patient Total time spent is greater than 50% in coordination of care (as documented) at patient's floor/unit and/or counseling patient:
--- NOTE | 2016-12-26 11:31 | Internal Med Progress Note ---
Medical - PN: Subj Patient information: Note initiated : 12/26/16 at 11:31 am Patient: Unique Spencer 51 y/o F admitted on 12/20/16 for Shortness of Breath, Vomiting/Gastroenteritis, PNA. Interval history: December 20, 2016: History of present illness: Ms. Spencer is a 51 year old female with h/o asthma, DM, recent right TKA , presents to the hospital today with complaints of abdominal pain x 1 day. Nausea and vomiting . The patient notes that she was ok until this AM, and then she has sudden onset abdominal pain, predominantly in the mid, and right abdominal region, diffuse, burning type, moving up, intermittent in nature. The pain lasts for 5-10 mins once it comes then subsides but does not go away. The patients pain is associated with significant nausea and vomiting. She denies any aggravating or releving factor for her pain. In the ER the patient has mild leucocytosis, and gievn her h/o recent SX she underwent a CTA chest which is neg for PE, but did show early pulmonary fibrosis vs infiltrate. Pt has no respiratory symptoms, The patient K was 3.2, X ray of Abdomen is negative. LFT neg, Pt has TKA done last month, and was taking narcotic pain medication for pain management. She had some constipation and she took 3 pills of OTC stool softeners to help her go and stopped the percoset which helped her a bit. Pt has s/p cholecystectomy, but still has her appendix. 12/21: Pt seen examined, had CT Abdomen done yesterday, noted to have large diverticulium with diverticulitis, Gen surg consulted, advised IV ABX and close monitoring. Appreciate consult. Patient reports that the lung findings she has are chronic and she has had a lung biopsy for same. Pt is now on cipro and flagyl for Abdominal source. Plan is for CT scan abdo and pelvis on Tuesday to evaluate the diverticulitis. She is still nauseas, but pain is better. No vomiting. 12/22: Pt seen examined, pt was drowsy last night needing oxygen, etiology? drug related vs infection. WBC count is up today, CT scan abdomen done, read pending. Patient this AM still has nausea, Abdominal pain is better. She still has loose stools. December 23: this patient had a left total knee replacement on December 14, 2016. She was discharged around December 17. hortly after, she felt that she developed constipation. She took bowel meds, and this was followed by the onset of nausea , vomiting, diarrhea. She presented to the emergency room on December 20, with abdominal pain, nausea and vomiting. workup actually showed diverticulitis, with a very large, 3 cm, diverticulum. Dr. Hayden of general surgery was then consulted. He suggested continuing IV antibiotics and bowel rest . CT scan yesterday looked improved, so a clear liquid diet was started. today, the patient notes she really is not feeling very well at all. She has significant nausea, and feels that her abdomen is more uncomfortable. She also feels a little bit feverish and chilled at times. She has not vomited. She has had several loose stools, and C. difficile screen has been negative. She denies headaches or dizziness, sore throat or cough, chest pain or palpitations, shortness of breath, dysuria. December 24: the patient has continued to have abdominal discomfort overnight and this morning, as well as ongoing nausea. She did have an upper endoscopy this morning with Dr. Hayden, which showed severe gastritis and retention of bile and marked gastroparesis. otherwise, she denied fever or chills, headaches or dizziness, chest pain or shortness of breath, rectal bleeding, dysuria. December 25: today, the patient says she is feeling quite a bit better. She is having much less abdominal discomfort, and says she is feeling hungry. 1 bottle of her blood cultures is now growing a gram-positive daina . The patient denies fever or chills, sinus symptoms, sore throat, cough or shortness of breath. She is no longer having nausea or vomiting, or diarrhea. She denies dysuria. -he is now on Protonix plus Carafate for her gastritis and is definitely feeling better. December 26: -today, the patient again says she is feeling better. She did have a full liquid diet yesterday, and then had nausea and vomiting around midnight. She did not feel ready to have breakfast, so skipped that today. She is looking forward to a soft diet for lunch. She is still a bit nauseated this morning. -Otherwise,she denies significant abdominal pain fever or chills. she denies headaches or dizziness, sore throat or cough, chest pain or shortness of breath, diarrhea or constipation, or dysuria. - Constitutional Vitals: Vital Signs Temp Pulse Resp BP Pulse Ox 98.6 F 73 20 139/70 90 12/26/16 07:27 12/26/16 04:00 12/26/16 07:27 12/26/16 07:27 12/26/16 07:27 Period Temp Pulse Resp BP Sys/Mcdonough Pulse Ox Last 24 Hr 98.0 F-98.6 F 65-73 16-20 138-173/63-85 90-96 Intake and Output 12/25/16 12/26/16 12/26/16 21:59 05:59 13:59 Intake Total 700 / 700 300 / 300 Output Total 1400 / 1400 Balance 700 / 700 -1100 / -1100 Weight 161 lb 8 oz Intake & Output: Intake & Output 12/25/16 12/26/16 12/26/16 21:59 05:59 13:59 Intake Total 700 / 700 300 / 300 Output Total 1400 / 1400 Balance 700 / 700 -1100 / -1100 Weight 161 lb 8 oz Intake: IV 400 / 400 150 / 150 Zosyn 3.375 gm In 100 / 100 50 / 50 Dextrose 5% in Water 50 ml @ 100 mls/hr IV Q6H KACEY Rx#:[id number] Oral 300 / 300 150 / 150 Output: Void Amount 1400 / 1400 Other: Meal Dinner Percent of Meal Consumed 100% # Voids 1 on exam, she is sitting up in a chair, smiling. Neck shows no obvious JVD or lymphadenopathy. cardiac exam: Shows regular rate and rhythm. Lungs are clear to auscultation. Abdomen is soft, and without obvious tenderness. There is no guarding or rebound. Bowel sounds are active. Extremities: Her left lower extremity still has a fair amount of swelling and bruising, but the incision over her knee appears well healed. Neurologic exam: Is grossly nonfocal. Medical - PN: Obj Da - Labs CBC & Chem 7: 12/26/16 04:38 12/26/16 04:38 Labs: Abnormal Lab Results 12/26/16 12/26/16 12/25/16 04:38 04:38 14:00 WBC 11.7 H RBC 3.90 L MCV MCH 34.3 H MPV 7.2 L Gran % 85.9 H Lymph % (Auto) 7.0 L Gran # 10.0 H Lymph # 0.8 L Potassium 3.0 L Carbon Dioxide Anion Gap BUN 5 L 4 L Creatinine Glucose 263 H 147 H Calcium 8.3 L Phosphorus Magnesium Total Bilirubin 1.1 H GGT Lactate Dehydrogenase 420 H Triglycerides 12/25/16 12/25/16 12/24/16 04:54 04:54 04:40 WBC 11.9 H RBC 3.67 L MCV MCH MPV 7.3 L Gran % 86.9 H Lymph % (Auto) 7.6 L Gran # 10.3 H Lymph # 0.9 L Potassium 2.9 L* Carbon Dioxide 21 L 21 L Anion Gap 18.0 H 17.0 H BUN 4 L 4 L Creatinine 0.4 L 0.5 L Glucose 175 H 196 H Calcium 8.1 L 8.3 L Phosphorus 2.5 L 2.4 L Magnesium 1.4 L Total Bilirubin 1.1 H GGT 37 H Lactate Dehydrogenase 396 H 467 H Triglycerides 167 H 12/24/16 04:40 WBC 11.8 H RBC 3.61 L MCV 100.1 H MCH 34.4 H MPV 7.2 L Gran % 87.1 H Lymph % (Auto) 8.0 L Gran # 10.3 H Lymph # 0.9 L Potassium Carbon Dioxide Anion Gap BUN Creatinine Glucose Calcium Phosphorus Magnesium Total Bilirubin GGT Lactate Dehydrogenase Triglycerides December 26: Intake and output show she is about 3950 mL positive since admission December 25: 1 anaerobic bottle of the blood cultures is now growing a gram- positive bacillus. ID to follow. December 22: -c. difficile screen is negative. -CT scan of the abdomen: market improvement of focal diverticulitis in the proximal transverse colon. Minimal residual pericolonic inflammation. december 20: Abdominal CT: Giant inflames diverticuli projecting from the proximal transverse colon, without evidence of abscess. December 19: - Blood cultures are negative so far -EKG: Shows sinus rhythm at a rate of 68. Left atrial enlargement. Probable old anteroseptal [place], with slow R-wave progression. -left lower extremity venous Doppler: 6 cm fluid collection into the popliteal fossa, likely a postop seroma -CT angios the chest: no pulmonary emboli. Mild groundglass alveolar infiltrates in both lower lobes, as well as honeycombing and mild interstitial fibrosis in the upper lobes. Possible early stage of usual interstitial pneumonia (idiopathic pulmonary fibrosis0. Consider also chronic hypersensitivity reaction and pneumonia. Mild atherosclerotic heart coronary artery disease. -chest x-ray: Lungs are clear, normal chest x-ray. abdominal x-ray appeared normal. Meds: Medications Albuterol/Ipratropium (Duoneb) 3 ml NEB Q4HRT PRN PRN Reason: Shortness Of Breath Or Wheezing Dextrose (Dextrose 50%) 0 ml IV UD PRN PRN Reason: Hypoglycemia Diagnostic Test (Pha) (Accu-Chek) 1 each FS ACHS [facility] Last Admin: 12/26/16 07:16 Dose: 1 each Glimepiride (Amaryl) 2 mg PO QAMAC [facility] Ciprofloxacin (Cipro) 400 mg in 200 mls @ 200 mls/hr IV Q12H [facility] Last Admin: 12/26/16 09:44 Dose: 200 mls/hr Metronidazole (Flagyl) 500 mg in 100 mls @ 100 mls/hr IV Q8H [facility] Last Admin: 12/26/16 05:38 Dose: 100 mls/hr Piperacillin Sod/Tazobactam (Sod 3.375 gm/ Dextrose) 50 mls @ 100 mls/hr IV Q6H [facility] Last Admin: 12/26/16 05:38 Dose: 100 mls/hr Insulin Human Lispro (Humalog) 0 unit SQ [facility] PRN Reason: Protocol Last Admin: 12/26/16 07:20 Dose: 6 unit Levothyroxine Sodium (Synthroid) 25 mcg PO [facility] Last Admin: 12/26/16 09:45 Dose: Not Given Levothyroxine Sodium (Synthroid) 112 mcg PO [facility] Last Admin: 12/26/16 09:45 Dose: Not Given Meperidine HCl (Demerol) 25 mg IV Q4-6HP PRN PRN Reason: Pain Metoclopramide HCl (Reglan) 10 mg PO ACHS [facility] Last Admin: 12/26/16 11:09 Dose: 10 mg Mirtazapine (Remeron) 45 mg PO [facility] Last Admin: 12/25/16 20:26 Dose: 45 mg Naloxone HCl (Narcan) 0.1 mg IV Q2MIN PRN PRN Reason: Opiate Reversal Non-Formulary Medication (Insulin Aspart [Novolog]) 3 unit SQ TIDAC [facility] Ondansetron HCl (Zofran Odt) 4 mg SL Q6HP PRN PRN Reason: Nausea And Vomiting Last Admin: 12/26/16 11:09 Dose: 4 mg Pantoprazole Sodium (Protonix) 40 mg IV BIDAC [facility] Last Admin: 12/26/16 09:44 Dose: 40 mg Promethazine HCl (Phenergan) 12.5 mg IV Q6HP PRN PRN Reason: Nausea And Vomiting Scopolamine (Transderm-Scop) 1 patch TOPICAL Q72H [facility] Last Admin: 12/25/16 12:04 Dose: 1 patch Simvastatin (Zocor) 20 mg PO HS [facility] Last Admin: 12/25/16 20:26 Dose: 20 mg Sodium Chloride (Saline Flush) 10 ml IV Q8 [facility] Last Admin: 12/26/16 05:39 Dose: Not Given Sucralfate (Carafate) 1 gm PO Q6 [facility] Last Admin: 12/26/16 11:09 Dose: 1 gm Trazodone HCl (Desyrel) 50 mg PO [facility] Last Admin: 12/25/16 20:26 Dose: 50 mg Medical - PN: A/P - Time Spent With Patient Total time spent is greater than 50% in coordination of care (as documented) at patient's floor/unit and/or counseling patient: 25 - 35 minutes - Narrative A/P Narrative: #1. GI/infectious disease. -Patient presented with signs and symptoms of diverticulitis. she initially improved with IV antibiotics, but then had recurrent upper abdominal pain. Upper endoscopy showed severe gastroparesis and bile retention. -she is now on oral sucralfate plus IV Protonix. Biopsies are pending. -Continue Reglan for gastroparesis. -GI symptoms are much improved Re: Abdominal pain, but the patient did have recurrent nausea and vomiting around midnight. She will try a soft diet again for lunch, and see how that goes. -one bottle of the blood cultures is now growing a gram-positive bacillus . Sensitivities are pending. Hopefully Flagyl will cover this, but I added Zosyn today, to give her more coverage for anaerobes -continue IV ciprofloxacin and Flagyl. -unfortunately her white blood cell count remains elevated for uncertain reasons. -continue anti-emetics. -replace phosphorus when taking by mouth well #2. Neurologic. -Patient apparently had some confusion few nights ago, and this was thought due to a combination of Dilaudid and Phenergan. These were held and the patient now seems quite alert and neurologically intact. #3.Renal. Hypokalemia: -she received a total of 120 mEq of potassium over the course of yesterday. potassium is improved today. Continue to monitor. - magnesium was also low, and was replaced IV. This is also improved. 34.Dm: -blood sugars running in the 159-217 range. Continue sliding scale insulin. -metformin is on hold as well. - Amaryl with resumed. #5.HTN: BP stable, monitor. meds on hold (losartan) -- resume when taking by mouth well. 36. HLD: continue statin #7.DVT: hep sq #8. Code: Full #9. History of depression/insomnia. - Continue when necessary trazodone. continue mirtazapine. -resume Celexa when able. #10. Status post left total knee replacement. She has been doing well with physical therapy. Continue Percocet prn Morphine was discontinued regarding nausea. #11. Postop anemia: Oral iron replacement is on hold as well. approximately 30 minutes has been spent so far today, reviewing the patient's chart, reviewing test results, interviewing and examining her, touching base with her nurse, and writing orders. Medical - PN: Qual - VTE Deep Vein Thrombosis/Pulmonary Embolism Present on Admission: No
[2016-12-26] MEDS ORDERED: oxyCODONE/APAP 10/325MG TABLET PO PRN (14:47)
[2016-12-26] MEDS: SIMVASTATIN 20 MG TABLET PO SCH (20:42)
[2016-12-26] MEDS: MIRTAZAPINE 15 MG TABLET PO SCH (20:42)
[2016-12-26] MEDS: traZODone HCL 50 MG TABLET PO SCH (20:42)
[2016-12-27] MEDS: PIPERACILLIN SODIUM/TAZOBACTAM 3.375 GM in DEXTROSE 5% IN WATER 50 ML IV SCH ×3 (00:11→11:19)
[2016-12-27] MEDS: SUCRALFATE 1 GM/10 ML ORAL.SUSP PO SCH ×4 (00:13→18:00)
[2016-12-27] MEDS: 0.9 % SODIUM CHLORIDE 10 ML SYRINGE IV SCH ×2 (05:50→13:48)
[2016-12-27 06:01] LABS: ALT/SGPT 10 U/l (0-40); Albumin 3.5 gm/dL (3.2-5.2); Albumin/Globulin Ratio 1.1 (1.0-2.3); Alkaline Phosphatase 68 U/L (39-117); Bilirubin,Direct 0.3 mg/dL (0.0-0.3); Blood Urea Nitrogen 6 mg/dl (6-20); Gamma Glutamyl Transpeptidase 32 U/L (5-36); Magnesium 1.6 mg/dL (1.6-2.5); Uric Acid 3.1 mg/dL (2.5-8.0)
[2016-12-27 06:21] LABS: Basophils # (Auto) 0.1 K/mcL (0.0-0.3); Eosinophils # (Auto) 0.1 K/mcL (0.0-0.7); Granulocytes % (Auto) 65.7 % (38.0-78.0); Lymphocytes # (Auto) 2.8 K/mcL (1.5-4.8); Lymphocytes % (Auto) 22.8 % (15.5-49.0); Mean Cell Volume 96.6 fL (80.0-100.0); Mean Corpuscular HGB Conc 34.5 g/dL (31.0-36.0); Mean Corpuscular Hemoglobin 33.3 pg (26.0-34.0); Monocytes # (Auto) 1.2 K/mcL (0.1-0.9); Monocytes % (Auto) 9.5 % (1.0-12.0); Platelet Count 192 K/mcL (140-440); RBC 4.09 M/mcL (4.00-5.20)
[2016-12-27] MEDS: PANTOPRAZOLE 40 MG VIAL IV SCH ×2 (07:11→18:00)
[2016-12-27] MEDS: LEVOTHYROXINE SODIUM 112 MCG TABLET PO SCH (07:11)
[2016-12-27] MEDS: metroNIDAZOLE 500 MG/100 ML BAG IV SCH ×2 (07:11→13:47)
[2016-12-27] MEDS: LEVOTHYROXINE 25 MCG TABLET PO SCH (07:11)
[2016-12-27] MEDS: METOCLOPRAMIDE 10 MG TABLET PO SCH ×3 (07:11→16:50)
[2016-12-27] MEDS ORDERED: GLIMEPIRIDE 2 MG TABLET PO SCH (07:30)
[2016-12-27] MEDS: INSULIN LISPRO 1 UNIT/0.01 ML UNIT SQ SCH ×6 (08:04→18:00)
[2016-12-27] MEDS: CIPROFLOXACIN 400 MG/200 ML BAG IV SCH (09:26)
--- NOTE | 2016-12-27 11:19 | Surgical Pathology Report ---
HISTOLOGY SPECIMEN MICROSCOPIC DIAGNOSIS STOMACH, BIOPSY: -- CHRONIC GASTRITIS WITH MILD ACTIVITY. -- NO HELICOBACTER ORGANISMS IDENTIFIED ON ALCIAN YELLOW STAIN (ADEQUATE TECHNICAL CONTROL). (DMT:[email or web address]) GROSS DESCRIPTION Received in formalin labeled gastric biopsy, are two pink-henry tissue fragments 0.2 and 0.3 cm. Totally submitted - one cassette. (STM:[email or web address]) Electronically Signed by: Jimi Batres M.D.
--- NOTE | 2016-12-27 11:29 | Internal Med Progress Note ---
Medical - PN: Subj Patient information: Note initiated : 12/27/16 at 11:29 am Service Date, if different from initiated Date: [] Patient: Unique Spencer a 51 y/o F admitted on 12/20/16 for Shortness of Breath, Vomiting/Gastroenteritis, PNA. Chief Complaint: [] Interval history: December 20, 2016: History of present illness: Ms. Spencer is a 51 year old female with h/o asthma, DM, recent right TKA , presents to the hospital today with complaints of abdominal pain x 1 day. Nausea and vomiting . The patient notes that she was ok until this AM, and then she has sudden onset abdominal pain, predominantly in the mid, and right abdominal region, diffuse, burning type, moving up, intermittent in nature. The pain lasts for 5-10 mins once it comes then subsides but does not go away. The patients pain is associated with significant nausea and vomiting. She denies any aggravating or releving factor for her pain. In the ER the patient has mild leucocytosis, and gievn her h/o recent SX she underwent a CTA chest which is neg for PE, but did show early pulmonary fibrosis vs infiltrate. Pt has no respiratory symptoms, The patient K was 3.2, X ray of Abdomen is negative. LFT neg, Pt has TKA done last month, and was taking narcotic pain medication for pain management. She had some constipation and she took 3 pills of OTC stool softeners to help her go and stopped the percoset which helped her a bit. Pt has s/p cholecystectomy, but still has her appendix. 12/21: Pt seen examined, had CT Abdomen done yesterday, noted to have large diverticulium with diverticulitis, Gen surg consulted, advised IV ABX and close monitoring. Appreciate consult. Patient reports that the lung findings she has are chronic and she has had a lung biopsy for same. Pt is now on cipro and flagyl for Abdominal source. Plan is for CT scan abdo and pelvis on Tuesday to evaluate the diverticulitis. She is still nauseas, but pain is better. No vomiting. 12/22: Pt seen examined, pt was drowsy last night needing oxygen, etiology? drug related vs infection. WBC count is up today, CT scan abdomen done, read pending. Patient this AM still has nausea, Abdominal pain is better. She still has loose stools. December 23: this patient had a left total knee replacement on December 14, 2016. She was discharged around December 17. hortly after, she felt that she developed constipation. She took bowel meds, and this was followed by the onset of nausea , vomiting, diarrhea. She presented to the emergency room on December 20, with abdominal pain, nausea and vomiting. workup actually showed diverticulitis, with a very large, 3 cm, diverticulum. Dr. Hayden of general surgery was then consulted. He suggested continuing IV antibiotics and bowel rest . CT scan yesterday looked improved, so a clear liquid diet was started. today, the patient notes she really is not feeling very well at all. She has significant nausea, and feels that her abdomen is more uncomfortable. She also feels a little bit feverish and chilled at times. She has not vomited. She has had several loose stools, and C. difficile screen has been negative. She denies headaches or dizziness, sore throat or cough, chest pain or palpitations, shortness of breath, dysuria. December 24: the patient has continued to have abdominal discomfort overnight and this morning, as well as ongoing nausea. She did have an upper endoscopy this morning with Dr. Hayden, which showed severe gastritis and retention of bile and marked gastroparesis. otherwise, she denied fever or chills, headaches or dizziness, chest pain or shortness of breath, rectal bleeding, dysuria. December 25: today, the patient says she is feeling quite a bit better. She is having much less abdominal discomfort, and says she is feeling hungry. 1 bottle of her blood cultures is now growing a gram-positive daina . The patient denies fever or chills, sinus symptoms, sore throat, cough or shortness of breath. She is no longer having nausea or vomiting, or diarrhea. She denies dysuria. -he is now on Protonix plus Carafate for her gastritis and is definitely feeling better. December 26: -today, the patient again says she is feeling better. She did have a full liquid diet yesterday, and then had nausea and vomiting around midnight. She did not feel ready to have breakfast, so skipped that today. She is looking forward to a soft diet for lunch. She is still a bit nauseated this morning. -Otherwise,she denies significant abdominal pain fever or chills. she denies headaches or dizziness, sore throat or cough, chest pain or shortness of breath, diarrhea or constipation, or dysuria. december 27: the patient reports that she became nauseated and vomited a small amount around midnight again last night. This morning, she took medications followed by a sip of milk. She then vomited what she describes as greenish fluid afterwards. She says after she vomited, her nausea resolved, and she was able to eat breakfast. Currently she says she feels fine, and denies nausea or abdominal pain. she thinks her stool was a little loose this morning, but denies any significant diarrhea. Otherwise she denies fever or chills, headaches or dizziness, chest pain or shortness of breath, dysuria. - Constitutional Vitals: Vital Signs Temp Pulse Resp BP Pulse Ox 97.8 F 73 18 134/84 93 12/27/16 07:45 12/27/16 04:00 12/27/16 07:45 12/27/16 07:45 12/27/16 07:45 Period Temp Pulse Resp BP Sys/Mcdonough Pulse Ox Last 24 Hr 97.3 F-98.6 F 68-82 14-20 110-163/62-89 90-97 Intake and Output 12/26/16 12/27/16 12/27/16 21:59 05:59 13:59 Intake Total 750 / 750 450 / 450 50 / 50 Output Total 175 / 175 800 / 800 200 / 200 Balance 575 / 575 -350 / -350 -150 / -150 Weight 167 lb 3.2 oz Intake & Output: Intake & Output 12/26/16 12/27/16 12/27/16 21:59 05:59 13:59 Intake Total 750 / 750 450 / 450 50 / 50 Output Total 175 / 175 800 / 800 200 / 200 Balance 575 / 575 -350 / -350 -150 / -150 Weight 167 lb 3.2 oz Intake: IV 350 / 350 150 / 150 50 / 50 Zosyn 3.375 gm In 50 / 50 50 / 50 50 / 50 Dextrose 5% in Water 50 ml @ 100 mls/hr IV Q6H [facility] Rx#:[id number] Oral 400 / 400 300 / 300 Output: Void Amount 175 / 175 800 / 800 Emesis 200 / 200 Other: Meal Dinner Breakfast Percent of Meal Consumed 100% 100% # Voids 1 she is sitting up in bed, and is quite animated, and says she is feeling quite a bit better at the moment. Neck shows no obvious JVD or lymphadenopathy. cardiac exam: Shows regular rate and rhythm. Lungs are clear to auscultation. Abdomen is soft, and without obvious tenderness. There is no guarding or rebound. Bowel sounds are active. Extremities: Her left lower extremity still has a fair amount of swelling and bruising, but the incision over her knee appears well healed. Neurologic exam: Is grossly nonfocal. Medical - PN: Obj Da - Labs CBC & Chem 7: 12/27/16 04:49 12/27/16 04:49 Labs: Abnormal Lab Results 12/27/16 12/27/16 12/27/16 06:15 04:49 04:49 WBC 12.5 H RBC MCH MPV 6.9 L Gran % Lymph % (Auto) Gran # 8.3 H Lymph # [place] # 1.2 H ESR 52 H Potassium Carbon Dioxide Anion Gap BUN Creatinine Glucose 178 H Calcium Phosphorus Magnesium Total Bilirubin Lactate Dehydrogenase 432 H 12/26/16 12/26/16 12/25/16 04:38 04:38 14:00 WBC 11.7 H RBC 3.90 L MCH 34.3 H MPV 7.2 L Gran % 85.9 H Lymph % (Auto) 7.0 L Gran # 10.0 H Lymph # 0.8 L [place] # ESR Potassium 3.0 L Carbon Dioxide Anion Gap BUN 5 L 4 L Creatinine Glucose 263 H 147 H Calcium 8.3 L Phosphorus Magnesium Total Bilirubin 1.1 H Lactate Dehydrogenase 420 H 12/25/16 12/25/16 04:54 04:54 WBC 11.9 H RBC 3.67 L MCH MPV 7.3 L Gran % 86.9 H Lymph % (Auto) 7.6 L Gran # 10.3 H Lymph # 0.9 L [place] # ESR Potassium 2.9 L* Carbon Dioxide 21 L Anion Gap 18.0 H BUN 4 L Creatinine 0.4 L Glucose 175 H Calcium 8.1 L Phosphorus 2.5 L Magnesium 1.4 L Total Bilirubin Lactate Dehydrogenase 396 H December 26: Intake and output show she is about 3950 mL positive since admission December 25: 1 anaerobic bottle of the blood cultures is now growing a gram- positive bacillus. ID to follow. December 22: -c. difficile screen is negative. -CT scan of the abdomen: market improvement of focal diverticulitis in the proximal transverse colon. Minimal residual pericolonic inflammation. december 20: Abdominal CT: Giant inflames diverticuli projecting from the proximal transverse colon, without evidence of abscess. December 19: - Blood cultures are negative so far -EKG: Shows sinus rhythm at a rate of 68. Left atrial enlargement. Probable old anteroseptal AR, with slow R-wave progression. -left lower extremity venous Doppler: 6 cm fluid collection into the popliteal fossa, likely a postop seroma -CT angios the chest: no pulmonary emboli. Mild groundglass alveolar infiltrates in both lower lobes, as well as honeycombing and mild interstitial fibrosis in the upper lobes. Possible early stage of usual interstitial pneumonia (idiopathic pulmonary fibrosis0. Consider also chronic hypersensitivity reaction and pneumonia. Mild atherosclerotic heart coronary artery disease. -chest x-ray: Lungs are clear, normal chest x-ray. abdominal x-ray appeared normal. Meds: Medications Albuterol/Ipratropium (Duoneb) 3 ml NEB Q4HRT PRN PRN Reason: Shortness Of Breath Or Wheezing Dextrose (Dextrose 50%) 0 ml IV UD PRN PRN Reason: Hypoglycemia Diagnostic Test (Pha) (Accu-Chek) 1 each FS ACHS [facility] Last Admin: 12/27/16 11:05 Dose: 1 each Glimepiride (Amaryl) 2 mg PO QAMAC [facility] Last Admin: 12/27/16 07:11 Dose: 2 mg Ciprofloxacin (Cipro) 400 mg in 200 mls @ 200 mls/hr IV Q12H [facility] Last Admin: 12/27/16 09:26 Dose: 200 mls/hr Metronidazole (Flagyl) 500 mg in 100 mls @ 100 mls/hr IV Q8H [facility] Last Admin: 12/27/16 07:11 Dose: 100 mls/hr Piperacillin Sod/Tazobactam (Sod 3.375 gm/ Dextrose) 50 mls @ 100 mls/hr IV Q6H [facility] Last Admin: 12/27/16 11:19 Dose: 100 mls/hr Insulin Human Lispro (Humalog) 0 unit SQ ACHS [facility] PRN Reason: Protocol Last Admin: 12/27/16 11:15 Dose: 2 unit Insulin Human Lispro (Humalog) 3 unit SQ TIDAC [facility] Last Admin: 12/27/16 11:15 Dose: 3 unit Levothyroxine Sodium (Synthroid) 25 mcg PO QAMAC [facility] Last Admin: 12/27/16 07:11 Dose: 25 mcg Levothyroxine Sodium (Synthroid) 112 mcg PO QAMAC [facility] Last Admin: 12/27/16 07:11 Dose: 112 mcg Metoclopramide HCl (Reglan) 10 mg PO ACHS [facility] Last Admin: 12/27/16 11:16 Dose: 10 mg Mirtazapine (Remeron) 45 mg PO HS [facility] Last Admin: 12/26/16 20:42 Dose: 45 mg Naloxone HCl (Narcan) 0.1 mg IV Q2MIN PRN PRN Reason: Opiate Reversal Ondansetron HCl (Zofran Odt) 4 mg SL Q6HP PRN PRN Reason: Nausea And Vomiting Last Admin: 12/26/16 11:09 Dose: 4 mg Oxycodone/Acetaminophen (Percocet 10-325mg) 1 tab PO Q4-6HP PRN PRN Reason: Pain Pantoprazole Sodium (Protonix) 40 mg IV BIDAC [facility] Last Admin: 12/27/16 07:11 Dose: 40 mg Promethazine HCl (Phenergan) 12.5 mg IV Q6HP PRN PRN Reason: Nausea And Vomiting Scopolamine (Transderm-Scop) 1 patch TOPICAL Q72H [facility] Last Admin: 12/25/16 12:04 Dose: 1 patch Simvastatin (Zocor) [address] [facility] Last Admin: 12/26/16 20:42 Dose: 20 mg Sodium Chloride (Saline Flush) 10 ml IV Q8 [facility] Last Admin: 12/27/16 05:50 Dose: 10 ml Sucralfate (Carafate) 1 gm PO Q6 [facility] Last Admin: 12/27/16 11:15 Dose: 1 gm Trazodone HCl (Desyrel) [address] [facility] Last Admin: 12/26/16 20:42 Dose: 50 mg Medical - PN: A/P - Time Spent With Patient Total time spent is greater than 50% in coordination of care (as documented) at patient's floor/unit and/or counseling patient: 15 - 24 minutes - Narrative A/P Narrative: #1. GI/infectious disease. -Patient presented with signs and symptoms of diverticulitis. she initially improved with IV antibiotics, but then had recurrent upper abdominal pain. Upper endoscopy showed severe gastroparesis and bile retention. -she is now on oral sucralfate plus IV Protonix. Biopsies are pending. -Continue Reglan for gastroparesis. -GI symptoms are much improved Re: Abdominal pain, but the patient did have recurrent nausea and vomiting around midnight and again this morning.. I touched base with Dr. Hayden, and he thinks we should continue to watch her in the hospital. It is unclear why she continues to have episodes of vomiting. -one bottle of the blood cultures is now growing a gram-positive bacillus . Sensitivities are pending. Hopefully Flagyl will cover this, but I added Zosyn , to give her more coverage for anaerobes -continue IV ciprofloxacin and Flagyl. -unfortunately her white blood cell count remains elevated for uncertain reasons. -continue anti-emetics. #2. Neurologic. -Patient apparently had some confusion few nights ago, and this was thought due to a combination of Dilaudid and Phenergan. These were held and the patient now seems quite alert and neurologically intact. #3.Renal. Hypokalemia: -resolved. - magnesium was also low, and was replaced IV. This is also improved. 34.Dm: -blood sugars running in the 159-217 range. Continue sliding scale insulin. -metformin is on hold as well. - Amaryl was resumed. #5.HTN: BP stable, monitor. meds on hold (losartan) -- resume when taking by mouth well. 36. HLD: continue statin #7.DVT: hep sq #8. Code: Full #9. History of depression/insomnia. - Continue when necessary trazodone. continue mirtazapine. -resume Celexa when able. #10. Status post left total knee replacement. She has been doing well with physical therapy. Continue Percocet prn Morphine was discontinued regarding nausea. #11. Postop anemia: Oral iron replacement is on hold as well. approximately 25 minutes has been spent so far today, reviewing the patient's chart, reviewing test results, interviewing and examining her, touching base with her nurse and Dr. Hayden, and writing orders. Medical - PN: Qual - VTE Deep Vein Thrombosis/Pulmonary Embolism Present on Admission: No
--- NOTE | 2016-12-27 15:55 | General Surgery Progress Note ---
Subjective Patient reports: feels better, pain is less, flatus, bowel movement, nausea, vomiting Narrative: Note initiated : 12/27/16 at 3:53 pm Service Date, if different from initiated Date: [] Patient: Unique Spencer 51 y/o F admitted on 12/20/16 for Shortness of Breath, Vomiting/Gastroenteritis, PNA. Chief Complaint: [The patient is generally stable. She had some small amount of emesis earlier today but was able to keep down her last 2 meals. She states that she feels fine and wishes to go home. She has been on adequate medication treatment for the past 7 days. She is stable for discharge and I will follow her up in the office weekly.] Objective Temp Pulse Resp BP Pulse Ox 98.0 F 77 18 138/81 93 12/27/16 15:37 12/27/16 15:37 12/27/16 15:37 12/27/16 15:37 12/27/16 15:37 - Additional Data Intake & Output - Last 24 hours: Intake & Output 12/25/16 12/26/16 12/27/16 12/28/16 05:59 05:59 05:59 05:59 Intake Total 2600 / 2600 1795 / 1795 1690 / 1690 150 / 150 Output Total 800 / 800 1400 / 1400 1100 / 1100 200 / 200 Balance 1800 / 1800 395 / 395 590 / 590 -50 / -50 Weight 163 lb 161 lb 8 oz 167 lb 3.2 oz 167 lb 3.2 oz - Labs 12/27/16 04:49 12/27/16 04:49 Diabetes panel 12/27/16 Range/Units 04:49 Sodium 137 (133-145) mmol/L Potassium 3.6 (3.3-5.1) mmol/L Chloride 99 (96-108) mmol/L Carbon Dioxide 24 (22-30) mmol/L BUN 6 (6-20) mg/dl Creatinine 0.8 (0.6-1.1) mg/dl Glucose 178 H (70-105) mg/dL Calcium 9.1 (8.6-10.4) mg/dl AST 25 (0-37) U/l ALT 10 (0-40) U/l Alkaline Phosphatase 68 (39-117) U/L Total Protein 6.7 (5.9-8.4) gm/dL Albumin 3.5 (3.2-5.2) gm/dL Triglycerides 93 (<150) mg/dl Calcium panel 12/27/16 Range/Units 04:49 Calcium 9.1 (8.6-10.4) mg/dl Phosphorus 4.3 (2.7-4.5) mg/dL Albumin 3.5 (3.2-5.2) gm/dL Pituitary panel 12/27/16 Range/Units 04:49 Sodium 137 (133-145) mmol/L Potassium 3.6 (3.3-5.1) mmol/L Chloride 99 (96-108) mmol/L Carbon Dioxide 24 (22-30) mmol/L BUN 6 (6-20) mg/dl Creatinine 0.8 (0.6-1.1) mg/dl Glucose 178 H (70-105) mg/dL Calcium 9.1 (8.6-10.4) mg/dl Adrenal panel 12/27/16 Range/Units 04:49 Sodium 137 (133-145) mmol/L Potassium 3.6 (3.3-5.1) mmol/L Chloride 99 (96-108) mmol/L Carbon Dioxide 24 (22-30) mmol/L BUN 6 (6-20) mg/dl Creatinine 0.8 (0.6-1.1) mg/dl Glucose 178 H (70-105) mg/dL Calcium 9.1 (8.6-10.4) mg/dl Total Bilirubin 1.0 (0.0-1.0) mg/dL AST 25 (0-37) U/l ALT 10 (0-40) U/l Alkaline Phosphatase 68 (39-117) U/L Total Protein 6.7 (5.9-8.4) gm/dL Albumin 3.5 (3.2-5.2) gm/dL Assessment and Plan (1) Diverticulitis large intestine Status: Acute Assessment and plan: Clinically stable at this time Switch to oral medications and start carbohydrate consistent diet with diabetic coverage ;saline lock IV Current Visit: Yes (2) Diabetes mellitus Status: Acute Assessment and plan: Start oral Amaryl and continue sliding scale coverage Current Visit: Yes (3) Hypertension Status: Acute Current Visit: Yes (4) Depression Status: Acute Current Visit: Yes - Time Spent With Patient Total time spent is greater than 50% in coordination of care (as documented) at patient's floor/unit and/or counseling patient:
== END 2016-12-27 17:49 | disposition home or self-care (01) | DRG 326 ==
LOC: ED 18:00 → MEDSUR 18:00 → SUATTDRO 12-20 15:18 → MEDSUR 12-20 16:58
PROVIDERS: ADMIT Internal Medicine; ATTEND Internal Medicine

== ENCOUNTER 2017-02-12 19:15 | Inpatient (IN) ==
[2017-02-12] MEDS ORDERED: IOPAMIDOL 100 ML BOTTLE IJ ONE (19:16)
[2017-02-12] MEDS ORDERED: HYDROmorphone 2 MG TABLET PO PRN (19:46)
[2017-02-12] MEDS ORDERED: 0.9 % SODIUM CHLORIDE 1,000 ML IV ONE (19:46)
[2017-02-12] MEDS ORDERED: ONDANSETRON 4 MG/2 ML VIAL IV ONE (20:13)
[2017-02-12] MEDS: HYDROmorphone 2 MG/ML SYRINGE IV PRN (20:23)
[2017-02-12 20:28] LABS: ALT/SGPT 16 U/l (0-40); Albumin 4.2 gm/dL (3.2-5.2); Albumin/Globulin Ratio 1.1 (1.0-2.3); Alkaline Phosphatase 78 U/L (39-117); Blood Urea Nitrogen 12 mg/dl (6-20); C-Reactive Protein 0.6 mg/dl (0.0-0.8); Magnesium 1.6 mg/dL (1.6-2.5)
[2017-02-12 20:30] LABS: Basophils # (Auto) 0.1 K/mcL (0.0-0.3); Basophils % (Auto) 0.4 % (0.0-2.0); Eosinophils # (Auto) 0 K/mcL (0.0-0.7); Eosinophils % (Auto) 0.1 % (0.0-7.0); Granulocytes % (Auto) 86.2 % (38.0-78.0); Lymphocytes # (Auto) 2.1 K/mcL (1.5-4.8); Lymphocytes % (Auto) 10.4 % (15.5-49.0); Mean Cell Volume 98.6 fL (80.0-100.0); Mean Corpuscular HGB Conc 34.6 g/dL (31.0-36.0); Mean Corpuscular Hemoglobin 34.2 pg (26.0-34.0); Monocytes # (Auto) 0.6 K/mcL (0.1-0.9); Monocytes % (Auto) 2.9 % (1.0-12.0); Platelet Count 270 K/mcL (140-440); RBC 4.71 M/mcL (4.00-5.20); Red Cell Distribution Width 13.7 % (11.5-14.5)
[2017-02-12] MEDS ORDERED: POTASSIUM CHLORIDE 40 MEQ in DEXTROSE 5% IN WATER 500 ML IV ONE (20:46)
[2017-02-12] MEDS ORDERED: MAGNESIUM SULFATE 8.12 MEQ in DEXTROSE 5% IN WATER 50 ML IV ONE (20:47)
[2017-02-12] MEDS ORDERED: PHOSPHORUS 250 MG TABLET PO SCH (21:00)
[2017-02-12] MEDS ORDERED: ONDANSETRON ODT 4 MG TABLET ONE (21:34)
[2017-02-12] MEDS ORDERED: ONDANSETRON ODT 4 MG TABLET SL ONE (21:34)
[2017-02-12] MEDS ORDERED: POTASSIUM CHLORIDE 20 MEQ/10 ML VIAL IV ONE (22:18)
[2017-02-12] MEDS ORDERED: LABETALOL 5 MG/ML ML IV ONE (23:03)
[2017-02-12] MEDS ORDERED: PHOSPHORUS 250 MG TABLET PO ONE (23:38)
--- NOTE | 2017-02-12 23:42 | Internal Med History&Physical ---
Medical - H&P: HPI Patient information: Note initiated : 02/12/17 at 11:41 pm Patient: Unique Spencer 51 y/o F admitted on for nausea, vomiting, heart racing. History of present illness: Ms. Spencer is a 51 year old with a history of recurrent nausea, vomiting, diarrhea. She was last admitted here in December, and upper endoscopy showed severe gastritis and duodenitis. She was treated with omeprazole and Carafate. When she followed up with Dr. Hayden, she reported severe headaches. These resolved when she stopped the omeprazole. She was started on Protonix. She apparently did okay for a few weeks, but yesterday again developed nausea, vomiting, diarrhea. She presented to the emergency room, complaining also of palpitations and mild shortness of breath. She was noted to have low potassium and low magnesium, and also had 2 runs of V. tach on the monitor. She was given IV fluids, IV magnesium and potassium, and sent home. She returns to the ER today with continued abdominal pain, nausea, vomiting, diarrhea. Symptoms seem worse when she eats something. She has been feeling a little chilled and a little dizzy. She notes a sore throat and cough, that seem to be triggered by the vomiting. She denies blood in vomit or stool. Otherwise, she denies known fever, headache, new eye or ear symptoms. Today she does not have chest pain or palpitations or shortness of breath. She does note that she had constipation a few days ago, and had been straining to pass hard stools, prior to the diarrhea starting. She denies dysuria. ER evaluation today showed marked leukocytosis, and CT scan shows bowel inflammation. Past medical history: Asthma Type 2 diabetes History of left total knee replacement Questionable pulmonary fibrosis History of cholecystectomy Hyperlipidemia Depression Obesity Arthritis Gastroparesis Hypertension History of severe gastritis and duodenitis Medications: Protonix 40 mg every morning--she thinks this was stopped recently Metformin 500 mg twice daily-she believes this was discontinued Celexa 40 mg nightly Iron sulfate 325 mg twice daily Amaryl 2 mg every morning-she believes this was discontinued recently NovoLog 3 units 3 times daily before meals-this was discontinued Synthroid 137 mcg daily Cozaar 6.25 mg nightly Mirtazapine 45 mg nightly Multivitamin daily Pravachol 40 mg nightly--she does not think she takes this one any longer either Allergies: Hydrocodone Codeine Ibuprofen Lisinopril Quetiapine Family history: She says her father is alive and well. Her mother has diabetes. She has 2 brothers who are alive and well. Social history: The patient says she smoked for about 20 years, but quit one year ago. 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 She is now free of all of these substances. She is and lives with her . Medical - H&P: Meds Home Medications Medication Instructions Recorded Confirmed Type Citalopram [Celexa] 40 mg PO HS 12/08/16 01/06/17 History Ferrous Sulfate 325 mg PO BIDCC 12/08/16 01/06/17 History Glimepiride [Amaryl] 2 mg PO QAMAC 12/08/16 01/06/17 History Insulin Aspart [Novolog] 3 unit SQ TIDAC 12/08/16 01/06/17 History Levothyroxine Sodium [Synthroid] 137 mcg PO QAMAC 12/08/16 01/06/17 History Losartan [Cozaar] 6.25 mg PO 12/08/16 01/06/17 History Mirtazapine [Remeron] 45 mg PO 12/08/16 01/06/17 History Multivit,Ther Iron,Ca,FA & Min 1 tab PO DAILY 12/08/16 01/06/17 History [Multivitamin W/Minerals] Pravastatin [Pravachol] 40 mg PO HS 12/08/16 01/06/17 History metFORMIN [Glucophage] 500 mg PO BIDCC 12/08/16 01/06/17 History Metoclopramide [Reglan] 10 mg PO ACHS #120 tab 12/27/16 01/06/17 Rx Sucralfate [Carafate] 1 gm PO Q6 #480 ml 12/27/16 01/06/17 Rx pantoprazole 40 mg tablet,delayed 40 mg PO QAM #30 tab 01/06/17 01/06/17 Rx release Magnesium Oxide [Magox 400] 400 mg PO BID #30 tablet 02/11/17 Rx Zolpidem Tartrate [Ambien] 5 mg PO HSP PRN #10 tablet 02/11/17 Rx Allergies Allergy/AdvReac Type Severity Reaction Status Date / Time hydrocodone AdvReac Mild Itching Verified 02/07/17 12:22 codeine AdvReac Unknown Verified 02/07/17 12:22 ibuprofen [From Motrin] AdvReac Unknown Verified 02/07/17 12:22 lisinopril AdvReac Unknown Verified 02/07/17 12:22 quetiapine [From Seroquel] AdvReac Unknown Verified 02/07/17 12:22 Medical - H&P: Exam - Constitutional Vitals: Temp Pulse Resp BP Pulse Ox 98.4 F 69 18 168/90 98 02/12/17 19:16 02/12/17 20:01 02/12/17 20:01 02/12/17 20:01 02/12/17 20:01 On exam, she says she is currently feeling okay, she recently received morphine and Zofran. She is not in any distress. She answers questions appropriately. Head is normocephalic, atraumatic. Eyes: PERRLA, EOMI, anicteric. Ears: TMs and canals are clear. She does wear a left hearing aid. Pharynx: She is edentulous. Mucosa is rather dry. Posterior pharynx looks normal. Neck: Appears supple, without obvious lymphadenopathy, JVD, thyromegaly, bruits. Cardiac exam: Regular rate and rhythm, with normal S1 and S2, without murmurs, rubs, gallops. Lungs are clear to auscultation, without rales, rhonchi, wheezes. Abdomen: Is rather firm, although it is not clear that she is guarding. She reports vague diffuse tenderness, but has no rebound. Bowel sounds are very hypoactive. No masses are noted. Extremities: Show no cyanosis, clubbing, edema. Neurologic exam: She is alert and oriented. Affect is a little unusual. However, she is calm and cooperative. The remainder of her exam is grossly nonfocal. Skin exam: Shows no obvious rashes or other worrisome lesions. Medical - H&P: Reslt - Labs CBC & Chem 7: 02/13/17 03:44 02/13/17 05:47 Labs: Short CBC 02/12/17 Range/Units 19:29 WBC 19.6 H (4.5-11.0) K/mcL Hgb 16.1 H (12.0-15.0) g/dL Hct 46.4 (36.0-48.0) % Plt Count 270 (140-440) K/mcL BMP 02/12/17 19:29 Sodium 139 Potassium 3.2 L Chloride 96 Carbon Dioxide 19 L BUN 12 Creatinine 0.8 Glucose 194 H Calcium 9.5 Liver Function 02/12/17 Range/Units 19:29 Total Bilirubin 0.6 (0.0-1.0) mg/dL AST 20 (0-37) U/l ALT 16 (0-40) U/l Alkaline Phosphatase 78 (39-117) U/L Albumin 4.2 (3.2-5.2) gm/dL February 12: CBC differential: Show 16,900 granulocytes Lactic acid: Normal at 1.3 Venous blood gas: Shows pH of 7.44, CO2 36, PO2 71 -Pro-calcitonin: Is pending. Urinalysis: Shows 150 mg glucose, 20 ketones, 8 red blood cells, negative leukocyte esterase and nitrites Chest x-ray: Normal chest x-ray. CT of the abdomen and pelvis: verbal report suggested enteritis, per ER MD.. EKG: Shows normal sinus rhythm, at a rate of approximately 75. Low voltage. Slow R-wave progression. Nonspecific ST-T changes noted. No significant change from February 11, 2017. Medical - H&P: A/P (1) Nausea & vomiting Current visit: Yes Status: Acute (2) Gastroenteritis Current visit: No Status: Acute (3) Diabetes mellitus Current visit: No Status: Chronic (4) Depression Current visit: No Status: Chronic (5) Hypertension Current visit: No Status: Chronic - Narrative A/P Narrative: #1. GI/infectious disease. Patient presents with nausea, vomiting, diarrhea, and CT scan suggestive of enteritis. She presented with a similar picture last December. Follow-up endoscopy at that time showed severe gastritis. And duodenitis. -This evening, the patient has significant leukocytosis, and other signs and symptoms of possible early sepsis. -Admit to telemetry. IV fluids. IV antibiotics. Cover abdomen and lungs with Zosyn and Levaquin, for gram- negative, gram-positive, and anaerobic coverage. Blood and stool cultures. Pain meds as needed. Check lactic acid and pro-calcitonin levels. Anti-emetics -If patient does not improve, consider surgical consult. Check formal chest x-ray and CT scan reports. -History of gastroparesis. History of GERD. Continue proton pump inhibitor. 2. Type 2 diabetes. Patient presents with signs of metabolic acidosis. Check hydroxybutyrate level. Accu-Cheks and sliding scale insulin coverage. -Resume Cozaar and Pravachol, when tolerated. 3. Renal. Labs are consistent with anion gap metabolic acidosis. This is likely multifactorial, due to dehydration, use of metformin, possible diabetic ketoacidosis. 4. Psychiatric. History of depression. Resume Celexa when able. I believe she said her mirtazapine is on hold. 5. Cardiac. -Reported history of runs of ventricular tachycardia yesterday. Monitor on telemetry tonight. -Hypertension. 6. History of hypothyroidism [place] continue Synthroid. 7. CODE STATUS: Full code. 8. DVT prophylaxis: Lovenox. This visit took approximately 60 minutes, to review the patient's case with the ER MD, review her records and test results, interview and examine her, and write orders.
[2017-02-12 23:51] LABS: Appearance,Urine CLEAR; Bacteria,Urine 0 /hpf (0); Bilirubin,Urine NEG (NEG); Color,Urine STRAW; Glucose,Urine (UA) 150 mg/dL (NEG); Leukocyte Esterase,Urine NEG /uL (NEG); Nitrate,Urine NEG (NEG); Protein,Urine NEG (NEG); Specific Gravity,Urine 1.011 (1.000-1.035); Urine Blood 0.03 mg/dL (<0.03); Urine Hyaline Cast 1 /lpf (0-2); Urine RBC 8 /hpf (0-1); Urine Squamous Epithelial Cell < 1 /hpf (0-4); Urine WBC < 1 /hpf (0-4); Urobilinogen,Urine NEG (NEG)
[2017-02-13] MEDS ORDERED: NALOXONE HCL 0.4 MG/ML VIAL IV PRN (00:13)
[2017-02-13] MEDS ORDERED: ALBUTEROL SULFATE 2.5 MG/3 ML NEBULIZER NEB PRN (00:13)
[2017-02-13] MEDS ORDERED: DOCUSATE SODIUM 100 MG CAPSULE PO PRN (00:13)
[2017-02-13] MEDS ORDERED: DEXTROSE 31 GM ORAL.SUSP PO PRN (00:13)
[2017-02-13] MEDS ORDERED: PHOSPHORUS 250 MG TABLET PO ONE (00:13)
[2017-02-13] MEDS ORDERED: ONDANSETRON 4 MG/2 ML VIAL IV PRN (00:13)
[2017-02-13] MEDS ORDERED: ACETAMINOPHEN 325 MG TABLET PO PRN (00:13)
[2017-02-13] MEDS ORDERED: DEXTROSE 50% 50 ML VIAL IV PRN (00:13)
[2017-02-13 00:47] LABS: ABG Methemoglobin 0.3 % (0.4-1.5); VBG Base Excess 0.7 (-2.0-2.0); VBG HCO3 24.5 mmol/L (24.0-28.0); VBG PCO2 36.8 mmHg (41.0-51.0); VBG PH 7.44 U (7.32-7.42); VBG PO2 71 mmHg (25-40); VBG Total CO2 25.6 mmol/L (25.0-29.0)
[2017-02-13] MEDS: HYDROmorphone 2 MG/ML SYRINGE IV PRN ×2 (01:02→05:29)
[2017-02-13] MEDS ORDERED: POTASSIUM PHOSPHATE 66 MEQ/15 ML VIAL IV ONE (01:10)
[2017-02-13] MEDS ORDERED: PIPERACILLIN SODIUM/TAZOBACTAM 3.375 GM VIAL IV ONE ×2 (01:10→03:53)
[2017-02-13] MEDS: PIPERACILLIN SODIUM/TAZOBACTAM 3.375 GM in DEXTROSE 5% IN WATER 50 ML IV SCH ×2 (01:12→07:32)
[2017-02-13] MEDS: LEVOFLOXACIN 500 MG/100 ML BAG IV SCH ×2 (01:13→01:30)
[2017-02-13] MEDS: POTASSIUM PHOSPHATE IV SCH ×3 (01:13→09:19)
[2017-02-13] MEDS: SODIUM CHLORIDE 0.45% IV SCH ×3 (01:13→09:19)
[2017-02-13 05:30] LABS: Basophils # (Auto) 0 K/mcL (0.0-0.3); Basophils % (Auto) 0.3 % (0.0-2.0); Eosinophils # (Auto) 0 K/mcL (0.0-0.7); Eosinophils % (Auto) 0.3 % (0.0-7.0); Granulocytes % (Auto) 67.4 % (38.0-78.0); Lymphocytes # (Auto) 3.8 K/mcL (1.5-4.8); Mean Cell Volume 99.1 fL (80.0-100.0); Mean Corpuscular HGB Conc 34.1 g/dL (31.0-36.0); Mean Corpuscular Hemoglobin 33.8 pg (26.0-34.0); Monocytes # (Auto) 0.7 K/mcL (0.1-0.9); Platelet Count 234 K/mcL (140-440); RBC 3.86 M/mcL (4.00-5.20); Red Cell Distribution Width 13.9 % (11.5-14.5)
[2017-02-13 06:36] LABS: ALT/SGPT 10 U/l (0-40); Albumin 3.5 gm/dL (3.2-5.2); Albumin/Globulin Ratio 1.2 (1.0-2.3); Alkaline Phosphatase 57 U/L (39-117); Bilirubin,Direct < 0.2 mg/dL (0.0-0.3); Blood Urea Nitrogen 9 mg/dl (6-20); Gamma Glutamyl Transpeptidase 14 U/L (5-36); Magnesium 1.9 mg/dL (1.6-2.5); Uric Acid 2.7 mg/dL (2.5-8.0)
[2017-02-13] MEDS: 0.9 % SODIUM CHLORIDE 10 ML SYRINGE IV PRN ×4 (07:32→10:02)
[2017-02-13] MEDS: INSULIN LISPRO 1 UNIT/0.01 ML UNIT SQ SCH ×4 (07:32→20:23)
--- NOTE | 2017-02-13 07:58 | Emergency Department Note ---
Nausea/Vomiting/Diarrhea HPI - General Chief complaint: Nausea/Vomiting/Diarrhea Stated complaint: nausea, vomiting, heart racing Time Seen by Provider: 02/12/17 19:45 Source: patient Mode of arrival: wheelchair Limitations: no limitations - History of Present Illness HPI Narrative: The patient is a 51-year-old female who presents with complaint of nausea, vomiting and diarrhea. She was here yesterday for similar complaint and was given IV fluids. She did have a couple runs of nonsustained ventricular tachycardia on the monitor and was sent to have low magnesium and was started on this at home. The patient reports that yesterday she was feeling better and was okay with going home however when she got there she has been vomiting and having diarrhea all day. Reports that today she is having 7 episodes of vomiting and 6-7 episodes of runny diarrhea. She's been trying to drink water at home but reports it all, tried BiPAP. Did try Pepto-Bismol to try to help her symptoms. She is describing diffuse abdominal pain from her epigastric region into her pelvis. Reports that it's been the same and hasn't been changing location but the level of the pain is getting worse. Rates the pain as a 10 out of 10. Denies radiation or migration. Reports that she has had scopes done looking at her stomach and that she was told she had a lot of inflammation. Of note the patient is a type II diabetic on metformin. She also reports that she has a history of a murmur but she was born with that and doesn't cause her problems. She is denying any chest pain or shortness of breath today. MD complaint: nausea, vomiting, diarrhea, abdominal pain Onset (ago): week(s) Description of Vomiting: watery Description of Diarrhea: water Associated Abdominal Pain: Yes Location of pain: diffuse Severity scale (1-10): 10 Quality: cramping Consistency: constant Associated symptoms: Reports: denies other symptoms - Related Data Home Medications Medication Instructions Recorded Confirmed Citalopram [Celexa] 40 mg PO HS 12/08/16 01/06/17 Ferrous Sulfate 325 mg PO BIDCC 12/08/16 01/06/17 Glimepiride [Amaryl] 2 mg PO QAMAC 12/08/16 01/06/17 Insulin Aspart [Novolog] 3 unit SQ TIDAC 12/08/16 01/06/17 Levothyroxine Sodium [Synthroid] 137 mcg PO QAMAC 12/08/16 01/06/17 Losartan [Cozaar] 6.25 mg PO HS 12/08/16 01/06/17 Mirtazapine [Remeron] 45 mg PO HS 12/08/16 01/06/17 Multivit,Ther Iron,Ca,FA & Min 1 tab PO DAILY 12/08/16 01/06/17 [Multivitamin W/Minerals] Pravastatin [Pravachol] 40 mg PO HS 12/08/16 01/06/17 metFORMIN [Glucophage] 500 mg PO BIDCC 12/08/16 01/06/17 Previous Rx's Medication Instructions Recorded Metoclopramide [Reglan] 10 mg PO ACHS #120 tab 12/27/16 Sucralfate [Carafate] 1 gm PO Q6 #480 ml 12/27/16 pantoprazole 40 mg tablet,delayed 40 mg PO QAM #30 tab 01/06/17 release Magnesium Oxide [Magox 400] 400 mg PO BID #30 tablet 02/11/17 Zolpidem Tartrate [Ambien] 5 mg PO HSP PRN #10 tablet 02/11/17 Allergies Allergy/AdvReac Type Severity Reaction Status Date / Time hydrocodone AdvReac Mild Itching Verified 02/07/17 12:22 codeine AdvReac Unknown Verified 02/07/17 12:22 ibuprofen [From Motrin] AdvReac Unknown Verified 02/07/17 12:22 lisinopril AdvReac Unknown Verified 02/07/17 12:22 quetiapine [From Seroquel] AdvReac Unknown Verified 02/07/17 12:22 Review of Systems All systems ED: reviewed and negative except as stated. Past Medical History - Past Medical History Attestation: Yes: The following information was validated with the patient. Medical history: Reports: arthritis, diabetes, hypertension, thyroid disease Surgical history ED: Reports: cholecystectomy, other (knee scope) Psychiatric history: Reports: depression - Social History Alcohol use: Reports: None Drug use: Reports: none Physical Exam - General Limitations: no limitations General appearance: alert, in distress (appears to be in pain. ) - Head Head exam: atraumatic, normocephalic - Eye Eye exam: Present: normal appearance - ENT ENT exam: normal exam - Neck Neck exam: Present: normal inspection - Chest Chest inspection: Present: normal inspection - Respiratory Respiratory exam: Present: normal lung sounds bilaterally - Cardiovascular Cardiovascular exam: Present: regular rate, normal rhythm - Abdominal Exam Abdominal exam: Present: soft, tenderness, guarding, normal bowel sounds Abdominal tenderness: Present: RUQ, RLQ, LUQ, LLQ, diffuse, moderate - External exam: Present: normal external exam - Neurological Exam Neurological exam: Present: alert, oriented X3 - Psychiatric Psychiatric exam: Present: anxious, flat affect - Skin Skin exam: Present: warm, dry Course Course Narrative: On arrival patient's reporting similar symptoms to yesterday with a lapse in between where she's been vomiting and having diarrhea. IV fluids were started on her and lab work was ordered. She was given antinausea medication and pain medication. Due to the patient's diffuse abdominal symptoms I feel it necessary to repeat a CT abdomen and pelvis from one that was done a week ago. - Reevaluation(s) Reevaluation #1: Lab work returned showing an acute change in her white blood cell count from 14 yesterday up to 19.6 today. Her potassium is 3.2. Urinalysis was negative. The CT abdomen showed nonspecific changes, possibly enteritis. No abscess or fluid collection was seen. Reevaluation #2: Patient reevaluated and she is continuing to describe abdominal pain. She is feeling nauseous and asking for antinausea medication. Does not feel comfortable or safe going home. Vital Signs Temperature 98.4 F 02/12/17 19:16 Pulse Rate 72 02/12/17 19:16 Respiratory Rate 18 02/12/17 19:16 Blood Pressure 163/88 02/12/17 19:16 Pulse Oximetry (%) 99 02/12/17 19:16 Temperature 97.8 F 02/13/17 07:15 Pulse Rate 55 L 02/13/17 07:15 Respiratory Rate 18 02/13/17 07:15 Blood Pressure 98/71 02/13/17 07:15 Pulse Oximetry (%) 100 02/13/17 07:15 Nausea/Vomiting/Diarrhea - [facility] Narrative Medical decision making narrative: This is a 51-year-old who presents with worsening nausea, vomiting and abdominal pain from ER visit day earlier. At that time she was having a couple nonsustained runs of ventricular tachycardia. Here she had no similar symptoms and was denying any chest pain. Her exam is remarkable for abdominal pain and the CT abdomen was nonspecific. Called the on-call hospitalist, Dr. Richardson and discussed the case with her. The patient does meet SIRS criteria but we have an unknown source of infection right now other than somewhere in the abdomen. We can try to get stool cultures. At this point I feel that the patient needs to be admitted for further workup and treatment. Dr. Richardson graciously agreed to accept this patient. She will go to telemetry due to recent VT history. - Lab Data Lab results reviewed: Yes I reviewed the patient's lab results. Result diagrams: 02/13/17 03:44 02/13/17 05:47 Lab Results 02/12/17 02/12/17 02/12/17 Range/Units 19:29 19:29 19:29 WBC 19.6 H (4.5-11.0) K/mcL RBC 4.71 (4.00-5.20) M/mcL Hgb 16.1 H (12.0-15.0) g/dL Hct 46.4 (36.0-48.0) % MCV 98.6 (80.0-100.0) fL MCH 34.2 H (26.0-34.0) pg MCHC 34.6 (31.0-36.0) g/dL RDW 13.7 (11.5-14.5) % Plt Count 270 (140-440) K/mcL MPV 8.3 (7.4-10.4) fL Gran % 86.2 H (38.0-78.0) % Lymph % (Auto) 10.4 L (15.5-49.0) % [place] % (Auto) 2.9 (1.0-12.0) % Eos % (Auto) 0.1 (0.0-7.0) % Baso % (Auto) 0.4 (0.0-2.0) % Gran # 16.9 H (1.8-8.0) K/mcL Lymph # (Auto) 2.1 (1.5-4.8) K/mcL [place] # (Auto) 0.6 (0.1-0.9) K/mcL Eos # (Auto) 0 (0.0-0.7) K/mcL Baso # (Auto) 0.1 (0.0-0.3) K/mcL VBG Lactic Acid (0.5-2.2) mmol/L Sodium 139 (133-145) mmol/L Potassium 3.2 L (3.3-5.1) mmol/L Chloride 96 (96-108) mmol/L Carbon Dioxide 19 L (22-30) mmol/L Anion Gap 24.0 H (8-16) BUN 12 (6-20) mg/dl Creatinine 0.8 (0.6-1.1) mg/dl GFR Calculation 84 Glucose 194 H (70-105) mg/dL Calcium 9.5 (8.6-10.4) mg/dl Phosphorus 1.7 L (2.7-4.5) mg/dL Magnesium 1.6 (1.6-2.5) mg/dL Total Bilirubin 0.6 (0.0-1.0) mg/dL AST 20 (0-37) U/l ALT 16 (0-40) U/l Alkaline Phosphatase 78 (39-117) U/L C-Reactive Protein 0.6 (0.0-0.8) mg/dl Total Protein 8.0 (5.9-8.4) gm/dL Albumin 4.2 (3.2-5.2) gm/dL Globulin 3.8 H (2.2-3.7) gm/dL Albumin/Globulin Ratio 1.1 (1.0-2.3) Lipase 24 (7-60) U/L Beta-Hydroxybutyrate (< 0.27) mmol/L Urine Color Urine Appearance Urine pH (5.0-9.0) Ur Specific [place] (1.000-1.035) Urine Protein (NEG) mg/dL Urine Glucose (UA) (NEG) mg/dL Urine Ketones (NEG) mg/dL Urine Occult Blood (<0.03) mg/dL Urine Nitrate (NEG) Urine Bilirubin (NEG) mg/dL Urine Urobilinogen (NEG) mg/dL Ur Leukocyte Esterase (NEG) /uL Urine RBC (0-1) /hpf Urine WBC (0-4) /hpf Ur Squamous Epith Cells (0-4) /hpf Urine Bacteria (0) /hpf Hyaline Casts (0-2) /lpf Ur Culture Indicated? 02/12/17 02/12/17 02/12/17 Range/Units 19:29 23:00 23:26 WBC (4.5-11.0) K/mcL RBC (4.00-5.20) M/mcL Hgb (12.0-15.0) g/dL Hct (36.0-48.0) % MCV (80.0-100.0) fL MCH (26.0-34.0) pg MCHC (31.0-36.0) g/dL RDW (11.5-14.5) % Plt Count (140-440) K/mcL MPV (7.4-10.4) fL Gran % (38.0-78.0) % Lymph % (Auto) (15.5-49.0) % [place] % (Auto) (1.0-12.0) % Eos % (Auto) (0.0-7.0) % Baso % (Auto) (0.0-2.0) % Gran # (1.8-8.0) K/mcL Lymph # (Auto) (1.5-4.8) K/mcL [place] # (Auto) (0.1-0.9) K/mcL Eos # (Auto) (0.0-0.7) K/mcL Baso # (Auto) (0.0-0.3) K/mcL VBG Lactic Acid 1.3 (0.5-2.2) mmol/L Sodium (133-145) mmol/L Potassium (3.3-5.1) mmol/L Chloride (96-108) mmol/L Carbon Dioxide (22-30) mmol/L Anion Gap (8-16) BUN (6-20) mg/dl Creatinine (0.6-1.1) mg/dl GFR Calculation Glucose (70-105) mg/dL Calcium (8.6-10.4) mg/dl Phosphorus (2.7-4.5) mg/dL Magnesium (1.6-2.5) mg/dL Total Bilirubin (0.0-1.0) mg/dL AST (0-37) U/l ALT (0-40) U/l Alkaline Phosphatase (39-117) U/L C-Reactive Protein (0.0-0.8) mg/dl Total Protein (5.9-8.4) gm/dL Albumin (3.2-5.2) gm/dL Globulin (2.2-3.7) gm/dL Albumin/Globulin Ratio (1.0-2.3) Lipase (7-60) U/L Beta-Hydroxybutyrate 1.29 H (< 0.27) mmol/L Urine Color Straw Urine Appearance Clear Urine pH 9.0 (5.0-9.0) Ur Specific [place] 1.011 (1.000-1.035) Urine Protein Neg (NEG) mg/dL Urine Glucose (UA) 150 A (NEG) mg/dL Urine Ketones 20 A (NEG) mg/dL Urine Occult Blood 0.03 A (<0.03) mg/dL Urine Nitrate Neg (NEG) Urine Bilirubin Neg (NEG) mg/dL Urine Urobilinogen Neg (NEG) mg/dL Ur Leukocyte Esterase Neg (NEG) /uL Urine RBC 8 H (0-1) /hpf Urine WBC < 1 (0-4) /hpf Ur Squamous Epith Cells < 1 (0-4) /hpf Urine Bacteria 0 (0) /hpf Hyaline Casts 1 (0-2) /lpf Ur Culture Indicated? No Disposition Pt seen by ASSISTANT [employer] CONTROL OPERATOR/PA only: No Clinical Impression: Gastroenteritis, SIRS (systemic inflammatory response syndrome) Disposition: Xfer As Inpt ([facility]) Condition: Fair
--- NOTE | 2017-02-13 09:21 | Cat Scan Report ---
CLINICAL INFORMATION: Reason for Exam:worsening abdominal pain from image done 02/07 COMPARISON: 02/07/17 TECHNIQUE: Following injection of intravenous contrast the patient was scanned during the portal venous phase from the diaphragm through the symphysis pubis. Sagittal and coronal reformats were created.. FINDINGS: The wall of the distal esophagus is minimally thickened. This is nonspecific finding which was also present on the prior exam. The liver is normal in size and homogeneous. The spleen is also normal in size. There is a stable subcapsular band of low-attenuation material along the posterior lateral margin. It measures 5 mm in thickness and 3.6 cm in length. This has not changed significantly and may be a subacute subcapsular hematoma. The spleen is otherwise homogeneous and has normal blood flow. The gallbladder is surgically absent and the bile ducts are nondilated. There is no mass or inflammation the pancreas. The adrenals and kidneys are normal. The bowel gas pattern is normal. There is no evidence of ileus, obstruction or inflammatory bowel disease. There is radiopaque material within a nondistended and noninflamed appendix. No abnormality seen in the uterus and ovaries are bladder. Mild arthritis is noted in the lumbar spine and SI joints. There are scattered plaques along the robbins of the aorta and iliac arteries. IMPRESSION: No acute abnormality and no change since 02/07/17 Stable small subcapsular hematoma in the spleen Mild thickening of the wall of the distal esophagus which could be due to hiatus hernia or chronic esophagitis Interpreted and Authenticated by: Magdy Trejo 02/13/17
--- NOTE | 2017-02-13 09:22 | XRay Report ---
HISTORY: Reason for Exam:NAUSEA, vomiting, r/o pneumonia FINDINGS: The lungs are clear and well expanded. The heart size, mediastinum, rosemary and pleura are normal. No free intra-abdominal air is present. Stomach contains a moderate amount of fluid. There is mild arthritis throughout the thoracic and lumbar spine. IMPRESSION: Normal chest. Interpreted and Authenticated by: Magdy Trejo 02/13/17
[2017-02-13] MEDS: FAMOTIDINE/PF 20 MG/2 ML VIAL IV SCH ×2 (09:44→20:40)
[2017-02-13] MEDS: ENOXAPARIN 40 MG/0.4 ML SYRINGE SQ SCH (09:45)
[2017-02-13] MEDS: POTASSIUM CHLORIDE 20 MEQ in 0.45 % SODIUM CHLORIDE 1,000 ML IV SCH ×2 (11:00→21:13)
[2017-02-13] MEDS: SUCRALFATE 1 GM/10 ML ORAL.SUSP PO SCH ×3 (11:50→20:20)
[2017-02-13] MEDS: 0.9 % SODIUM CHLORIDE 10 ML SYRINGE IV SCH ×4 (11:55→22:00)
[2017-02-13] MEDS: PANTOPRAZOLE 40 MG VIAL IV SCH ×2 (11:55→21:04)
--- NOTE | 2017-02-13 13:57 | Internal Med Progress Note ---
Medical - PN: Subj Patient information: Note initiated : 02/13/17 at 1:57 pm Service Date, if different from initiated Date: [] Patient: Unique Spencer a 51 y/o F admitted on 02/12/17 for nausea, vomiting, heart racing. Chief Complaint: [] Interval history: February 12, 2017: History of present illness: Ms. Spencer is a 51 year old with a history of recurrent nausea, vomiting, diarrhea. She was last admitted here in December, and upper endoscopy showed severe gastritis and duodenitis. She was treated with omeprazole and Carafate. When she followed up with Dr. Hayden, she reported severe headaches. These resolved when she stopped the omeprazole. She was started on Protonix. She apparently did okay for a few weeks, but yesterday again developed nausea, vomiting, diarrhea. She presented to the emergency room, complaining also of palpitations and mild shortness of breath. She was noted to have low potassium and low magnesium, and also had 2 runs of V. tach on the monitor. She was given IV fluids, IV magnesium and potassium, and sent home. She returns to the ER today with continued abdominal pain, nausea, vomiting, diarrhea. Symptoms seem worse when she eats something. She has been feeling a little chilled and a little dizzy. She notes a sore throat and cough, that seem to be triggered by the vomiting. She denies blood in vomit or stool. Otherwise, she denies known fever, headache, new eye or ear symptoms. Today she does not have chest pain or palpitations or shortness of breath. She does note that she had constipation a few days ago, and had been straining to pass hard stools, prior to the diarrhea starting. She denies dysuria. ER evaluation today showed marked leukocytosis, and CT scan shows bowel inflammation. February 13: This morning, the patient notes she is feeling better. She is having less nausea and less abdominal pain. She still describes her discomfort is mostly lower abdomen, and not so much epigastric. She does say that she occasionally has heartburn. I quizzed her more closely this morning about her medications. She believes she stopped both the Reglan and the Protonix a couple of weeks ago, because she was having slight tremors of her hand, and she thought she had read that both of those could cause tardive dyskinesia. She believes she did continue to stay on the Carafate. Her medications usually arrive from the pharmacy in a bubble pack, but apparently she was removing the Protonix and Reglan. Otherwise, she denies fever or chills, sore throat or cough, chest pain or shortness of breath. She has not had vomiting or further diarrhea since admission. She denies dysuria, but does have a Garcia catheter in place. -The ER MD had told me last night that her CT was suggestive of enteritis. Formal reading on the CT scan from today, does not show any intestinal abnormalities. It does show thickening of the lower esophagus, which is not much different from the previous CT. -The patient also reports that her primary care physician had stopped her insulin and Amaryl recently, because her hemoglobin A1c was running so low. She has continued to take Celexa and iron, Synthroid, Cozaar, mirtazapine, multivitamin. She thinks she may have stopped the Pravachol, but is unsure. -Glucose and beta hydroxybutyrate levels were elevated last night, but blood gas does not show significant acidosis. She did have elevated anion gap yesterday, so I suspect she had a mixed metabolic acidosis with compensatory respiratory alkalosis. - Constitutional Vitals: Vital Signs Temp Pulse Resp BP Pulse Ox 97.4 F 60 18 102/70 99 02/13/17 11:45 02/13/17 11:45 02/13/17 11:45 02/13/17 11:45 02/13/17 11:45 Period Temp Pulse Resp BP Sys/Mcdonough Pulse Ox Last 24 Hr 97.2 F-98.4 F 52-69 18-18 98-168/70-90 98-100 Intake and Output 02/12/17 02/13/17 02/13/17 21:59 05:59 13:59 Intake Total 1670 / 1722 1659.0909 / 1659.0909 Output Total 950 / 950 Balance 720 / 772 1659.0909 / 1659.0909 Intake & Output: Intake & Output 02/12/17 02/13/17 02/13/17 21:59 05:59 13:59 Intake Total 1670 / 1722 1659.0909 / 1659.0909 Output Total 950 / 950 Balance 720 / 772 1659.0909 / 1659.0909 Intake: IV 1670 / 1670 1059.0909 / 1059.0909 Zosyn 3.375 gm In 50 / 50 50 / 50 Dextrose 5% in Water 50 ml @ 100 mls/hr IV Q6H [facility] Rx#:[id number] Potassium Phosphate 40 1009.0909 / 1009.0909 Meq In Sodium Chloride 0. 45% 1,000 ml @ 150 mls/hr IV .Q6H44M [facility]ACEY Rx#: [id number] Oral 600 / 600 Output: Urine Catheter Amount 950 / 950 Other: Meal Lunch Percent of Meal Consumed 75% Feeding Ability Independent On exam, she is awake and alert, pleasant and cooperative. Her significant other of 22 years is also in the room this morning. Neck is supple without obvious lymphadenopathy or JVD. Cardiac exam shows regular rate and rhythm. Lungs do have some soft expiratory wheezes today. The patient states she takes no respiratory medications at home.. Abdomen is somewhat firm, without definite distention, without obvious tenderness. There is no rebound or guarding. Bowel sounds are active. There are no obvious masses. Extremities: Show no significant edema. She does have clubbing of her fingers, which she pointed out to me. Neurologic exam is grossly nonfocal. Medical - PN: Obj Da - Labs CBC & Chem 7: 02/13/17 03:44 02/13/17 05:47 Labs: Abnormal Lab Results 02/13/17 02/13/17 02/13/17 05:47 03:44 00:32 WBC 14.1 H RBC 3.86 L Gran # 9.5 H ABG Methemoglobin 0.3 L VBG pH 7.44 H VBG pCO2 36.8 L VBG pO2 71 H VBG O2 Saturation 89.0 H Carboxyhemoglobin 5.3 H Glucose 108 H Calcium 8.2 L Phosphorus 5.7 H Triglycerides 164 H February 12: CBC differential: Show 16,900 granulocytes Lactic acid: Normal at 1.3 Venous blood gas: Shows pH of 7.44, CO2 36, PO2 71 -Pro-calcitonin: Is pending. Urinalysis: Shows 150 mg glucose, 20 ketones, 8 red blood cells, negative leukocyte esterase and nitrites Chest x-ray: Normal chest x-ray. CT of the abdomen and pelvis: verbal report suggested enteritis, per ER MD.. EKG: Shows normal sinus rhythm, at a rate of approximately 75. Low voltage. Slow R-wave progression. Nonspecific ST-T changes noted. No significant change from February 11, 2017. Meds: Medications Acetaminophen (Tylenol) 650 mg PO Q6HP PRN PRN Reason: PAIN/FEVER > 101 Albuterol Sulfate (Ventolin) 2.5 mg NEB Q4HP PRN PRN Reason: Shortness Of Breath Or Wheezing Dextrose (Dextrose 50%) 0 ml IV UD PRN PRN Reason: Hypoglycemia Diagnostic Test (Pha) (Accu-Chek) 1 each FS ACHS [facility] Last Admin: 02/13/17 11:41 Dose: 1 each Docusate Sodium (Colace) 100 mg PO BID PRN PRN Reason: Constipation Enoxaparin Sodium (Lovenox) 40 mg SQ DAILY [facility] Last Admin: 02/13/17 09:45 Dose: 40 mg Famotidine (Pepcid) 20 mg IV Q12 [facility] Last Admin: 02/13/17 09:44 Dose: 20 mg Glucose (Insta-Glucose) 15 gm PO PRN PRN PRN Reason: Hypoglycemia Hydromorphone HCl (Dilaudid) 0.5 mg IV Q15MIN PRN PRN Reason: Pain Last Admin: 02/13/17 05:29 Dose: 0.5 mg Potassium Chloride 20 meq/ (Sodium Chloride) 1,010 mls @ 100 mls/hr IV .Q10H6M [facility] Last Admin: 02/13/17 11:00 Dose: 100 mls/hr Insulin Human Lispro (Humalog) 0 unit SQ [facility] PRN Reason: Protocol Last Admin: 02/13/17 11:42 Dose: Not Given Levothyroxine Sodium (Synthroid) 88 mcg PO QAMAC [facility] Levothyroxine Sodium (Synthroid) 50 mcg PO QAMAC [facility] Morphine Sulfate (Morphine) 2 mg IV Q1HP PRN PRN Reason: Pain Last Admin: 02/13/17 10:01 Dose: 2 mg Naloxone HCl (Narcan) 0.1 mg IV Q2MIN PRN PRN Reason: Opiate Reversal Ondansetron HCl (Zofran) 4 mg IV Q4HP PRN PRN Reason: Nausea And Vomiting Last Admin: 02/13/17 01:01 Dose: 4 mg Pantoprazole Sodium (Protonix) 40 mg IV BIDAC [facility] Last Admin: 02/13/17 11:55 Dose: 40 mg Sodium Chloride (Saline Flush) 10 ml IV Q8 [facility] Last Admin: 02/13/17 11:55 Dose: 10 ml Sodium Chloride (Saline Flush) 10 ml IV UD PRN PRN Reason: FLUSH Last Admin: 02/13/17 10:02 Dose: 10 ml Sucralfate (Carafate) 1 gm PO ACHS [facility] Last Admin: 02/13/17 11:50 Dose: 1 gm - ABG Interpretation ABG results: 02/13/17 00:32 ABG Methemoglobin 0.3 L VBG pH 7.44 H VBG pCO2 36.8 L VBG pO2 71 H VBG HCO3 24.5 VBG Total CO2 25.6 VBG O2 Saturation 89.0 H VBG Base Excess 0.7 Medical - PN: A/P - Time Spent With Patient Total time spent is greater than 50% in coordination of care (as documented) at patient's floor/unit and/or counseling patient: Greater than 35 minutes (1) Nausea & vomiting Status: Acute Current Visit: Yes (2) Gastroenteritis Status: Acute Current Visit: No (3) Diabetes mellitus Status: Chronic Current Visit: No (4) Depression Status: Chronic Current Visit: No (5) Hypertension Status: Chronic Current Visit: No - Narrative A/P Narrative: #1. GI/infectious disease. Patient presents with nausea, vomiting, diarrhea, and CT scan that today really does not show evidence of bowel inflammation. There is some thickening of her esophagus, and she is known to have previous severe gastritis and duodenitis, as well as reflux. She reportedly stopped her Protonix at home. I discussed with her that she likely really needs to stay on this. -She was given an IV dose this morning, and we will try her back on oral this evening, to be sure that she can tolerate it, and that it does not seem to trigger the tremor she was complaining about. -We can continue to hold the Reglan for now. -Carafate 4 times daily was resumed as well. -Etiology of her lower abdominal discomfort, and elevated white blood cell count , is still unclear. Lactic acid and pro-calcitonin levels were normal last night. Blood cultures are pending. Because there is no obvious infectious source, antibiotics were discontinued today. I did ask Dr. Hayden to review her case again, and see if he has other thoughts. -History of gastroparesis. History of GERD. Continue proton pump inhibitor. Slowly advance diet, as tolerated. 2. Type 2 diabetes. Patient presents with signs of metabolic acidosis. Hydroxybutyrate level was elevated. Serum bicarb appears back to normal today, and blood glucose goals are fairly normal. Accu-Cheks and sliding scale insulin coverage. -Resume Cozaar and Pravachol, when tolerated. 3. Renal. She presented with a picture of mixed metabolic acidosis and respiratory alkalosis. This seems improved today. Metformin is on hold for this time. We will slowly advance her diet. 4. Psychiatric. History of depression. Resume Celexa when able. I believe she said her mirtazapine is on hold. -It is unclear if she has some type of prior developmental delay. She does report past history of heavy alcohol abuse as well. 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 It might be worthwhile to have someone checking in on if she is taking her medications appropriately at home. 5. Cardiac. -Reported history of runs of ventricular tachycardia 2 days ago. Telemetry today is suggestive of prolonged QT. Oral magnesium was resumed. Monitor on telemetry.. -Hypertension. Blood pressure running low normal at this time. 6. History of hypothyroidism continue Synthroid. 7. CODE STATUS: Full code. 8. DVT prophylaxis: Lovenox. 9. Pulmonary. She does have some wheezing on exam today. She has been vomiting, so is at risk for aspiration. Check chest x-ray. Approximately 40 minutes has been spent so far today, reviewing patient's test results, interviewing and examining her, reviewing plan of care with her extensively, including the reason that she needs to stay on her Protonix and Carafate, reviewing plan of care with staff, and touching base with Dr. Hayden. Medical - PN: Qual - VTE Deep Vein Thrombosis/Pulmonary Embolism Present on Admission: No
[2017-02-13] MEDS: MAGNESIUM OXIDE 400 MG TABLET PO SCH (18:59)
[2017-02-13] MEDS: PANTOPRAZOLE 40 MG TABLET PO SCH (18:59)
--- NOTE | 2017-02-13 20:15 | XRay Report ---
HISTORY: Reason for Exam:wheezing on exam; ? aspiration with vomiting FINDINGS: The lungs are clear and normally expanded. There is no evidence of pneumonia, aspiration or obstructive airway disease. The heart size, pulmonary vasculature, mediastinum, rosemary and pleura are normal. There has been no significant change since 02/12/17. IMPRESSION: Normal chest Interpreted and Authenticated by: Magdy Trejo 02/13/17
[2017-02-14] MEDS: 0.9 % SODIUM CHLORIDE 10 ML SYRINGE IV SCH (05:50)
[2017-02-14 06:04] LABS: Basophils # (Auto) 0 K/mcL (0.0-0.3); Basophils % (Auto) 0.4 % (0.0-2.0); Eosinophils # (Auto) 0.1 K/mcL (0.0-0.7); Eosinophils % (Auto) 1.4 % (0.0-7.0); Granulocytes % (Auto) 57.4 % (38.0-78.0); Lymphocytes # (Auto) 3.3 K/mcL (1.5-4.8); Lymphocytes % (Auto) 35.2 % (15.5-49.0); Mean Cell Volume 99.8 fL (80.0-100.0); Mean Corpuscular HGB Conc 34.2 g/dL (31.0-36.0); Mean Corpuscular Hemoglobin 34.2 pg (26.0-34.0); Monocytes # (Auto) 0.5 K/mcL (0.1-0.9); Monocytes % (Auto) 5.6 % (1.0-12.0); Platelet Count 221 K/mcL (140-440); RBC 3.54 M/mcL (4.00-5.20)
[2017-02-14 06:27] LABS: ALT/SGPT 9 U/l (0-40); Albumin 2.9 gm/dL (3.2-5.2); Alkaline Phosphatase 54 U/L (39-117); Bilirubin,Direct < 0.2 mg/dL (0.0-0.3); Blood Urea Nitrogen 8 mg/dl (6-20); Gamma Glutamyl Transpeptidase 14 U/L (5-36); Magnesium 1.9 mg/dL (1.6-2.5); Uric Acid 2.7 mg/dL (2.5-8.0)
[2017-02-14] MEDS: INSULIN LISPRO 1 UNIT/0.01 ML UNIT SQ SCH ×2 (07:05→11:51)
[2017-02-14] MEDS: PANTOPRAZOLE 40 MG TABLET PO SCH (07:21)
[2017-02-14] MEDS: POTASSIUM CHLORIDE 20 MEQ in 0.45 % SODIUM CHLORIDE 1,000 ML IV SCH (07:21)
[2017-02-14] MEDS: SUCRALFATE 1 GM/10 ML ORAL.SUSP PO SCH ×2 (07:21→11:51)
[2017-02-14] MEDS: 0.9 % SODIUM CHLORIDE 10 ML SYRINGE IV PRN (07:22)
[2017-02-14] MEDS ORDERED: PANTOPRAZOLE 40 MG TABLET PO SCH (07:30)
[2017-02-14] MEDS ORDERED: LEVOTHYROXINE 88 MCG TABLET PO SCH (07:30)
[2017-02-14] MEDS ORDERED: LEVOTHYROXINE 50 MCG TABLET PO SCH (07:30)
[2017-02-14] MEDS: ENOXAPARIN 40 MG/0.4 ML SYRINGE SQ SCH (08:49)
[2017-02-14] MEDS: MAGNESIUM OXIDE 400 MG TABLET PO SCH (08:49)
[2017-02-14] MEDS: FAMOTIDINE/PF 20 MG/2 ML VIAL IV SCH (08:49)
[2017-02-14] MEDS ORDERED: PNEUMOCOCCAL 23-VAL P-SAC VAC 0.5 ML VIAL IM ONE (10:00)
[2017-02-14] MEDS ORDERED: ZOLPIDEM 5 MG TABLET PO PRN (11:07)
[2017-02-14] MEDS ORDERED: SUCRALFATE 1 GM/10 ML ORAL.SUSP PO SCH (11:15)
--- NOTE | 2017-02-14 13:11 | Discharge Summary ---
Medical - DS: Prov Patient information: Note initiated : 02/14/17 at 1:03 pm Service Date, if different from initiated Date: [] Patient: Unique Spencer 51 y/o F admitted on 02/12/17 for Nausea, Vomiting, Heart Racing. Chief Complaint: [] Date of admission: 02/12/17 23:58 Discharge date: 02/14/17 Primary care physician: Caroline Cardona Admitting clinician: Ashli Joseph Consults: Dr. Nickie Hayden Attending physician on discharge: Ashli Joseph Medical - DS: Meds - Discharge Medications Prescriptions: metFORMIN [Glucophage] 500 mg PO QAMCC #1 Ranitidine HCl 150 mg PO BIDAC #60 cap Active and Home Medications: Discharge medications: Zantac 150 mg p.o. twice daily Metformin decreased to 500 mg every morning Sucralfate 1 g p.o. 4 times daily with meals Levothyroxine 137 mcg daily Protonix 40 mg p.o. every morning Magnesium oxide 400 mg p.o. twice daily Mirtazapine 45 mg nightly Celexa 40 mg nightly Losartan 6.25 mg nightly Pravachol 40 mg nightly Ambien 5 mg nightly as needed Decrease Metformin dose. Discontinue Reglan Discontinue NovoLog Discontinue Amaryl Previous home Medications: Citalopram [Celexa] 40 mg PO HS 12/08/16 [History Confirmed 02/14/17 Last Taken 12/18/16 20:30] On hold --glimepiride [Amaryl] 2 mg PO QAMAC 12/08/16 [History Confirmed Last Taken 12/19/16 08:00] On hold --Insulin Aspart [Novolog] 2 unit SQ TIDAC 12/08/16 [History Confirmed 02/14/17 Last Taken 12/19/16 12:30] Levothyroxine Sodium [Synthroid] 137 mcg PO QAMAC 12/08/16 [History Confirmed Last Taken 12/18/16 08:00] Losartan [Cozaar] 6.25 mg PO HS 12/08/16 [History Confirmed 02/14/17 Last Taken 12/18/16 20:30] Mirtazapine [Remeron] 45 mg PO HS 12/08/16 [History Confirmed 02/14/17 Last Taken 12/18/16 20:30] Pravastatin [Pravachol] 40 mg PO HS 12/08/16 [History Confirmed 02/14/17 Last Taken 12/18/16 20:30] On hold --metFORMIN [Glucophage] 1,000 mg PO QAMCC 12/08/16 [History Confirmed 02/14/17 Last Taken 12/18/16 20:30] Patient stopped ---metoclopramide [Reglan] 10 mg PO ACHS #120 tab 12/27/16 [Rx Confirmed 02/14/17 Last Taken Unknown] Patient stopped ---pantoprazole 40 mg tablet,delayed release 40 mg PO QAM #30 tab 01/06/17 [Rx Confirmed 02/14/17 Last Taken Unknown] Magnesium Oxide [Magox 400] 400 mg PO BID #30 tablet 02/11/17 [Rx Confirmed Last Taken Unknown] Zolpidem Tartrate [Ambien] 5 mg PO HSP PRN #10 tablet 02/11/17 [Rx Confirmed Last Taken Unknown] Sucralfate [Carafate] 1 gm PO QIDP 02/14/17 [History Confirmed 02/14/17 Last Taken Unknown] On hold --metFORMIN [Glucophage] 500 mg PO QPMCC 02/14/17 [History Confirmed Last Taken Unknown] Medical - DS: Hosp Hospital course: Mr. Spencer is a 51 year old F February 12, 2017: History of present illness: Ms. Spencer is a 51 year old with a history of recurrent nausea, vomiting, diarrhea. She was last admitted here in December, and upper endoscopy showed severe gastritis and duodenitis. She was treated with omeprazole and Carafate. When she followed up with Dr. Hayden, she reported severe headaches. These resolved when she stopped the omeprazole. She was started on Protonix. She apparently did okay for a few weeks, but yesterday again developed nausea, vomiting, diarrhea. She presented to the emergency room, complaining also of palpitations and mild shortness of breath. She was noted to have low potassium and low magnesium, and also had 2 runs of V. tach on the monitor. She was given IV fluids, IV magnesium and potassium, and sent home. She returns to the ER today with continued abdominal pain, nausea, vomiting, diarrhea. Symptoms seem worse when she eats something. She has been feeling a little chilled and a little dizzy. She notes a sore throat and cough, that seem to be triggered by the vomiting. She denies blood in vomit or stool. Otherwise, she denies known fever, headache, new eye or ear symptoms. Today she does not have chest pain or palpitations or shortness of breath. She does note that she had constipation a few days ago, and had been straining to pass hard stools, prior to the diarrhea starting. She denies dysuria. ER evaluation today showed marked leukocytosis, and CT scan shows bowel inflammation. February 13: This morning, the patient notes she is feeling better. She is having less nausea and less abdominal pain. She still describes her discomfort is mostly lower abdomen, and not so much epigastric. She does say that she occasionally has heartburn. I quizzed her more closely this morning about her medications. She believes she stopped both the Reglan and the Protonix a couple of weeks ago, because she was having slight tremors of her hand, and she thought she had read that both of those could cause tardive dyskinesia. She believes she did continue to stay on the Carafate. Her medications usually arrive from the pharmacy in a bubble pack, but apparently she was removing the Protonix and Reglan. Otherwise, she denies fever or chills, sore throat or cough, chest pain or shortness of breath. She has not had vomiting or further diarrhea since admission. She denies dysuria, but does have a Garcia catheter in place. -The ER MD had told me last night that her CT was suggestive of enteritis. Formal reading on the CT scan from today, does not show any intestinal abnormalities. It does show thickening of the lower esophagus, which is not much different from the previous CT. -The patient also reports that her primary care physician had stopped her insulin and Amaryl recently, because her hemoglobin A1c was running so low. She has continued to take Celexa and iron, Synthroid, Cozaar, mirtazapine, multivitamin. She thinks she may have stopped the Pravachol, but is unsure. -Glucose and beta hydroxybutyrate levels were elevated last night, but blood gas does not show significant acidosis. She did have elevated anion gap yesterday, so I suspect she had a mixed metabolic acidosis with compensatory respiratory alkalosis. February 14: Hospital course: This patient was admitted with recurrent nausea vomiting and diarrhea. She was placed back on Protonix, as she had stopped that 2 weeks ago. Her symptoms improved rather quickly, and she is feeling much improved today. She also continues on Carafate 4 times a day plus IV Pepcid. Dr. Hayden looked over her studies and talked with the patient, and decided she should just continue with the current course for now. He did not see any reason for repeat endoscopy at this time. The patient says she is feeling back to normal, and is anxious to return home. She denies fever chills, chest pain or shortness of breath, abdominal pain, nausea or vomiting or diarrhea. She does ask that we make sure that she has a printed list of all the medication she should and should not be taking. On exam, she is awake and alert, pleasant and cooperative. Neck is supple without obvious lymphadenopathy or JVD. Cardiac exam shows regular rate and rhythm. Lungs clear to auscultation today. The patient states she takes no respiratory medications at home.. Abdomen is somewhat firm, without definite distention, without obvious tenderness. There is no rebound or guarding. Bowel sounds are active. There are no obvious masses. Extremities: Show no significant edema. She does have clubbing of her fingers, which she pointed out to me. Neurologic exam is grossly nonfocal. Assessment and plan: #1. GI/infectious disease. Patient presents with nausea, vomiting, diarrhea, and CT scan that today really does not show evidence of bowel inflammation. There is some thickening of her esophagus, and she is known to have previous severe gastritis and duodenitis, as well as reflux. She reportedly stopped her Protonix at home. I discussed with her that she likely really needs to stay on this. -She is now back on oral Protonix in addition to Carafate. She will also be transitioned from IV Pepcid over to oral Zantac today, as Dr. Hayden this is also promotes gastric emptying. I will have her continue to refrain from using the Reglan for now. -Lower abdominal discomfort also have resolved. -History of gastroparesis. History of GERD. -Added Zantac today. Continue proton pump inhibitor. Slowly advance diet, as tolerated. 2. Type 2 diabetes. Patient presents with signs of metabolic acidosis. Serum bicarb appears back to normal , and blood glucose goals are fairly normal. Accu-Cheks and sliding scale insulin coverage. -Resume Cozaar and Pravachol. 3. Renal. She presented with a picture of mixed metabolic acidosis and respiratory alkalosis. Improved. -Metformin has been on hold, and blood glucoses have been fine. I will have her add back just 500 mg of metformin each morning. She should probably not resume the high-dose metformin anymore, as that may be contributing to her GI symptoms. -Monitor Accu-Cheks at home. 4. Psychiatric. History of depression. Resume Celexa and mirtazapine. -It is unclear if she has some type of prior developmental delay. She does report past history of heavy alcohol abuse as well. She reports she has some kind of upper caser in the community. -We will ask home health to check in with her when she gets home, to verify that she understands how to take her medications. 5. Cardiac. -Reported history of runs of ventricular tachycardia 2 days ago. Telemetry today is suggestive of prolonged QT. Oral magnesium was resumed. She was stable on telemetry. -Hypertension. Blood pressure running low normal at this time. 6. History of hypothyroidism continue Synthroid. 7. CODE STATUS: Full code. 8. DVT prophylaxis: Lovenox. 9. Pulmonary. She does have some wheezing on exam Yesterday's chest x-ray did not show any infiltrates. Approximately 40 minutes has been spent so far today, reviewing patient's test results, interviewing and examining her, reviewing plan of care with her extensively, including the reason that she needs to stay on her Protonix and Carafate, reviewing plan of care with staff, and touching base with Dr. Hayden. Discharge diagnosis: Recurrent esophagitis, associated with abdominal pain, nausea vomiting. - Time Spent with Patient Total time spent providing and/or coordinating discharge services: Greater than 30 minutes Medical - DS: Exam - Constitutional Vitals: Vital Signs Temp Pulse Pulse Resp BP BP BP 02/14/17 12:13 119/80 02/14/17 11:00 97.6 F 20 119/80 02/14/17 07:28 16 02/14/17 07:10 57 L 111/73 02/14/17 07:07 97.4 F 52 L 16 111/73 02/14/17 06:00 07/31/17 05:39 128/70 02/14/17 05:00 02/14/17 04:00 98.2 F 16 128/70 02/14/17 03:00 02/14/17 02:00 02/14/17 01:00 02/14/17 00:18 51 L 123/69 02/14/17 00:00 98.2 F 16 123/69 02/13/17 21:26 02/13/17 21:22 02/13/17 20:00 98.3 F 16 105/71 02/13/17 19:41 52 L 105/71 02/13/17 19:40 51 L 02/13/17 15:59 97.8 F 52 L 16 02/13/17 15:57 52 L 104/70 BP Pulse Ox 02/14/17 12:13 02/14/17 11:00 98 02/14/17 07:28 02/14/17 07:10 99 02/14/17 07:07 98 02/14/17 06:00 97 02/14/17 05:39 02/14/17 05:00 100 02/14/17 04:00 100 02/14/17 03:00 97 02/14/17 02:00 98 02/14/17 01:00 99 02/14/17 00:18 99 02/14/17 00:00 100 02/13/17 21:26 88 L 02/13/17 21:22 91 02/13/17 20:00 98 02/13/17 19:41 97 02/13/17 19:40 98 02/13/17 15:59 104/70 98 02/13/17 15:57 95 Intake and Output 02/13/17 02/14/17 02/14/17 21:59 05:59 13:59 Intake Total 1230 / 1230 0 / 0 1350 / 1350 Output Total 250 / 250 1200 / 1200 575 / 575 Balance 980 / 980 -1200 / -1200 775 / 775 Intake: IV 1010 / 1010 1010 / 1010 Potassium Chloride 20 Meq 1010 / 1010 1010 / 1010 In Sodium Chloride 0.45% 1,000 ml @ 100 mls/hr IV .[id number] [facility] Rx#: [id number] Oral 220 / 220 0 / 0 340 / 340 Output: Urine Catheter Amount 250 / 250 1200 / 1200 575 / 575 Other: Meal Dinner Lunch Percent of Meal Consumed 100% 100% Feeding Ability Independent # Bowel Movements 0 Weight 163 lb Medical - DS: Data Labs on day of discharge: Labs from last 24 hours 02/14/17 02/14/17 03:30 03:30 WBC 9.4 RBC 3.54 L Hgb 12.1 Hct 35.3 L MCV 99.8 MCH 34.2 H MCHC 34.2 RDW 14.0 Plt Count 221 MPV 7.9 Gran % 57.4 Lymph % (Auto) 35.2 [place] % (Auto) 5.6 Eos % (Auto) 1.4 Baso % (Auto) 0.4 Gran # 5.4 Lymph # (Auto) 3.3 [place] # (Auto) 0.5 Eos # (Auto) 0.1 Baso # (Auto) 0 Sodium 138 Potassium 4.4 Chloride 104 Carbon Dioxide 23 Anion Gap 11.0 BUN 8 Creatinine 0.8 GFR Calculation 84 Glucose 122 H Uric Acid 2.7 Calcium 8.7 Phosphorus 3.7 Magnesium 1.9 Total Bilirubin 0.3 Direct Bilirubin < 0.2 GGT 14 AST 14 ALT 9 Alkaline Phosphatase 54 Lactate Dehydrogenase 139 Total Protein 5.8 L Albumin 2.9 L Globulin 2.9 Albumin/Globulin Ratio 1.0 Triglycerides 238 H February 12: CBC differential: Show 16,900 granulocytes Lactic acid: Normal at 1.3 Venous blood gas: Shows pH of 7.44, CO2 36, PO2 71 -Pro-calcitonin: Is pending. Urinalysis: Shows 150 mg glucose, 20 ketones, 8 red blood cells, negative leukocyte esterase and nitrites Chest x-ray: Normal chest x-ray. CT of the abdomen and pelvis: verbal report suggested enteritis, per ER MD.. However, formal report showed only mild thickening of the esophagus, and no signs of enteritis or colitis. EKG: Shows normal sinus rhythm, at a rate of approximately 75. Low voltage. Slow R-wave progression. Nonspecific ST-T changes noted. No significant change from February 11, 2017. Medical - DS: A/P - Patient/Caregiver Discharge Instructions Activity: increase activity as tolerated Diet: Consistent Carbohydrate Additional Instructions: 1. Your gastritis and esophagitis flared up again. Please resume Protonix/pantoprazole, 40 mg every morning. Add Zantac/ranitidine 150 mg twice a day Continue sucralfate 1 g 4 times a day 2. Glucoses have been well controlled. Cut your metformin down to 500 mg just once in the morning. 3. It is okay to stop taking the metoclopramide/Reglan. 4. Do not resume the insulin, or glimepiride /Amaryl. HOME HEALTH referral for medication management. 5.Your new medication list should be: Zantac/ranitidine 150 mg twice a day Protonix/pantoprazole 40 mg every morning Sucralfate/Carafate 1 g 4 times a day Decrease metformin to 500 mg every morning Levothyroxine 137 mcg every day Magnesium oxide 400 mg twice a day Mirtazapine 45 mg every evening Celexa 40 mg every evening Losartan 6.25 mg every night Pravachol 40 mg every night Ambien 5 mg at night, as needed for sleep We have discontinued your: Reglan/metoclopramide, NovoLog insulin, Amaryl/ glimepiride Prescriptions: metFORMIN [Glucophage] 500 mg PO QAMCC #1 Ranitidine HCl 150 mg PO BIDAC #60 cap - Problem Maintenance (1) Nausea & vomiting Status: Acute (2) Gastroenteritis Status: Acute (3) Diabetes mellitus Status: Chronic Qualifiers: Diabetes mellitus type: type 2 Diabetes mellitus complication status: without complication Diabetes mellitus terminal gauger insulin use: without terminal gauger use Qualified Code(s): E11.9 - Type 2 diabetes mellitus without complications (4) Depression Status: Chronic (5) Hypertension Status: Chronic Qualifiers: Hypertension type: essential hypertension Qualified Code(s): I10 - Essential (primary) hypertension - Follow up Plan Follow up with: Caroline Cardona ARNP [Primary Care Provider] - 02/18/17 9:55 am Disposition: Home Health Service Prognosis: Good Rehab Potential: Good I certify that the patient requires SNF services: No Overall status at discharge: patient is progressing back to baseline Medical - DS: Qual - VTE Deep Vein Thrombosis/Pulmonary Embolism Present on Admission: No
[2017-02-14] MEDS ORDERED: SIMVASTATIN 20 MG TABLET PO SCH (21:00)
[2017-02-14] MEDS ORDERED: LOSARTAN 25 MG TABLET PO SCH (21:00)
[2017-02-14] MEDS ORDERED: MIRTAZAPINE 15 MG TABLET PO SCH (21:00)
[2017-02-14] MEDS ORDERED: MAGNESIUM OXIDE 400 MG TABLET PO SCH (21:00)
[2017-02-14] MEDS ORDERED: CITALOPRAM 20 MG TABLET PO SCH (21:00)
[2017-02-15] MEDS ORDERED: NON FORMULARY MEDICATION 1 DOSE MISCELL (Levothyroxine Sodium [Synthroid] 137 MCG) PO SCH (07:30)
[2017-02-15] MEDS ORDERED: LEVOTHYROXINE 125 MCG TABLET PO SCH (07:30)
[2017-02-15] MEDS ORDERED: PANTOPRAZOLE 40 MG TABLET PO SCH (09:00)
[2017-02-16] MEDS ORDERED: LEVOTHYROXINE 50 MCG TABLET PO SCH (07:30)
[2017-02-16] MEDS ORDERED: LEVOTHYROXINE 88 MCG TABLET PO SCH (07:30)
== END 2017-02-14 15:00 | disposition home health service (06) | DRG 392 ==
LOC: ED 19:15 → ICU 23:58 → ED 23:58
PROVIDERS: ADMIT Internal Medicine; ATTEND Internal Medicine